=== PATIENT | female | born 1955 | race Caucasian/White ===

== ENCOUNTER → 2017-10-07 | Outpatient (CLI) | payer OTHER ==
[2017-10-07 12:25] LABS: HEMATOCRIT 41.5 % (37-47); HEMOGLOBIN 14.3 g/dL (12.0-16.0); MEAN CELL VOLUME 90.8 fL (80-100); MEAN CORPUSCULAR HEMOGLOBIN 31.3 pg (25-34); MEAN CORPUSCULAR HGB CONC 34.5 g/dl (32-36); MEAN PLATELET VOLUME 10.5 fL (7.4-10.4); PLATELET COUNT 293 K/uL (130-400); RED CELL DISTRIBUTION WIDTH CV 12.9 % (11.5-14.5); RED CELL DISTRIBUTION WIDTH SD 42.7 fL (36.4-46.3)
[2017-10-07 12:30] LABS: ALBUMIN 3.7 gm/dl (3.4-5.0); ALT/SGPT 24 U/L (12-78); BLOOD UREA NITROGEN 15 mg/dl (7-18); CALCIUM 9.3 mg/dl (8.5-10.1); CARBON DIOXIDE 27 mmol/L (21-32); CREATININE 0.55 mg/dl (0.60-1.20); GLUCOSE 96 mg/dl (70-99); SODIUM 138 mmol/L (136-145)
[2017-10-07 12:37] LABS: HEMOGLOBIN A1C 5.4 % (4.5-5.6)
[2017-10-07 12:41] LABS: ALKALINE PHOSPHATASE 66 U/L (45-117); AST/SGOT 11 U/L (15-37); TOTAL PROTEIN 7.6 gm/dl (6.4-8.2)
== END | disposition home or self-care (01) ==
LOC: C.LABPBG 10:56
PROVIDERS: ATTEND Physician Assistant
DX: R53.83 Other fatigue (principal); Z13.21 Encounter for screening for nutritional disorder; Z13.1 Encounter for screening for diabetes mellitus

== ENCOUNTER 2017-10-15 11:50 | Emergency (ER) | payer OTHER ==
[~2017-10-15] VITALS: Ht 152.4 cm; Wt 68.0 kg
[2017-10-15 12:08] VITALS: TEMP 36.9; Ht 152.4 cm; Wt 68.0 kg
--- NOTE | 2017-10-15 12:24 | EMERGENCY ROOM VISIT NOTE ---
History Report prepared by [place]: Chris Awan Under the Supervision of: Dr. Humza Lynn M.D. First contact with patient: 12:12 Chief Complaint: HYPOTENSION Stated Complaint: LOW BP History of Present Illness The patient is a 62 year old female who presents to the Emergency Room with complaints of nausea that began this morning. She has a past medical history of hypotension for the past year and has been following up with her PCP. However, she is not currently on any prescribed medications. When the patient woke up this morning, she took her blood pressure which was 102 systolically. She then began to feel very nauseated with an increased thirst. Over the past year, she has been very conscientious about her blood pressures and the foods she eats. She has been trying to increase her sodium intake and increase her fluid intake. Secondary to this, she has been urinating very frequently. She denies any abnormal leg swelling. She notes that she recently wore a Holter monitor but does not know the results yet. Her only change to her daily supplements was an increase of her Vitamin D. Source of History: patient Onset: this morning Position: other (GI) Symptom Intensity: moderate Quality: other (Nausea) Timing: constant Note: She has had an increased thirst. She denies any leg swelling. Review of Systems See HPI for pertinent positives & negatives. A total of 10 systems reviewed and were otherwise negative. Past Medical & Surgical Medical Problems: (1) Hypotension Family History Patient reports no known family medical history. Social History Smoking Status: Never Smoker Smokeless Tobacco Use: No Drug Use: none Occupation Status: employed Current/Historical Medications No Active Prescriptions or Reported Meds Allergies Coded Allergies: No Known Allergies (Unverified , 10/15/17) Physical Exam Vital Signs Date Time Temp Pulse Resp B/P (MAP) Pulse Ox O2 Delivery O2 Flow Rate FiO2 10/15/17 14:31 79 16 122/79 97 10/15/17 13:35 79 116/80 102 118/86 88 129/85 10/15/17 12:08 36.9 90 16 120/84 99 Room Air Physical Exam GENERAL: Patient is in no acute distress. HEENT: No acute trauma, normocephalic atraumatic, mucous membranes moist, no nasal congestion, no scleral icterus. NECK: No stridor, no adenopathy, no meningismus, trachea is midline. LUNGS: Clear to auscultation bilaterally, no wheeze, no rhonchi, breath sounds equal. HEART: Without murmurs gallops or rubs, regular rate and rhythm. ABDOMEN: Soft, nontender, bowel sounds positive, no hernias, no peritonitis. EXTREMITIES: No cyanosis or edema, full range of motion of all the joints without pain or difficulty, no signs for acute trauma. NEUROLOGIC: Oriented x 3, no acute motor or sensory deficits, no focal weakness. SKIN: No rash, no jaundice, no diaphoresis. Medical Decision & Procedures ER Provider Diagnostic Interpretation: Radiology results as stated below per my review and radiologist interpretation: CHEST ONE VIEW PORTABLE CLINICAL HISTORY: EVALUATE ALTERED MENTAL STATUS/WEAKNESS COMPARISON STUDY: No previous studies for comparison. FINDINGS: An oval-shaped partially calcified focus overlying the right lower chest likely reflects a calcified right breast implant. The lung volumes are normal. There is no pneumothorax or pleural effusion. Pulmonary vascularity is normal. Cardiac size is normal. Mediastinal contours are unremarkable. IMPRESSION: No acute cardiopulmonary findings. Electronically signed by: Kiran Morgan M.D. 10/15/2017 12:56 PM Dictated Date/Time: 10/15/2017 12:55 PM Laboratory Results 10/15/17 12:30 Red Blood Count 4.78, Mean Corpuscular Volume 91.0, Mean Corpuscular Hemoglobin 31.2, Mean Corpuscular Hemoglobin Concent 34.3, Mean Platelet Volume 10.0, Neutrophils (%) (Auto) 72.8, Lymphocytes (%) (Auto) 17.0, Monocytes (%) (Auto) 8.2, Eosinophils (%) (Auto) 1.2, Basophils (%) (Auto) 0.5, Neutrophils # (Auto) 7.75, Lymphocytes # (Auto) 1.81, Monocytes # (Auto) 0.87, Eosinophils # (Auto) 0.13, Basophils # (Auto) 0.05 10/15/17 12:30 Test 10/15/17 12:30 10/15/17 12:35 White Blood Count 10.64 K/uL (4.8-10.8) Red Blood Count 4.78 M/uL (4.2-5.4) Hemoglobin 14.9 g/dL (12.0-16.0) Hematocrit 43.5 % (37-47) Mean Corpuscular Volume 91.0 fL (80-100) Mean Corpuscular Hemoglobin 31.2 pg (25-34) Mean Corpuscular Hemoglobin Concent 34.3 g/dl (32-36) Platelet Count 270 K/uL (130-400) Mean Platelet Volume 10.0 fL (7.4-10.4) Neutrophils (%) (Auto) 72.8 % Lymphocytes (%) (Auto) 17.0 % Monocytes (%) (Auto) 8.2 % Eosinophils (%) (Auto) 1.2 % Basophils (%) (Auto) 0.5 % Neutrophils # (Auto) 7.75 K/uL (1.4-6.5) Lymphocytes # (Auto) 1.81 K/uL (1.2-3.4) Monocytes # (Auto) 0.87 K/uL (0.11-0.59) Eosinophils # (Auto) 0.13 K/uL (0-0.5) Basophils # (Auto) 0.05 K/uL (0-0.2) RDW Standard Deviation 42.3 fL (36.4-46.3) RDW Coefficient of Variation 12.8 % (11.5-14.5) Immature Granulocyte % (Auto) 0.3 % Immature Granulocyte # (Auto) 0.03 K/uL (0.00-0.02) Anion Gap 6.0 mmol/L (3-11) Est Creatinine Clear Calc Drug Dose 78.4 ml/min Estimated GFR () 110.8 Estimated GFR (Non- 95.6 BUN/Creatinine Ratio 20.6 (10-20) Calcium Level 9.7 mg/dl (8.5-10.1) Magnesium Level 2.4 mg/dl (1.8-2.4) Total Bilirubin 0.2 mg/dl (0.2-1) Aspartate Amino Transf (AST/SGOT) 10 U/L (15-37) Alanine Aminotransferase (ALT/SGPT) 24 U/L (12-78) Alkaline Phosphatase 66 U/L (45-117) Troponin I < 0.015 ng/ml (0-0.045) Total Protein 8.1 gm/dl (6.4-8.2) Albumin 4.0 gm/dl (3.4-5.0) Globulin 4.1 gm/dl (2.5-4.0) Albumin/Globulin Ratio 1.0 (0.9-2) Thyroid Stimulating Hormone (TSH) 1.810 uIu/ml (0.300-4.500) Urine Color YELLOW Urine Appearance CLEAR (CLEAR) Urine pH 6.5 (4.5-7.5) Urine Specific [place] 1.011 (1.000-1.030) Urine Protein NEG (NEG) Urine Glucose (UA) NEG (NEG) Urine Ketones NEG (NEG) Urine Occult Blood NEG (NEG) Urine Nitrite NEG (NEG) Urine Bilirubin NEG (NEG) Urine Urobilinogen NEG (NEG) Urine Leukocyte Esterase NEG (NEG) Laboratory results reviewed by me. ECG Indication: nausea Rate (beats per minute): 86 Rhythm: normal sinus Findings: no acute ischemic change, no ectopy Change: ECG interpreted by me ED Course 1212: The patient was evaluated in room C1. A complete history and physical exam was performed. 1300: The patient's orthostatic vital signs were negative. 1355: I spoke with Vanessa Anderson PA-C of family practice at this time. We discussed the patient's case. She recommended following up with cardiology in the near future. 1422: Reevaluated the patient. Discussed results and discharge instructions: She verbalized understanding and agreement. The patient is ready for discharge. Medical Decision Differential diagnosis includes but is not limited to dehydration, electrolyte imbalance, UTI, infection, cardiomegaly, dysrhythmia, and anemia. There is no leukocytosis or concerning anemia. No significant electrolyte abnormality, kidney failure or hepatitis. The patient appears to be in a euthyroid state. Orthostatic vital signs are negative. EKG shows a sinus rhythm, no acute ischemia. Cardiac enzyme testing 1 is not consistent with acute cardiac injury. Urinalysis does not show infection. Chest film does not show pneumonia, pneumothorax or cardiomegaly. The patient presents with concerns for her blood pressure. Her pressure has been somewhat low at times but nothing thought critical. The patient was reassured by her workup. I did contact her family doctor's office. The patient will be seen in the outpatient office for a reexam and possibly further testing if felt indicated. I did suggest the patient try some salt tablets over -the-counter, this may help the blood pressure. I did tell her to stop checking her blood pressure so frequently. Medication Reconcilliation Current Medication List: was personally reviewed by me Blood Pressure Screening Patient's blood pressure: Low blood pressure Consults Time Called: 1350 Consulting Physician: Vanessa Anderson PA-C - [facility] Returned Call: [phone] We discussed the patient's case. She recommended following with cardiology in the near future. Impression Primary Impression: Lightheadedness Scribe Attestation The scribe's documentation has been prepared under my direction and personally reviewed by me in its entirety. I confirm that the note above accurately reflects all work, treatment, procedures, and medical decision making performed by me. Departure Information Dispostion Home / Self-Care Prescriptions No Active Prescriptions or Reported Meds Referrals No Doctor, Assigned (PCP) Susy Anderson PA-C Forms HOME CARE DOCUMENTATION FORM, IMPORTANT VISIT INFORMATION, WORK / SCHOOL INSTRUCTIONS Patient Instructions My [facility] Additional Instructions call and set up appt with mariama smiley today stop checking your blood pressure so often consider salt tablets otc as discussed workup today was all ok
[2017-10-15 12:47] LABS: BASO % 0.5 %; BASO ABS # 0.05 K/uL (0-0.2); EOS % 1.2 %; EOS ABS # 0.13 K/uL (0-0.5); HEMATOCRIT 43.5 % (37-47); HEMOGLOBIN 14.9 g/dL (12.0-16.0); IG# 0.03 K/uL (0.00-0.02); LYMPH ABS # 1.81 K/uL (1.2-3.4); MEAN CORPUSCULAR HEMOGLOBIN 31.2 pg (25-34); MEAN CORPUSCULAR HGB CONC 34.3 g/dl (32-36); MONO % 8.2 %; MONO ABS # 0.87 K/uL (0.11-0.59); NEUT % 72.8 %; NEUT ABS # 7.75 K/uL (1.4-6.5); PLATELET COUNT 270 K/uL (130-400); RED CELL DISTRIBUTION WIDTH CV 12.8 % (11.5-14.5); RED CELL DISTRIBUTION WIDTH SD 42.3 fL (36.4-46.3); WHITE BLOOD COUNT 10.64 K/uL (4.8-10.8)
--- NOTE | 2017-10-15 12:57 | DIAGNOSTIC IMAGING REPORT ---
CHEST ONE VIEW PORTABLE CLINICAL HISTORY: EVALUATE ALTERED MENTAL STATUS/WEAKNESS COMPARISON STUDY: No previous studies for comparison. FINDINGS: An oval-shaped partially calcified focus overlying the right lower chest likely reflects a calcified right breast implant. The lung volumes are normal. There is no pneumothorax or pleural effusion. Pulmonary vascularity is normal. Cardiac size is normal. Mediastinal contours are unremarkable. IMPRESSION: No acute cardiopulmonary findings. Electronically signed by: Kiran Morgan M.D. 10/15/2017 12:56 PM Dictated Date/Time: 10/15/2017 12:55 PM
[2017-10-15 13:04] LABS: ALT/SGPT 24 U/L (12-78); BLOOD UREA NITROGEN 13 mg/dl (7-18); CALCIUM 9.7 mg/dl (8.5-10.1); CARBON DIOXIDE 27 mmol/L (21-32); CREATININE 0.64 mg/dl (0.60-1.20); GLUCOSE 98 mg/dl (70-99); POTASSIUM 4.1 mmol/L (3.5-5.1); SODIUM 136 mmol/L (136-145)
[2017-10-15 13:15] LABS: ALKALINE PHOSPHATASE 66 U/L (45-117); AST/SGOT 10 U/L (15-37); TOTAL PROTEIN 8.1 gm/dl (6.4-8.2)
[2017-10-15 14:31] VITALS: BP 122/79; PULSE 79; O2SAT 97
== END 2017-10-15 14:32 | disposition home or self-care (01) ==
LOC: C.EDB 11:51 → C.EDC 14:32
DX: R42 Dizziness and giddiness (principal); R35.0 Frequency of micturition

== ENCOUNTER → 2017-11-14 | Day surgery (SDC) | payer OTHER ==
[~2017-11-14] VITALS: Ht 165.1 cm; Wt 68.1 kg
[2017-11-14 09:40] VITALS: BP 133/84; PULSE 92; O2SAT 96; Ht 165.1 cm; Wt 68.1 kg
--- NOTE | 2017-11-14 11:43 | [facility] Operative Report ---
Operative Report Date of Service Nov 14, 2017. Operative Report Procedure performed: Tilt-table test Indication: Dizziness Procedure in detail The patient was informed the risks benefits alternatives to the intended procedure. She understood such which proceed. She was placed in a supine position on the tilt table and secured into place. Continuous monitoring was then initiated which included pulse oximetry, telemetry and intermittent blood pressure monitoring. Patient wants subsequent tilted to 70 degrees and monitored for symptoms and hemodynamics. At the conclusion of the test the patient was returned to the supine position. Hemodynamics and symptoms were allowed to return to normal prior to discharge. The patient tolerated procedure well. There no immediate complications. Findings: Initial blood pressure was 133/84 There were no significant changes in blood pressure or pulse with tilt-table testing There were no symptoms reported The blood pressure at discharge was 116/82 with a pulse of 81 Impression: Normal head-up tilt table test without symptoms or hemodynamic derangement I attest to the content of the Intraoperative Record and any orders documented therein. Any exceptions are noted below.
== END | disposition home or self-care (01) ==
LOC: C.CATH 09:07
PROVIDERS: ATTEND Internal Medicine Clinical Cardiac Electrophysiology
DX: R42 Dizziness and giddiness (principal); F17.200 Nicotine dependence, unspecified, uncomplicated; Z82.49 Family history of ischemic heart disease and other diseases of the circulatory system; Z83.3 Family history of diabetes mellitus; Z80.0 Family history of malignant neoplasm of digestive organs; Z80.3 Family history of malignant neoplasm of breast; Z98.51 Tubal ligation status

== ENCOUNTER → 2018-01-28 | Outpatient (CLI) | payer OTHER ==
--- NOTE | 2018-01-29 15:23 | MAMMOGRAPHY REPORT ---
BILATERAL DIGITAL SCREENING MAMMOGRAM WITH CAD: 01/28/2018 CLINICAL HISTORY: Routine screening. Patient has no complaints. TECHNIQUE: Bilateral CC and MLO views of the breasts with and without implant displacement views were obtained. Current study was also evaluated with a Computer Aided Detection (CAD) system. COMPARISON: Prior outside mammograms dated 04/27/2016, 10/27/2015, diagnostic spot compression views fr om 10/27/2015 and breast ultrasounds dated 10/27/2015 and 04/27/2016. BREAST COMPOSITION: The tissue of both breasts is heterogeneously dense, which may obscure small mas ses. FINDINGS: Bilateral subglandular implants are stable comparing to the prior outside mammograms. The left implant is a saline filled implant, and the right appears to be silicone. There are stable howard gn-appearing partially circumscribed and lobulated masses bilaterally. No new suspicious mass, archi tectural distortion or cluster of microcalcifications is seen. IMPRESSION: ACR BI-RADS CATEGORY 1: NEGATIVE There is no mammographic evidence of malignancy. A 1 year screening mammogram is recommended. The pa tient will receive written notification of the results. Approximately 10% of breast cancers are not detected with mammography. A negative mammographic report should not delay biopsy if a clinically suggestive mass is present. Lyudmila Bowers M.D. ay/:01/29/2018 12:41:09 Pacu Rn: Al Holliday M, [facility] letter sent: Normal 1/2 BI-RADS Code: ACR BI-RADS Category 1: Negative
== END | disposition home or self-care (01) ==
LOC: C.MAMM 12:54
PROVIDERS: ATTEND Physician Assistant
DX: Z12.31 Encounter for screening mammogram for malignant neoplasm of breast (principal); Z98.82 Breast implant status

== ENCOUNTER → 2018-02-03 | Outpatient (CLI) | payer OTHER | END | disposition home or self-care (01) | LOC: C.LABPBG 07:26 | PROVIDERS: ATTEND Physician Assistant | DX: E55.9 Vitamin D deficiency, unspecified (principal); Z00.00 Encounter for general adult medical examination without abnormal findings ==

== ENCOUNTER 2018-11-15 21:49 | Inpatient (IN) ==
[2018-11-15] MEDS ORDERED: SODIUM CHLORIDE 0.9% 1000ML 1,000 ML IV SCH (22:15)
[2018-11-15 22:31] LABS: Basophils # (auto) 0.01 K/uL (0-0.2); Basophils % (auto) 0.1 %; Eosinophils # (auto) 0.02 K/uL (0-0.5); Eosinophils % (auto) 0.3 %; Hemoglobin 9.6 g/dL (12.0-16.0); Immature Granulocytes # (auto) 0.01 K/uL (0.00-0.02); Immature Granulocytes % (auto) 0.1 %; Lymphocytes % (auto) 14.5 %; Mean Corpuscular Hgb Conc 34.3 g/dL (32-36); Mean Corpuscular Volume 92.7 fL (80-100); Monocytes # (auto) 0.05 K/uL (0.11-0.59); Monocytes % (auto) 0.7 %; Neutrophils # (auto) 6.38 K/uL (1.4-6.5); Neutrophils % (auto) 84.3 %; Platelet Count 303 K/uL (130-400); RDW Coefficient of Variation 14.9 % (11.5-14.5); RDW Standard Deviation 50.8 fL (36.4-46.3); Red Blood Count 3.02 M/uL (4.2-5.4); White Blood Count 7.57 K/uL (4.8-10.8)
[2018-11-15 22:51] LABS: Appearance Urine Clear (Clear); Bacteria Urine Automated Negative (Negative); Bilirubin Urine Negative (Negative); Blood Urine Negative (Negative); Cast Urine Automated 0 /lpf (0-5); Color Urine Yellow; Epithelial Cell Urine Auto >30 /lpf (0-5); Glucose Urine UA Negative (Negative); Ketones Urine Negative (Negative); Leukocyte Esterase Urine Trace (Negative); Nitrite Urine Negative (Negative); Protein Urine 1+ (Negative); RBC Urine Automated 0-4 /hpf (0-4); Specific Gravity Urine 1.015 (1.000-1.030); Urobilinogen Urine Negative (Negative)
[2018-11-15 22:53] LABS: Alanine Aminotransferase 39 U/L (12-78); Albumin Level 3.2 gm/dl (3.4-5.0); Aspartate Aminotransferase 34 U/L (15-37); Blood Urea Nitrogen 23 mg/dl (7-18); Calcium 6.4 mg/dl (8.5-10.1); Carbon Dioxide 27 mmol/L (21-32); Chloride 95 mmol/L (98-107); Est GFR (African American) 78.9; Glucose 121 mg/dl (70-99); Potassium 3.8 mmol/L (3.5-5.1); Sodium 132 mmol/L (136-145)
[2018-11-15 23:03] LABS: Albumin Globulin Ratio 0.9 (0.9-2); Alkaline Phosphatase 120 U/L (45-117); Bilirubin,Total 0.3 mg/dl (0.2-1); Creatine Kinase 58 U/L (26-192); Globulin 3.6 gm/dl (2.5-4.0); Total Protein 6.8 gm/dl (6.4-8.2); Troponin I < 0.015 ng/ml (0-0.045)
[2018-11-15] MEDS ORDERED: ONDANSETRON INJ 2 MG/ML 2 ML VIAL IV STA (23:23)
[2018-11-15] MEDS ORDERED: METOCLOPRAMIDE HCL INJ 5 MG/ML 2 ML VIAL IV STA (23:25)
--- NOTE | 2018-11-16 00:21 | History & Physical Report ---
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 Presents with nausea, vomiting and weakness. The pt received chemotherapy this week on Sat, Sat, [place] with Etoposide and Cisplatinum. Her symptoms have progressed since completing the chemo. She was at [facility] earlier in the day and was treated with IVF and antiemetics and released. Her symptoms recurred shortly after discharge. She does not have fevers, rigors. diarrhea, SOB or dysuria. 1) Intractable nausea and vomiting - placed on IVF, antiemetics. We will introduce a liquid diet AM as possible. 2) Lung CA - she has requested to see her oncologist so that we ahve placed o consult to address potential side effects of her current regimen. 3) SIADH - Na is at baseline or improved 4) Chronic pain - she is not tolerating PO so we have placed her on IV Narcotics for breakthrough and will continue her TD Fentanyl. 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 Presents with nausea, vomiting and weakness. The pt received chemotherapy this week on Sat, Sat, [place] with Etoposide and Cisplatinum. Her symptoms have progressed since completing the chemo. She was at [facility] earlier in the day and was treated with IVF and antiemetics and released. Her symptoms recurred shortly after discharge. She does not have fevers, rigors. diarrhea, SOB or dysuria. 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 Social: Does not smoke or drink, however, she has a 40+ pack year history Family: CA, CAD Allergies Allergy/AdvReac Type Severity Reaction Status Date / Time epinephrine AdvReac Mild Palpitation Verified 08/11/18 21:35 s Home Medications Home Medications Medication Instructions Recorded Confirmed Type cholecalciferol (vitamin D3) 2,000 unit PO DAILY 07/18/18 11/15/18 History [Vitamin D3] multivitamin 1 tab PO DAILY 07/18/18 11/15/18 History lorazepam [Ativan] 1 mg PO HS PRN 08/11/18 11/15/18 History ondansetron HCl [Zofran] 8 mg PO Q8 PRN 08/11/18 11/15/18 History oxycodone 5 - 10 mg PO Q4 PRN 08/11/18 11/15/18 History prochlorperazine maleate 10 mg PO UD PRN 08/11/18 11/15/18 History [Compazine] loratadine [Allergy Relief 10 mg PO DAILY #30 tab 09/06/18 11/15/18 Rx (loratadine)] tramadol 50 mg PO Q4H PRN #30 tab 09/06/18 11/15/18 Rx fentanyl [Duragesic] 1 patch TOPICAL [id number] 11/15/18 11/15/18 History Past Med/Surg History Medical History Leukocytosis Anemia Elevated LFTs Sacroiliac dysfunction Liver metastases (Acute) Small cell lung carcinoma (Acute) SIADH (syndrome of inappropriate ADH production) (Acute) Weakness (Acute) Lung mass (Acute) Family History Other Diabetes Social History Preferred Language: Citizen Of [place] Beliefs That Will Affect Care: None marital status: / Current Living Situation: Alone Feels Safe at Home: Yes Smoking Status: Former smoker Hx Alcohol Use: No Hx Substance Use: No Review of Systems Gen: Denies fevers, reprts weakness, malaise "feeling shaky" ENT: Denies congestion, throat pain, hearing loss Eyes: Denies acute visual changes CV: Denies CP, palpitations Pulmonary: Denies SOB, cough, wheezing GI: Nausea and vomiting as above. Neuro: Denies acute or unilateral weakness, acute gait impairment, headache or acute visual changes Musculoskeletal: Chronic back pain Endocrine: Denies polydipsia, polyuria Skin: Denies acute rashes or ulcers Physical Exam Vital Signs (Past 24 Hours): Last Vital Signs Temp 37.0 C 11/15/18 21:51 Pulse 105 H 11/15/18 23:36 Resp 18 11/15/18 23:36 BP 123/80 11/15/18 23:36 Pulse Ox 98 11/15/18 23:36 Physical Exam: General: Middle-aged F with a depressed affect, AAO x 3. ENT: No erythema or exudates, no thrush Eyes: HERO, EOMI Head and neck: Normocephalic, atraumatic, No JVD, neck is supple, alopecia noted. Chest/heart: Nontender, S1,2, RRR, no murmurs, no gallops Lungs: CTAB, no wheezing or crackles Abdomen: Nontender, nondistended, BS+ Neuro: AAO x 3, speech is clear, no unilateral weakness or loss of sensation, coordination intact Musculoskeletal: No joint inflammation, muscle tenderness, FROM Skin: No acute rashes or ulcers Extremities: No clubbing, cyanosis, edema
[2018-11-16] MEDS ORDERED: ACETAMINOPHEN 325 MG TAB PO PRN (00:56)
[2018-11-16] MEDS ORDERED: MoRPHine SULFATE 4 MG/ML 1 ML CARP\\VIAL IV PRN (00:56)
[2018-11-16] MEDS ORDERED: OXYCODONE HCL IR 5 MG TAB (IMMEDIATE RELEASE) PO PRN (00:56)
[2018-11-16] MEDS ORDERED: ALUMINUM/MAGNESIUM SUSP 30 ML UDC PO PRN (00:56)
[2018-11-16] MEDS ORDERED: MAGNESIUM HYDROXIDE SUSP 30 ML UDC PO PRN (00:56)
[2018-11-16] MEDS ORDERED: POLYETHYLENE (MIRALAX) 17 GM PACK PO PRN (00:56)
[2018-11-16] MEDS ORDERED: ZOLPIDEM TARTRATE 5 MG TAB PO PRN (00:56)
[2018-11-16] MEDS: D5NSS + 20MEQ KCL 20 MEQ/1,000 ML BAG IV SCH ×2 (01:21→08:58)
[2018-11-16] MEDS: CHECK FENTANYL PATCH PLACEMENT SCH ×3 (01:26→23:14)
--- NOTE | 2018-11-16 06:33 | XRay Report ---
XR abdomen 2V w PA chest HISTORY: 63 years-old Female Pt c/o abd pain acute generalized abdominal pain COMPARISON: CT abdomen pelvis 11/07/2018, chest radiograph 09/03/2018 TECHNIQUE: PA view of the chest with erect and supine views of the abdomen FINDINGS: Cardiomediastinal and hilar silhouettes are within normal limits. No pneumothorax, pleural effusion, focal airspace consolidation or overt pulmonary edema. Capsular calcification about the right breast. 1.3 cm sclerotic lesion of the proximal right humerus is new from 09/03/2018. Please at Ill-defined sclerosis about the pelvis and spine with 1.1 cm sclerotic lesion of the right iliac wing . No evidence of acute pathologic fracture. Bowel gas pattern is nonobstructive. No urolith. No pneum atosis or pneumoperitoneum. IMPRESSION: 1. No acute cardiopulmonary abnormality. 2. Nonobstructive bowel gas pattern. 3. Diffuse sclerotic metastasis redemonstrated. The above report was generated using voice recognition software. It may contain grammatical, syntax o r spelling errors. Electronically signed by: Je Simmons M.D. 11/16/2018 6:32 AM
[2018-11-16] MEDS: HEPARIN SOD 5,000 UNIT/0.5 ML VIAL SQ SCH ×2 (08:58→20:30)
[2018-11-16] MEDS: fentaNYL 25 MCG/HR TDSY TD SCH (09:01)
[2018-11-16 09:36] LABS: Alanine Aminotransferase 36 U/L (12-78); Albumin Level 3.1 gm/dl (3.4-5.0); Aspartate Aminotransferase 33 U/L (15-37); BUN Creatinine Ratio 21.1 (10-20); Blood Urea Nitrogen 16 mg/dl (7-18); Calcium 6.2 mg/dl (8.5-10.1); Carbon Dioxide 30 mmol/L (21-32); Chloride 98 mmol/L (98-107); Est GFR (African American) 99.9; Est GFR (Non-African American) 86.2; Glucose 102 mg/dl (70-99); Potassium 3.7 mmol/L (3.5-5.1); Sodium 132 mmol/L (136-145)
[2018-11-16 09:37] LABS: Albumin Globulin Ratio 0.9 (0.9-2); Alkaline Phosphatase 127 U/L (45-117); Bilirubin,Total 0.3 mg/dl (0.2-1); Globulin 3.5 gm/dl (2.5-4.0); Total Protein 6.6 gm/dl (6.4-8.2)
--- NOTE | 2018-11-16 10:14 | Consultation Report ---
DATE OF CONSULTATION: 11/16/2018 MEDICAL ONCOLOGY CONSULTATION REASON FOR CONSULTATION: The patient admitted for intractable nausea and vomiting and generalized weakness. HISTORY OF PRESENT ILLNESS: Oralia Nuñez is a very pleasant, but unfortunate 63-year-old female patient who presents to [facility]'s Emergency Room for intractable nausea and vomiting, generalized weakness. Oralia is a patient of mine, diagnosed with extensive-stage small cell lung cancer in July of 2018. At that time, she demonstrated hepatic metastatic disease as well as intrathoracic disease. Interestingly, her bone scan was negative despite complaining of skeletal pain on presentation. She was subsequently started on combination cisplatin and etoposide. Specifically on 11/13/2018, she received day 3 of her fifth cycle of treatment. The patient had been seen by JOAQUIN Cohen and reviewed her most recent treatment scans which revealed markedly decreased left hilar neoplasm with decreased size of mediastinal adenopathy. Interestingly, there was interval development of numerous sclerotic metastatic lesions throughout the bony skeleton. There were still innumerable hepatic metastases redemonstrated. Oralia continues to maintain a decent performance status. When I saw her at bedside, she proclaimed to be feeling better, but still has not taken any solid foods. As part of workup, KUB was performed showing no evidence of small-bowel obstruction. From a laboratory standpoint, she is mildly anemic and her sodium is slightly below normal at 132. 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 PAST MEDICAL HISTORY: Again, significant for extensive stage small cell lung cancer, SIADH, chronic anemia. CURRENT MEDICATIONS: Include fentanyl 25 mcg topically q. 72 hours, tramadol 50 mg p.o. q. 4 hours p.r.n., loratadine 10 mg p.o. daily, Compazine 10 mg p.o. q. 6 hours p.r.n., oxycodone 5-10 mg p.o. q. 4 hours p.r.n., Zofran 8 mg p.o. q. 8 hours p.r.n., Ativan 1 mg p.o. at bedtime p.r.n., multivitamin 1 p.o. daily, cholecalciferol 2000 units p.o. daily. ALLERGIES: EPINEPHRINE. SOCIAL HISTORY: [place] She is . She is a nonsmoker and nondrinker. She does have a 33-[id number] history. FAMILY HISTORY: Positive for coronary artery disease and cancer. REVIEW OF SYSTEMS: As per HPI, most notably for asthenia, generalized weakness, poor appetite and intractable nausea and vomiting. No fevers, chills or sweats. SKIN: No rashes or lesions. Severe alopecia is noted. HEENT: Negative for headaches, lightheadedness or dizziness. No acute visual or hearing deficits. No sinus symptoms, sore throat or dysphagia. LYMPH: No history of lymphoproliferative disease. CARDIAC: Negative for coronary artery disease, no angina or palpitations. PULMONARY: Negative for COPD. She is not short of breath, dyspneic or orthopneic. No cough or hemoptysis. GASTROINTESTINAL: Positive for nausea and vomiting. She has no subacute abdominal pain. No diarrhea or constipation, hematochezia or melena stools. GENITOURINARY: No hematuria, dysuria, or urinary incontinence. PSYCHIATRIC: Positive for anxiety. MUSCULOSKELETAL: Positive for diffuse musculoskeletal pain attributable to her disease today. No arthralgias or myalgias. ENDOCRINE: Negative for diabetes or thyroid disease. NEUROLOGIC: Negative for seizure, stroke, or migraine headache. HEMATOLOGIC: Positive for anemia attributable to chemotherapy. PHYSICAL EXAMINATION: GENERAL: Very pleasant 63-year-old female in no acute distress. VITAL SIGNS: Temperature 36.7, pulse 102, respiratory rate 18, blood pressure 121/83. SKIN: Warm, dry, noncyanotic without petechia, rash or ecchymosis. HEENT: Head: Atraumatic, normocephalic. Eyes: PERRLA, EOMI. Sclerae nonicteric. Alopecia is noted. Nares are patent without rhinorrhea or discharge. Throat clear. Tongue midline. No buccal lesions or ulceration. NECK: Supple, trachea midline. No JVD or thyromegaly. LYMPH: No cervical, supraclavicular or axillary palpable nodes. HEART: Regular rate and rhythm. No clicks, rubs, murmurs or gallops. LUNGS: Clear to auscultation bilaterally. ABDOMEN: Soft, nontender, nondistended without palpable hepatosplenomegaly. EXTREMITIES: No calf tenderness or swelling. No clubbing, cyanosis or edema. NEUROLOGICALLY: She is awake, alert and oriented x3. Cranial nerves II-XII are intact. No gross motor or sensory deficits are noted. LABORATORY DATA: Sodium 132, potassium 3.8, chloride 95, carbon dioxide 27, creatinine 0.9, BUN 23, albumin 3.2. WBC is 7570, hemoglobin 9.6, platelet count 303,000. IMPRESSION: 1. Asthenia attributable to chemotherapeutic effect. 2. Anorexia. 3. Extensive small cell lung cancer. 4. Hypoalbuminemia. PLAN: I visited with Oralia at bedside this morning. The patient is well known to [facility], currently under my care for lung cancer. She is in the midst of her fifth out of 6 cycles of cisplatin and etoposide. For the most part, she has done relatively well, had been able to manage her symptomatology in the past. I suspect as with many patients when treatment progresses forward, these adverse effects emerge. She feels much better today. She is not started solid foods, however, and would give her another 24 hours to make sure she is tolerating her diet. I agree with medical management otherwise which is largely supportive. There is no evidence of emerging infection or other issues to prolong her stay. Continue pain management. Encourage p.o. intake moving forward. Oralia is scheduled to return prior to her sixth and final cycle and most likely we will reduce her dose. Mid treatment scans show a mixed picture with most of the visceral disease showing response; however, skeletal disease appears to have emerged despite normal bone scan at diagnosis back in July. We will discuss further with Oralia upon followup. Thank you for your assistance in caring for this very nice lady. Dr. Ohara will take over service tomorrow.
--- NOTE | 2018-11-16 11:40 | Family Medicine Progress Note ---
Date of Service November 16, 2018 Assessment & Plan (1) Intractable nausea and vomitin yo F with history of Small Cell Lung Carcinoma with metastasis to Liver, Bone, chronic LFT elevations, SIADH, anemia. Presents with nausea, vomiting and weakness in the setting of recent chemotherapy. Nausea/Vomiting -- improving - chemo-therapy induced - Abdominal XR negative for obstruction, though findings indicative metastasis - Continue IV fluids, IV Zofran PRN (2) Small cell lung carcinoma: Small Cell Lung cancer with metastasis to Bone, Liver - Pain control - Anti-emetics as above - patient of Dr. Holbrook--consult at request of patient (3) SIADH (syndrome of inappropriate ADH production): Na 132 on arrival--near or better than baseline range s/p 2 L IV fluids with D5with 20mEq K on admission Continue IV fluids at maintenance rate (4) Chronic pain: PRN Morphine, PRN Oxycodone (5) DVT prophylaxis: Heparin (6) Generalized weakness: multifactorial due to malignancy, chemotherapy, dehydration in setting of N/V - IV fluids as above - PT/OT consulted -F/u Heme-Onc report Supervising Physician Co-Signing Physician Notes Patient seen and examined with Dr. Henson. Agree with history, physical exam, assessment and plan of care as outlined. Reviewed H&P. In brief, Ms. Nuñez is a 63 year old female with hx of small cell lung ca with hepatic and bone mets, chronic LFT elevation, SIADH, and anemia who is admitted for intractable nausea and vomiting following chemotherapy earlier this week. She had tried anti-emetics at home, but had persistent vomiting. This morning, she is feeling better. Had not had any vomiting, but feeling generally weak and getting dizzy when she gets up. Was able to tolerate liquids then small bites of solid food without emesis. Able to ambulate to the bathroom independently. VSS. Moist mucus membranes. Abdomen soft, nontender. Labs reviewed. Imaging reviewed. 1. intractable nausea/vomiting--improving. Cont IVFs and PRN anti-emetics. If improving throughout the day, can slow IVF rate and continue to PO challenge. 2. small cell lung cancer. per heme/onc. 3. protein malnutrition. nutrition consult. 4. SIADH secondary to lung ca. Na at or better than baseline. 5. chronic pain. Continue home pain regimen. Dispo: anticipate discharge in the next day or two as she continues to improve clinically. Subjective Patient reports resolution of N/V as of this morning. She is experiencing generalized weakness, occasional lightheadedness. She is tolerating food in small amounts. She denies abdominal pain, change in stools, fevers, chills Constitutional: + weakness; no fever and no chills Respiratory: no cough and no dyspnea Cardiovascular: no chest pain, no dyspnea, no palpitations and no edema Gastrointestinal: + nausea (resolved) and + vomiting (resolved); no change in stools Genitourinary (Female): no dysuria, no urinary frequency and no urinary urgency Physical Exam Vital Signs (Past 24 Hours): Last Vital Signs Temp 36.7 C 11/16/18 07:32 Pulse 102 H 11/16/18 07:32 Resp 18 11/16/18 07:32 BP 121/83 11/16/18 07:32 Pulse Ox 97 11/16/18 07:32 Constitutional: WD/WN, vitals as above no acute distress Eyes: PERRL and EOM intact bilaterally ENMT: external ear and nose normal, oropharynx normal Neck: trachea midline, no thyromegaly Respiratory: normal respiratory effort, lungs clear to auscultation Cardiovascular: RRR, no murmur, no edema Gastrointestinal (Abdomen): normal bowel sounds, soft, nontender, no hepatosplenomegaly Musculoskeletal: no cyanosis or clubbing, extremities motor strength 5/5 Skin: no rashes, warm and dry Neurologic: PERRL, EOMI, accommodation nl, no face palsy, no dysarthria CN's II-XI intact bilaterally (grossly) and awake Psychiatric: A+Ox3, euthymic affect Results & Data Laboratory Results Laboratory Results WBC 7.57 K/uL (4.8-10.8) 11/15/18 22:25 RBC 3.02 M/uL (4.2-5.4) L 11/15/18 22:25 Hgb 9.6 g/dL (12.0-16.0) L 11/15/18 22:25 Hct 28.0 % (37-47) L 11/15/18 22:25 MCV 92.7 fL (80-100) 11/15/18 22:25 MCH 31.8 pg (25-34) 11/15/18 22:25 MCHC 34.3 g/dL (32-36) 11/15/18 22:25 RDW Std Deviation 50.8 fL (36.4-46.3) H 11/15/18 22:25 RDW Coeff of Tesfaye 14.9 % (11.5-14.5) H 11/15/18 22:25 Plt Count 303 K/uL (130-400) 11/15/18 22: MPV 9.0 fL (7.4-10.4) 11/15/18 22:25 Immature Gran % (Auto) 0.1 % 11/15/18 22:25 Neut % (Auto) 84.3 % 11/15/18 22:25 Lymph % (Auto) 14.5 % 11/15/18 22:25 [place] % (Auto) 0.7 % 11/15/18 22: Eos % (Auto) 0.3 % 11/15/18 22: Baso % (Auto) 0.1 % 11/15/18 22: Immature Gran # (Auto) 0.01 K/uL (0.00-0.02) 11/15/18 22:25 Neut # (Auto) 6.38 K/uL (1.4-6.5) 11/15/18 22:25 Lymph # (Auto) 1.10 K/uL (1.2-3.4) L 11/15/18 22:25 [place] # (Auto) 0.05 K/uL (0.11-0.59) L 11/15/18 22:25 Eos # (Auto) 0.02 K/uL (0-0.5) 11/15/18 22:25 Baso # (Auto) 0.01 K/uL (0-0.2) 11/15/18 22:25 Sodium 132 mmol/L (136-145) L 11/16/18 08:49 Potassium 3.7 mmol/L (3.5-5.1) 11/16/18 08:49 Chloride 98 mmol/L (98-107) 11/16/18 08:49 Carbon Dioxide 30 mmol/L (21-32) 11/16/18 08:49 Anion Gap 4.0 (3-11) 11/16/18 08:49 BUN 16 mg/dl (7-18) 11/16/18 08:49 Creatinine 0.74 mg/dl (0.6-1.2) 11/16/18 08:49 Est Cr Clr Drug Dosing Not Reportable 11/16/18 08:49 Est GFR ( Amer) 99.9 11/16/18 08:49 Est GFR (Non-Af Amer) 86.2 11/16/18 08:49 BUN/Creatinine Ratio 21.1 (10-20) H 11/16/18 08:49 Glucose 102 mg/dl (70-99) H 11/16/18 08:49 POC Glucose 133 (70-99) H 11/16/18 07:46 Calcium 6.2 mg/dl (8.5-10.1) L 11/16/18 08:49 Total Bilirubin 0.3 mg/dl (0.2-1) 11/16/18 08:49 AST 33 U/L (15-37) 11/16/18 08:49 ALT 36 U/L (12-78) 11/16/18 08:49 Alkaline Phosphatase 127 U/L (45-117) H 11/16/18 08:49 Total Creatine Kinase 58 U/L (26-192) 11/15/18 22:25 Troponin I < 0.015 ng/ml (0-0.045) 11/15/18 22:25 Total Protein 6.6 gm/dl (6.4-8.2) 11/16/18 08:49 Albumin 3.1 gm/dl (3.4-5.0) L 11/16/18 08:49 Globulin 3.5 gm/dl (2.5-4.0) 11/16/18 08:49 Albumin/Globulin Ratio 0.9 (0.9-2) 11/16/18 08:49 TSH 1.760 uIu/ml (0.300-4.500) 11/15/18 22:25 Urine Color Yellow 11/15/18 22:30 Urine Appearance Clear (Clear) 11/15/18 22:30 Urine pH 7.0 (4.5-7.5) 11/15/18 22:30 Ur Specific [place] 1.015 (1.000-1.030) 11/15/18 22:30 Urine Protein 1+ (Negative) H 11/15/18 22:30 Urine Glucose (UA) Negative (Negative) 11/15/18 22:30 Urine Ketones Negative (Negative) 11/15/18 22:30 Urine Blood Negative (Negative) 11/15/18 22:30 Urine Nitrite Negative (Negative) 11/15/18 22:30 Urine Bilirubin Negative (Negative) 11/15/18 22:30 Urine Urobilinogen Negative (Negative) 11/15/18 22:30 Ur Leukocyte Esterase Trace (Negative) H 11/15/18 22:30 Urine WBC (Auto) 1-5 /hpf (0-5) 11/15/18 22:30 Urine RBC (Auto) 0-4 /hpf (0-4) 11/15/18 22:30 U Hyaline Cast (Auto) 0 /lpf (0-5) 11/15/18 22:30 U Epithel Cells (Auto) >30 /lpf (0-5) H 11/15/18 22:30 Urine Bacteria (Auto) Negative (Negative) 11/15/18 22:30 Medications Administered Fentanyl (Duragesic) 25 mcg TD Q72H [facility] Stop: 11/30/18 07:59 Last Admin: 11/16/18 09:01 Dose: 25 mcg Documented by: [id number] Heparin Sodium (Porcine) (Heparin Sodium (Porcine)) 5,000 units SQ Q12 [facility] Stop: 12/16/18 08:59 Last Admin: 11/16/18 08:58 Dose: 5,000 units Documented by: [id number] Cosigned by: [id number] Miscellaneous (Fentanyl Patch Check Placement) 1 ea N/A QS [facility] Stop: 12/16/18 01:29 Last Admin: 11/16/18 15:56 Dose: 1 ea Documented by: [id number] Admin: 11/16/18 01:26 Dose: 1 ea Documented by: [id number] Miscellaneous (Fentanyl Patch Remove & Waste) 1 ea N/A Q72H [facility] Stop: 12/16/18 07:58 Last Admin: 11/16/18 08:58 Dose: 1 ea Documented by: [id number] Cosigned by: [id number] Ondansetron HCl (Zofran) 4 mg IV Q6H PRN PRN Reason: Nausea Stop: 12/16/18 00:55 Last Admin: 11/16/18 15:54 Dose: 4 mg Documented by: [id number] Discontinued Medications Sodium Chloride (Nss 1000ml) 1,000 mls @ 999 mls/hr IV .Q1H1M [facility] Stop: 11/15/18 23:15 Last Infusion: 11/15/18 23:56 Dose: 0 mls/hr Documented by: [id number] Admin: 11/15/18 22:22 Dose: 999 mls/hr Documented by: [id number] Potassium Chloride/Dextrose/Sod Cl (D5nss + 20meq Kcl) 20 meq in 1,000 mls @ 150 mls/hr IV .Q6H40M [facility] Stop: 11/16/18 14:19 Last Infusion: 11/16/18 17:37 Dose: 0 mls/hr Documented by: [id number] Admin: 11/16/18 08:58 Dose: 150 mls/hr Documented by: [id number] Infusion: 11/16/18 08:02 Dose: 150 mls/hr Documented by: [id number] Admin: 11/16/18 01:21 Dose: 150 mls/hr Documented by: [id number] Metoclopramide HCl (Reglan) 10 mg IV NOW STA Stop: 11/15/18 23:26 Last Admin: 11/15/18 23:58 Dose: 10 mg Documented by: [id number] Ondansetron HCl (Zofran) 4 mg IV NOW STA Stop: 11/15/18 23:24 Last Admin: 11/15/18 23:58 Dose: 4 mg Documented by: [id number]
[2018-11-16] MEDS: ONDANSETRON INJ 2 MG/ML 2 ML VIAL IV PRN ×2 (15:54→22:12)
[2018-11-16] MEDS: NSS + 20MEQ KCL 20 MEQ/1,000 ML BAG IV SCH (18:47)
[2018-11-17] MEDS: NSS + 20MEQ KCL 20 MEQ/1,000 ML BAG IV SCH ×3 (04:40→23:29)
[2018-11-17] MEDS: ONDANSETRON INJ 2 MG/ML 2 ML VIAL IV PRN ×4 (04:54→18:25)
[2018-11-17] MEDS: CHECK FENTANYL PATCH PLACEMENT SCH ×3 (08:42→23:30)
[2018-11-17] MEDS: HEPARIN SOD 5,000 UNIT/0.5 ML VIAL SQ SCH ×2 (08:43→20:47)
[2018-11-17] MEDS ORDERED: ONDANSETRON INJ 2 MG/ML 2 ML VIAL IV ONE (08:55)
[2018-11-17] MEDS: PROCHLORPERAZINE MALEATE 5 MG TAB PO PRN ×2 (15:28→20:54)
--- NOTE | 2018-11-17 15:38 | Family Medicine Progress Note ---
Date of Service November 17, 2018 Assessment & Plan (1) Chemotherapy induced nausea and vomitin-year-old female was admitted on 16 November 2018 for nausea, vomiting, and weakness. Of note, she was diagnosed with metastatic (to liver and bone) small cell lung cancer in July 2018 and is presently on chemotherapy. Chemotherapy-induced nausea and vomiting: Patient is s/p multiple cycles of chemotherapy the past few days. X-ray of chest and abdomen noted no acute cardiopulmonary abnormality or evidence of bowel obstruction (see full report). Afebrile but borderline tachycardic. Oncology consulted, see related note. They generally recommend supportive management and will continue to follow. - On Zofran as needed. Added Compazine as needed. - On maintenance IV fluids. Anemia: Admit hemoglobin 9.6 (comparisons between 10-11). Is presently on chemotherapy. Monitoring. Hypocalcemia: Admit calcium 6.2. On chemotherapy. Monitoring. Protein malnutrition: Albumin of 3.1. Nutrition consult (see full report). Recommended supplementation with boost. Ongoing medical issues: - SIADH: On admit, Na 132. Given 2L IVF. Monitoring. - Chronic pain: On scheduled fentanyl patch. On as needed oxycodone and morphine. - Generalized weakness: Multifactorial due to malignancy and chemotherapy. Code status: Full code. Diet: Regular. DVT prophy: Heparin 5000 units every 12 hours. PT/OT: Ordered. Disbo: Admitted for observation to [facility]. - Given the severity of her disease, we will consult palliative care so they can begin discussions of overall goals of care. (2) Anemia: (3) Hypocalcemia: (4) Protein malnutrition: (5) SIADH (syndrome of inappropriate ADH production): (6) Small cell lung carcinoma: (7) Chronic pain: (8) Weakness: Supervising Physician Co-Signing Physician Notes Patient seen and examined with the resident. Agree with history, physical exam, assessment and plan with the following updates/corrections: 63yo F w/ stage IV small cell lung cancer on chemotherapy who presented with nausea and vomiting. Today she continues to have nausea and trouble eating. No emesis for me. Very dispirited about her prognosis. 1) Small cell lung cancer - Progressing despite treatment. Just had her 5th of 6 treatments. Will likely dose reduce per oncology notes. Palliative care consult for general goals of care and symptom discussion. 2) Anemia - Baseline hgb ~10, currently 9.6. No signs of bleeding. Likely chronic disease and/or bone marrow suppresion from chemo. Monitor. Subjective Found patient resting comfortably earlier this morning. She says she continues to have some nausea with a single episode of emesis earlier today. Overall she does feel hungry. She notes that she "feels guilty" and is quite frustrated over the idea that she wants to eat but that it is difficult for her to do so. She says she continues to pick at her food in hopes of getting in enough calories. She denied any focal pains or other physical concerns. Does say that she has some family in the area and that her cousin may come by later today. Physical Exam Vital Signs (Past 24 Hours): Last Vital Signs Temp 36.8 C 11/17/18 15:29 Pulse 97 H 11/17/18 15:29 Resp 20 11/17/18 15:29 BP 116/79 11/17/18 15:29 Pulse Ox 92 11/17/18 15:29 Physical Exam: General Appearance: Awake, alert & oriented, comfortable in general, NAD. CV: +S1S2 RRR, no murmur. Pulm: Clear to auscultation throughout. Abdomen: +BS, soft, non-tender, non-distended. Extremities: No pedal edema or calf tenderness. Moving all extremities natu rally and easily. Neuro: No gross neuro deficits. Psych: Overall seems to feel down, near tearful at times, and is sad about her current uncontrolled nausea. Results & Data Laboratory Results Laboratory Results WBC 7.57 K/uL (4.8-10.8) 11/15/18 22:25 RBC 3.02 M/uL (4.2-5.4) L 11/15/18 22:25 Hgb 9.6 g/dL (12.0-16.0) L 11/15/18 22:25 Hct 28.0 % (37-47) L 11/15/18 22:25 MCV 92.7 fL (80-100) 11/15/18 22:25 MCH 31.8 pg (25-34) 11/15/18 22:25 MCHC 34.3 g/dL (32-36) 11/15/18 22:25 RDW Std Deviation 50.8 fL (36.4-46.3) H 11/15/18 22:25 RDW Coeff of Tesfaye 14.9 % (11.5-14.5) H 11/15/18 22:25 Plt Count 303 K/uL (130-400) 11/15/18 22:25 MPV 9.0 fL (7.4-10.4) 11/15/18 22:25 Immature Gran % (Auto) 0.1 % 11/15/18 22:25 Neut % (Auto) 84.3 % 11/15/18 22:25 Lymph % (Auto) 14.5 % 11/15/18 22:25 [place] % (Auto) 0.7 % 11/15/18 22:25 Eos % (Auto) 0.3 % 11/15/18 22:25 Baso % (Auto) 0.1 % 11/15/18 22:25 Immature Gran # (Auto) 0.01 K/uL (0.00-0.02) 11/15/18 22: Neut # (Auto) 6.38 K/uL (1.4-6.5) 11/15/18 22:25 Lymph # (Auto) 1.10 K/uL (1.2-3.4) L 11/15/18 22:25 [place] # (Auto) 0.05 K/uL (0.11-0.59) L 11/15/18 22:25 Eos # (Auto) 0.02 K/uL (0-0.5) 11/15/18 22:25 Baso # (Auto) 0.01 K/uL (0-0.2) 11/15/18 22:25 Sodium 132 mmol/L (136-145) L 11/16/18 08:49 Potassium 3.7 mmol/L (3.5-5.1) 11/16/18 08:49 Chloride 98 mmol/L (98-107) 11/16/18 08:49 Carbon Dioxide 30 mmol/L (21-32) 11/16/18 08:49 Anion Gap 4.0 (3-11) 11/16/18 08:49 BUN 16 mg/dl (7-18) 11/16/18 08:49 Creatinine 0.74 mg/dl (0.6-1.2) 11/16/18 08:49 Est Cr Clr Drug Dosing Not Reportable 11/16/18 08:49 Est GFR ( Amer) 99.9 11/16/18 08:49 Est GFR (Non-Af Amer) 86.2 11/16/18 08:49 BUN/Creatinine Ratio 21.1 (10-20) H 11/16/18 08:49 Glucose 102 mg/dl (70-99) H 11/16/18 08:49 POC Glucose 133 (70-99) H 11/16/18 07:46 Calcium 6.2 mg/dl (8.5-10.1) L 11/16/18 08:49 Total Bilirubin 0.3 mg/dl (0.2-1) 11/16/18 08:49 AST 33 U/L (15-37) 11/16/18 08:49 ALT 36 U/L (12-78) 11/16/18 08:49 Alkaline Phosphatase 127 U/L (45-117) H 11/16/18 08:49 Total Creatine Kinase 58 U/L (26-192) 11/15/18 22:25 Troponin I < 0.015 ng/ml (0-0.045) 11/15/18 22:25 Total Protein 6.6 gm/dl (6.4-8.2) 11/16/18 08:49 Albumin 3.1 gm/dl (3.4-5.0) L 11/16/18 08:49 Globulin 3.5 gm/dl (2.5-4.0) 11/16/18 08:49 Albumin/Globulin Ratio 0.9 (0.9-2) 11/16/18 08:49 TSH 1.760 uIu/ml (0.300-4.500) 11/15/18 22:25 Urine Color Yellow 11/15/18 22:30 Urine Appearance Clear (Clear) 11/15/18 22:30 Urine pH 7.0 (4.5-7.5) 11/15/18 22:30 Ur Specific [place] 1.015 (1.000-1.030) 11/15/18 22:30 Urine Protein 1+ (Negative) H 11/15/18 22:30 Urine Glucose (UA) Negative (Negative) 11/15/18 22:30 Urine Ketones Negative (Negative) 11/15/18 22:30 Urine Blood Negative (Negative) 11/15/18 22:30 Urine Nitrite Negative (Negative) 11/15/18 22:30 Urine Bilirubin Negative (Negative) 11/15/18 22:30 Urine Urobilinogen Negative (Negative) 11/15/18 22:30 Ur Leukocyte Esterase Trace (Negative) H 11/15/18 22:30 Urine WBC (Auto) 1-5 /hpf (0-5) 11/15/18 22:30 Urine RBC (Auto) 0-4 /hpf (0-4) 11/15/18 22:30 U Hyaline Cast (Auto) 0 /lpf (0-5) 11/15/18 22:30 U Epithel Cells (Auto) >30 /lpf (0-5) H 11/15/18 22:30 Urine Bacteria (Auto) Negative (Negative) 11/15/18 22:30 Medications Administered Current Inpatient Medications Acetaminophen (Tylenol) 650 mg PO Q4H PRN PRN Reason: pain/fever Stop: 12/16/18 00:55 Al Hydrox/Mg Hydrox/Simethicone (Maalox) 30 ml PO Q6H PRN PRN Reason: Dyspepsia Stop: 12/16/18 00:55 Fentanyl (Duragesic) 25 mcg TD Q72H [facility] Stop: 11/30/18 07:59 Last Admin: 11/16/18 09:01 Dose: 25 mcg Documented by: Heparin Sodium (Porcine) (Heparin Sodium (Porcine)) 5,000 units SQ Q12 [facility] Stop: 12/16/18 08:59 Last Admin: 11/17/18 08:43 Dose: 5,000 units Documented by: Potassium Chloride/Sodium Chloride (Normal Saline W/20 Meq Kcl) 20 meq in 1,000 mls @ 100 mls/hr IV .Q10H [facility] Stop: 12/16/18 18:14 Last Admin: 11/17/18 13:03 Dose: 100 mls/hr Documented by: Magnesium Hydroxide (Milk Of Magnesia) 30 ml PO Q6H PRN PRN Reason: Constipation Stop: 12/16/18 00:55 Miscellaneous (Fentanyl Patch Check Placement) 1 ea N/A QS [facility] Stop: 12/16/18 01:29 Last Admin: 11/17/18 15:29 Dose: 1 ea Documented by: [email or web address] (Fentanyl Patch Remove & Waste) 1 ea N/A Q72H [facility] Stop: 12/16/18 07:58 Last Admin: 11/16/18 08:58 Dose: 1 ea Documented by: Morphine Sulfate (Morphine Sulfate) 4 mg IV Q4H PRN PRN Reason: Pain Stop: 11/30/18 00:55 Ondansetron HCl (Zofran) 4 mg IV Q6H PRN PRN Reason: Nausea Stop: 12/16/18 00:55 Last Admin: 11/17/18 13:03 Dose: 4 mg Documented by: Oxycodone HCl (Roxicodone Immediate Rel) 5 - 10 mg PO Q4 PRN PRN Reason: Pain Stop: 11/30/18 00:55 Polyethylene Glycol (Miralax Powder Packet) 17 gm PO DAILY PRN PRN Reason: Constipation Stop: 12/16/18 00:55 Prochlorperazine (Compazine) 5 mg PO Q4H PRN PRN Reason: Nausea And Vomiting Stop: 12/17/18 13:44 Last Admin: 11/17/18 15:28 Dose: 5 mg Documented by: Zolpidem Tartrate (Ambien) 5 mg PO HS PRN PRN Reason: Sleep Stop: 12/16/18 00:55 Resident Activity Tracking Resident Involvement: Resident Care Provided Care Provided: Adult Hospital Medicine
[2018-11-18] MEDS: PROCHLORPERAZINE MALEATE 5 MG TAB PO PRN ×3 (03:32→15:57)
[2018-11-18 06:07] LABS: Basophils # (auto) 0.06 K/uL (0-0.2); Basophils % (auto) 1.2 %; Eosinophils # (auto) 0.02 K/uL (0-0.5); Eosinophils % (auto) 0.4 %; Hematocrit (blood only) 24.3 % (37-47); Hemoglobin 8.4 g/dL (12.0-16.0); Immature Granulocytes # (auto) 0.06 K/uL (0.00-0.02); Immature Granulocytes % (auto) 1.2 %; Lymphocytes # (auto) 1.29 K/uL (1.2-3.4); Lymphocytes % (auto) 26.7 %; Mean Corpuscular Hgb Conc 34.6 g/dL (32-36); Mean Corpuscular Volume 93.8 fL (80-100); Mean Platelet Volume 9.4 fL (7.4-10.4); Monocytes # (auto) 0.11 K/uL (0.11-0.59); Monocytes % (auto) 2.3 %; Neutrophils % (auto) 68.2 %; Platelet Count 192 K/uL (130-400); RDW Coefficient of Variation 14.5 % (11.5-14.5); RDW Standard Deviation 50.6 fL (36.4-46.3); Red Blood Count 2.59 M/uL (4.2-5.4); White Blood Count 4.84 K/uL (4.8-10.8)
[2018-11-18 06:47] LABS: RBC Morphology Unremarkable
[2018-11-18 06:50] LABS: BUN Creatinine Ratio 22.9 (10-20); Blood Urea Nitrogen 15 mg/dl (7-18); Calcium 7.1 mg/dl (8.5-10.1); Carbon Dioxide 27 mmol/L (21-32); Chloride 101 mmol/L (98-107); Est GFR (African American) 110.1; Glucose 86 mg/dl (70-99); Potassium 4.5 mmol/L (3.5-5.1); Sodium 135 mmol/L (136-145)
[2018-11-18] MEDS: CHECK FENTANYL PATCH PLACEMENT SCH ×3 (07:37→23:21)
[2018-11-18] MEDS: ONDANSETRON INJ 2 MG/ML 2 ML VIAL IV PRN (07:42)
[2018-11-18] MEDS: MAGNESIUM SULFATE / D5W 1 GM/100 ML BAG IV SCH ×3 (08:09→11:57)
[2018-11-18] MEDS: HEPARIN SOD 5,000 UNIT/0.5 ML VIAL SQ SCH ×2 (08:12→21:20)
[2018-11-18] MEDS: NSS + 20MEQ KCL 20 MEQ/1,000 ML BAG IV SCH ×2 (09:52→19:14)
--- NOTE | 2018-11-18 13:58 | Palliative Care Consultation ---
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 Holbrook. She lives alone at home and has been progressively getting weaker and having intractable nausea and vomiting. Three weeks ago she completed her last combination chemotherapy of Cisplatin and Etoposide. Additional PMH is LFT elevation and chronic anemia. Palliative Care was consulted to discuss goals of care and symptom management. -Discussed Palliative Care and how we can be involved with Goals of care, symptom and pain management. -Pain and symptom regimen discussed - please see below. 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 -Patient changed to DNR in the computer. -Patient still interested in pursuing aggressive chemotherapy to complete 6 cycles. Encouraged her to follow up with palliative outpatient. Palliative Performance Scale: 60% (2) Hypomagnesemia: -Managed by Hospitalists -Today, Mg+ 1.0 --> being replaced IV with 2 G (3) Intractable nausea and vomiting: -Pt currently receiving Zofran 4mg IV Q6 PRN and Compazine 5mg IV Q8 PRN -Pt has receiving 3 doses of Zofran over past 24 hours and 2 doses of Compazine over past 24 hours -Pt home regimen is Zofran 4mg po Q8 and Compazine 5mg po Q6 which she says works well. -I would suggest scheduling her Zofran as it appears it was hard to get her symptoms under control this morning. -Suggesting Zofran 4mg po Q8 and Compazine 5mg po Q6. Will discuss with Hospitalist. -Per discussion with Palliative MD, consider Haldol low dose should patient not respond to scheduled Zofran. (4) Chronic pain: Malignancy pain Patient currently uses Fentanyl 25 mcg TD Q72 Patient also has Morphine 4mg IV Q4 PRN and Oxy IR 5-10 mg po Q4 PRN. She has not used any dosing for breakthrough over past 24 hours Discussion with patient, indicates that pain is well controlled (5) Small cell lung carcinoma: -Patient managed by Dr. Holbrook -currently on dosing schedule 5/6 of Cisplatin/Etoposide -Last dose was 3 weeks ago -No Neutropenia noted Supervising Physician Co-Signing Physician Notes Chart reviewed, patient seen and examined-no friends or family at bedside. Patient slowly improving-states at home she does well if she alternates her scheduled Zofran was scheduled Compazine-she reports she does not get drowsy at all with the Compazine. PE: Appears comfortable, no acute distress HEENT: EOMI, normal hearing Respirations: Unlabored CV: Regular rate Abdomen: Soft, positive bowel sounds Neuro: Alert and oriented x4 Agree with above note, assessment and plan as per JOAQUIN Quintanilla -agree with scheduling both the Compazine and Zofran as this has been beneficial for the patient in the past-if nausea is controlled patient will be able to tolerate p.o. and be able to to be discharged home. Patient's goal is to complete her last cycle of chemo with further plans per oncology Will continue to follow and assist with care as needed History of Present Illness Reason for Consultation: goals of care Requesting Physician: Dr. 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 Holbrook. She lives alone at home and has been progressively getting weaker and having intractable nausea and vomiting. Three weeks ago she completed her last combination chemotherapy of Cisplatin and Etoposide. Additional PMH is LFT elevation and chronic anemia. Palliative Care was consulted to discuss goals of care and symptom management. Please see assessment and plan for further details. Thank you kindly for consulting the Palliative Care Team. We will follow through her hospitalization as needed. Allergies Allergy/AdvReac Type Severity Reaction Status Date / Time aspartame AdvReac Intermediate Headache Verified 11/16/18 15:20 epinephrine AdvReac Mild Palpitation Verified 08/11/18 21:35 s Home Medications Home Medications Medication Instructions Recorded Confirmed Type cholecalciferol (vitamin D3) 2,000 unit PO DAILY 07/18/18 11/15/18 History [Vitamin D3] multivitamin 1 tab PO DAILY 07/18/18 11/15/18 History lorazepam [Ativan] 1 mg PO HS PRN 08/11/18 11/15/18 History ondansetron HCl [Zofran] 8 mg PO Q8 PRN 08/11/18 11/15/18 History oxycodone 5 - 10 mg PO Q4 PRN 08/11/18 11/15/18 History prochlorperazine maleate 10 mg PO UD PRN 08/11/18 11/15/18 History [Compazine] loratadine [Allergy Relief 10 mg PO DAILY #30 tab 09/06/18 11/15/18 Rx (loratadine)] tramadol 50 mg PO Q4H PRN #30 tab 09/06/18 11/15/18 Rx fentanyl [Duragesic] 1 patch TOPICAL [id number] 11/15/18 11/15/18 History Patient History Medical History Leukocytosis Anemia Elevated LFTs Sacroiliac dysfunction Liver metastases (Acute) Small cell lung carcinoma (Acute) SIADH (syndrome of inappropriate ADH production) (Acute) Weakness (Acute) Lung mass (Acute) Family History Other Diabetes Social History Communication Ability: Effective Beliefs That Will Affect Care: None marital status: / Current Living Situation: Alone Feels Safe at Home: Yes Safety Concerns: Feels Safe At This Time Smoking Status: Former smoker Hx Alcohol Use: No Hx Substance Use: No Review of Systems General: Patient denies overall pain. See A/P for details HEENT: Pt denies SILVA, dizziness, (+) nausea, but no vomiting. No visual changes CV: Pt denies CP, palpitations, edema Resp: Pt denies SOB, breathing changes GI: Pt states appetite has improved. Pt denies bloating, distension, bowel changes : Pt denies urinary changes Skin: Pt denies skin changes Psych: Pt denies depressive symptoms, feels overall 'charged' and optomistic but realistic Physical Exam Vital Signs (Past 24 Hours): Last Vital Signs Temp 36.8 C 11/18/18 11:19 Pulse 101 H 11/18/18 11:19 Resp 20 11/18/18 11:19 BP 111/74 11/18/18 11:19 Pulse Ox 96 11/18/18 11:19 Constitutional: well developed, well nourished and + ill appearing Eyes: PERRL, conjunctivae normal, anicteric sclerae ENMT: external ear and nose normal, oropharynx normal Neck: trachea midline, no thyromegaly Respiratory: normal respiratory effort, lungs clear to auscultation Cardiovascular: Rate/Rhythm: regular rate and regular rhythm Heart Sounds: normal S1 and normal S2 Gastrointestinal (Abdomen): normal bowel sounds, soft, nontender, no hepatosplenomegaly Skin: + crusts (on head), + dry skin, + hair thinning and + patchy alopecia Psychiatric: Eye Contact: good eye contact Affect: + flat affect Insight: good insight Judgement: good judgement Time Spent Midlevel Total time spent 70 minutes with > 50% of that time spent reviewing the chart, assessing the patient, discussing GOALS OF CARE with the patient at the bedside.
--- NOTE | 2018-11-18 14:09 | Family Medicine Progress Note ---
Date of Service November 18, 2018 Assessment & Plan (1) Chemotherapy induced nausea and vomitin-year-old female was admitted on 16 November 2018 for nausea, vomiting, and weakness. Of note, she was diagnosed with metastatic (to liver and bone) small cell lung cancer in July 2018 and is presently on chemotherapy. Chemotherapy-induced nausea and vomiting: Patient is s/p multiple cycles of chemotherapy the past few days prior to admit. X-ray of chest and abdomen noted no acute cardiopulmonary abnormality or evidence of bowel obstruction (see full report). Afebrile and still borderline tachycardic. Oncology consulted, see related note. They generally recommend supportive management and will continue to follow. On as needed Zofran and Compazine. On maintenance IV fluids. Anemia: Admit hemoglobin 9.6 (comparisons between 10-11), down to 8.4. Is presently on chemotherapy. Monitoring. Hypocalcemia: Admit calcium 6.2, improved to 7.1. On chemotherapy. Monitoring. Hypomagnesemia: Mg as low as 1.0. Replaced, will recheck. Protein malnutrition: Hypoalbuminemia. Nutrition consult (see full report). Recommended supplementation with boost. Ongoing medical issues: - SIADH: On admit, Na 132. Given 2L IVF, improved. Monitoring. - Chronic pain: On scheduled fentanyl patch as well as oxycodone and morphine (both prn). - Generalized weakness: Multifactorial due to malignancy and chemotherapy. Code status: Full code. Diet: Regular. DVT prophy: Heparin 5000 units every 12 hours. PT/OT: Ordered. PT cleared patient. Disbo: Changed to full admit on medsurg. - Given the severity of her disease, consulted palliative care so they can begin discussions of overall goals of care. (2) Anemia: (3) Hypocalcemia: (4) Protein malnutrition: (5) SIADH (syndrome of inappropriate ADH production): (6) Small cell lung carcinoma: (7) Chronic pain: (8) Weakness: (9) Hypomagnesemia: Supervising Physician Co-Signing Physician Notes Patient seen and examined with the resident. Agree with history, physical exam, assessment and plan with the following updates/corrections: 63yo F w/ stage IV small cell lung cancer on chemotherapy who presented with nausea and vomiting. Today, she continues to have nausea and trouble eating. No emesis. Feels these symptoms might be somewhat better after starting the compazine yesterday. The smell of food is causes some nausea. 1) Small cell lung cancer - Progressing despite treatment. Just had her 5th of 6 treatments. Will likely reduce next dose per oncology notes. Palliative care consult for general goals of care and symptom discussion. 2) Anemia - Baseline hgb ~10, currently 8.4. Gradually trending down. No signs of bleeding. Likely chronic disease and/or bone marrow suppresion from chemo. Monitor. Subjective Found patient resting comfortably earlier this morning. She says that she had a special order sandwich made which she was able to keep down around dinnertime. She notes a more severe episode of nausea this morning which she attributes to missing a as needed dose of her Zofran. She remains frustrated that she is hungry but still has difficulty keeping down enough food. Otherwise she notes no particular acute concerns. Physical Exam Vital Signs (Past 24 Hours): Last Vital Signs Temp 36.8 C 11/18/18 11:19 Pulse 101 H 11/18/18 11:19 Resp 20 11/18/18 11:19 BP 111/74 11/18/18 11:19 Pulse Ox 96 11/18/18 11:19 Physical Exam: General Appearance: Awake, alert & oriented, comfortable in general, NAD. CV: +S1S2 RRR, no murmur. Pulm: Clear to auscultation throughout. Abdomen: +BS, soft, non-tender, non-distended. Extremities: No pedal edema or calf tenderness. Moving all extremities naturally and easily. Neuro: No gross neuro deficits. Psych: Seems to have a bit more of an upbeat mood but is still frustrated about her nausea. Results & Data Laboratory Results Laboratory Results WBC 4.84 K/uL (4.8-10.8) 11/18/18 05:32 RBC 2.59 M/uL (4.2-5.4) L 11/18/18 05:32 Hgb 8.4 g/dL (12.0-16.0) L 11/18/18 05:32 Hct 24.3 % (37-47) L 11/18/18 05:32 MCV 93.8 fL (80-100) 11/18/18 05:32 MCH 32.4 pg (25-34) 11/18/18 05:32 MCHC 34.6 g/dL (32-36) 11/18/18 05:32 RDW Std Deviation 50.6 fL (36.4-46.3) H 11/18/18 05:32 RDW Coeff of [place] 14.5 % (11.5-14.5) 11/18/18 05:32 Plt Count 192 K/uL (130-400) 11/18/18 05:32 MPV 9.4 fL (7.4-10.4) 11/18/18 05:32 Immature Gran % (Auto) 1.2 % 11/18/18 05:32 Neut % (Auto) 68.2 % 11/18/18 05:32 Lymph % (Auto) 26.7 % 11/18/18 05:32 [place] % (Auto) 2.3 % 11/18/18 05:32 Eos % (Auto) 0.4 % 11/18/18 05:32 Baso % (Auto) 1.2 % 11/18/18 05:32 Immature Gran # (Auto) 0.06 K/uL (0.00-0.02) H 11/18/18 05:32 Neut # (Auto) 3.30 K/uL (1.4-6.5) 11/18/18 05:32 Lymph # (Auto) 1.29 K/uL (1.2-3.4) 11/18/18 05:32 Mora # (Auto) 0.11 K/uL (0.11-0.59) 11/18/18 05:32 Eos # (Auto) 0.02 K/uL (0-0.5) 11/18/18 05:32 Baso # (Auto) 0.06 K/uL (0-0.2) 11/18/18 05:32 RBC Morphology Unremarkable 11/18/18 05:32 Sodium 135 mmol/L (136-145) L 11/18/18 05:32 Potassium 4.5 mmol/L (3.5-5.1) D 11/18/18 05:32 Chloride 101 mmol/L (98-107) 11/18/18 05:32 Carbon Dioxide 27 mmol/L (21-32) 11/18/18 05:32 Anion Gap 8.0 (3-11) 11/18/18 05:32 BUN 15 mg/dl (7-18) 11/18/18 05:32 Creatinine 0.64 mg/dl (0.6-1.2) 11/18/18 05:32 Est Cr Clr Drug Dosing Not Reportable 11/18/18 05:32 Est GFR ( Amer) 110.1 11/18/18 05:32 Est GFR (Non-Af Amer) 95.0 11/18/18 05:32 BUN/Creatinine Ratio 22.9 (10-20) H 11/18/18 05:32 Glucose 86 mg/dl (70-99) 11/18/18 05:32 POC Glucose 133 (70-99) H 11/16/18 07:46 Calcium 7.1 mg/dl (8.5-10.1) L 11/18/18 05:32 Magnesium 1.0 mg/dl (1.8-2.4) L 11/18/18 05:32 Total Bilirubin 0.3 mg/dl (0.2-1) 11/16/18 08:49 AST 33 U/L (15-37) 11/16/18 08:49 ALT 36 U/L (12-78) 11/16/18 08:49 Alkaline Phosphatase 127 U/L (45-117) H 11/16/18 08:49 Total Creatine Kinase 58 U/L (26-192) 11/15/18 22:25 Troponin I < 0.015 ng/ml (0-0.045) 11/15/18 22:25 Total Protein 6.6 gm/dl (6.4-8.2) 11/16/18 08:49 Albumin 3.1 gm/dl (3.4-5.0) L 11/16/18 08:49 Globulin 3.5 gm/dl (2.5-4.0) 11/16/18 08:49 Albumin/Globulin Ratio 0.9 (0.9-2) 11/16/18 08:49 TSH 1.760 uIu/ml (0.300-4.500) 11/15/18 22:25 Urine Color Yellow 11/15/18 22:30 Urine Appearance Clear (Clear) 11/15/18 22:30 Urine pH 7.0 (4.5-7.5) 11/15/18 22:30 Ur Specific [place] 1.015 (1.000-1.030) 11/15/18 22:30 Urine Protein 1+ (Negative) H 11/15/18 22:30 Urine Glucose (UA) Negative (Negative) 11/15/18 22:30 Urine Ketones Negative (Negative) 11/15/18 22:30 Urine Blood Negative (Negative) 11/15/18 22:30 Urine Nitrite Negative (Negative) 11/15/18 22:30 Urine Bilirubin Negative (Negative) 11/15/18 22:30 Urine Urobilinogen Negative (Negative) 11/15/18 22:30 Ur Leukocyte Esterase Trace (Negative) H 11/15/18 22:30 Urine WBC (Auto) 1-5 /hpf (0-5) 11/15/18 22:30 Urine RBC (Auto) 0-4 /hpf (0-4) 11/15/18 22:30 U Hyaline Cast (Auto) 0 /lpf (0-5) 11/15/18 22:30 U Epithel Cells (Auto) >30 /lpf (0-5) H 11/15/18 22:30 Urine Bacteria (Auto) Negative (Negative) 11/15/18 22:30 Medications Administered Current Inpatient Medications Acetaminophen (Tylenol) 650 mg PO Q4H PRN PRN Reason: pain/fever Stop: 12/16/18 00:55 Al Hydrox/Mg Hydrox/Simethicone (Maalox) 30 ml PO Q6H PRN PRN Reason: Dyspepsia Stop: 12/16/18 00:55 Fentanyl (Duragesic) 25 mcg TD Q72H FATOUM[place] Stop: 11/30/18 07:59 Last Admin: 11/16/18 09:01 Dose: 25 mcg Documented by: Heparin Sodium (Porcine) (Heparin Sodium (Porcine)) 5,000 units SQ Q12 FATOUMATA Stop: 12/16/18 08:59 Last Admin: 11/18/18 08:12 Dose: 5,000 units Documented by: Potassium Chloride/Sodium Chloride (Normal Saline W/20 Meq Kcl) 20 meq in 1,000 mls @ 100 mls/hr IV .Q10H FATOUMATA Stop: 12/16/18 18:14 Last Admin: 11/18/18 09:52 Dose: 100 mls/hr Documented by: Magnesium Hydroxide (Milk Of Magnesia) 30 ml PO Q6H PRN PRN Reason: Constipation Stop: 12/16/18 00:55 Miscellaneous (Fentanyl Patch Check Placement) 1 ea N/A QS FATOUM[place] Stop: 12/16/18 01:29 Last Admin: 11/18/18 07:37 Dose: 1 ea Documented by: Miscellaneous (Fentanyl Patch Remove & Waste) 1 ea N/A Q72H [place]OUM[place] Stop: 12/16/18 07:58 Last Admin: 11/16/18 08:58 Dose: 1 ea Documented by: Morphine Sulfate (Morphine Sulfate) 4 mg IV Q4H PRN PRN Reason: Pain Stop: 11/30/18 00:55 Ondansetron HCl (Zofran) 4 mg IV Q6H PRN PRN Reason: Nausea Stop: 12/16/18 00:55 Last Admin: 11/18/18 07:42 Dose: 4 mg Documented by: Oxycodone HCl (Roxicodone Immediate Rel) 5 - 10 mg PO Q4 PRN PRN Reason: Pain Stop: 11/30/18 00:55 Polyethylene Glycol (Miralax Powder Packet) 17 gm PO DAILY PRN PRN Reason: Constipation Stop: 12/16/18 00:55 Prochlorperazine (Compazine) 5 mg PO Q4H PRN PRN Reason: Nausea And Vomiting Stop: 12/17/18 13:44 Last Admin: 11/18/18 11:57 Dose: 5 mg Documented by: Zolpidem Tartrate (Ambien) 5 mg PO HS PRN PRN Reason: Sleep Stop: 12/16/18 00:55 Resident Activity Tracking Resident Involvement: Resident Care Provided Care Provided: Adult Hospital Medicine
--- NOTE | 2018-11-18 18:27 | Discharge Summary ---
Date of Service November 20, 2018 Admission HPI Per Admitting Provider 63 y/o F Hx small cell lung cancer - liver and bone mets, chronic LFT elevations, SIADH, anemia. Presents with nausea, vomiting and weakness. The pt received chemotherapy this week on Sat, Sat, Sat with Etoposide and Cisplatinum. Her symptoms have progressed since completing the chemo. She was at [facility] earlier in the day and was treated with IVF and antiemetics and released. Her symptoms recurred shortly after discharge. She does not have fevers, rigors. diarrhea, SOB or dysuria. 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 ENT: No erythema or exudates, no thrush Eyes: HERO, EOMI Head and neck: Normocephalic, atraumatic, No JVD, neck is supple, alopecia noted. Chest/heart: Nontender, S1,2, RRR, no murmurs, no gallops Lungs: CTAB, no wheezing or crackles Abdomen: Nontender, nondistended, BS+ Neuro: AAO x 3, speech is clear, no unilateral weakness or loss of sensation, coordination intact Musculoskeletal: No joint inflammation, muscle tenderness, FROM Skin: No acute rashes or ulcers Extremities: No clubbing, cyanosis, edema Principal Diagnosis Chemotherapy-induced nausea and vomiting Discharge Exam General Appearance: Awake, alert & oriented, comfortable in general, NAD. CV: +S1S2 RRR, no murmur. Pulm: Clear to auscultation throughout. Abdomen: +BS, soft, non-tender, non-distended. Extremities: No pedal edema or calf tenderness. Moving all extremities naturally and easily. Neuro: No gross neuro deficits. Discharge Data Allergies Allergy/AdvReac Type Severity Reaction Status Date / Time aspartame AdvReac Intermediate Headache Verified 11/16/18 15:20 epinephrine AdvReac Mild Palpitation Verified 08/11/18 21:35 s Consultations Oncology consultation plan on 17 November 2018 PLAN: I visited with Oralia at bedside this morning. The patient is well known to [facility], currently under my care for lung cancer. She is in the midst of her fifth out of 6 cycles of cisplatin and etoposide. For the most part, she has done relatively well, had been able to manage her symptomatology in the past. I suspect as with many patients when treatment progresses forward, these adverse effects emerge. She feels much better today. She is not started solid foods, however, and would give her another 24 hours to make sure she is tolerating her diet. I agree with medical management otherwise which is largely supportive. There is no evidence of emerging infection or other issues to prolong her stay. Continue pain management. Encourage p.o. intake moving forward. Oralia is scheduled to return prior to her sixth and final cycle and most likely we will reduce her dose. Mid treatment scans show a mixed picture with most of the visceral disease showing response; however, skeletal disease appears to have emerged despite normal bone scan at diagnosis back in July. We will discuss further with Oralia upon followup. Palliative care consultation plan on 18 November 2018 -Discussed Palliative Care and how we can be involved with Goals of care, symptom and pain management. -Pain and symptom regimen discussed - please see below. -Patient and I discussed code status and her wishes for blower mechanic heroic intervention -Patient indicated that if her heart would stop and breathing would cease, she would not want resuscitated. -Patient changed to DNR in the computer. -Patient still interested in pursuing aggressive chemotherapy to complete 6 cycles. Encouraged her to follow up with palliative outpatient. Palliative Performance Scale: 60% Procedures Performed X-ray abdomen 2 view with PA chest on 15 November 2018 IMPRESSION: 1. No acute cardiopulmonary abnormality. 2. Nonobstructive bowel gas pattern. 3. Diffuse sclerotic metastasis redemonstrated. Hospital Course (1) Chemotherapy induced nausea and vomitin-year-old female was admitted on 16 November 2018 for nausea, vomiting, and weakness. Of note, she was diagnosed with metastatic (to liver and bone) small cell lung cancer in July 2018 and is presently on chemotherapy. Chemotherapy-induced nausea and vomiting: Patient is s/p multiple cycles of chemotherapy prior to admit. X-ray of chest and abdomen noted no acute cardiopulmonary abnormality or evidence of bowel obstruction (see full report). Afebrile and still borderline tachycardic. Oncology consulted, see related note. They generally recommend supportive management and will continue to follow. On as needed Zofran and Compazine (same as her home regimen). Patients appetite and N/V improved during her hospital stay, enough so that she was comfortable going home. Anemia: Admit hemoglobin 9.6 (comparisons between 10-11), down then stabilized around 8.5. Is presently on chemotherapy. Recommended close follow-up for this. Hypocalcemia: Admit calcium 6.2. Replaced and improved. Hypomagnesemia: Mg as low as 1.0. Replaced and improved. Protein malnutrition: Hypoalbuminemia. Nutrition consult (see full report). Recommended supplementation with boost, Ensure, and/or [place] Instant Breakfast supplementation throughout the day. Ongoing medical issues: - SIADH: On admit, Na 132. Given 2L IVF, improved. - Chronic pain: On scheduled fentanyl patch as well as oxycodone and morphine (both prn). - Generalized weakness: Multifactorial due to malignancy and chemotherapy. Disposition: Patient was seen by the palliative care team as an inpatient. After discussions with them, the patient wishes to be DO NOT RESUSCITATE do going forwards in the event of a re-hospitalization. She agrees to work with them as an outpatient as needed. (2) Anemia: (3) Hypocalcemia: (4) Protein malnutrition: (5) SIADH (syndrome of inappropriate ADH production): (6) Small cell lung carcinoma: (7) Chronic pain: (8) Weakness: (9) Hypomagnesemia: Total Time Total Time Spent Total Time Spent (In Minutes): > 30 min Discharge Plan Discharge Items Patient Disposition: Home - Self-Care Reason For Visit: INTRACTABLE NAUSEA AND VOMITING Discharge Diagnosis: Chemotherapy-induced nausea vomiting Discharge Goals: Decrease discomfort, Improve function and Increase independence Activity: Per 'Additional Instructions' section Non-emergency contact: Oncologist Call non-emergency contact if: you have any medication questions Follow-up/Referrals: Latha Warren DO [Primary Care Provider] - 11/24/18 9:40 am (Please, follow up with Dr. Warren on SaturdayNovember 24 at 9:40 am. *If you need to change this appointment, call her office at [phone].) Sameer Holbrook DO [Physician] - (Please, follow up with Dr. Holbrook at [facility]. *The nurse will call you with appointment details. If you have any questions, call the office at [phone].) Diet: Regular Addtl Provider Instructions: You were admitted to the hospital on November 16, 2018 for severe nausea, vomiting, as well as weakness. While in the hospital we evaluated the following issues: Chemotherapy-induced nausea and vomiting: We consulted your oncologist regarding your ongoing nausea and vomiting. He recommended supportive care and to continue to use anti-emetic (anti-vomiting) medication such as Zofran and Compazine. We also provided you some IV fluids to keep you well-hydrated. - It continues to be important that you stay well-hydrated. Even if you are not hungry, it is very important that you try to drink some sort of sugar- containing drink such as watered-down juice or Pedialyte. Weakness: This is likely the result of both your body fighting the cancer as well as the chemotherapy. You are doing an excellent job of trying to take in as many nutritious calories as you can. Usually the best sources of nutrition in these cases are from drinks such as Ensure, boost, and/or [place] Instant Breakfast. Please try to consume at least three of these drinks per day along with normal meals if possible. Anemia (low blood counts): On the routine check of your lab work while in the hospital, some of your blood counts (hemoglobin) were a bit low. They were not in dangerous levels, however it is important that you follow-up with your oncologist for close monitoring of this. Please continue to follow-up with your oncologist for ongoing cancer care per your treatment plan with them. Please return to the nearest emergency department if you once again develop any severe nausea, vomiting, new ongoing diarrhea, any pain associated with these things, or with any other emergent concerns. Prescriptions: Continued multivitamin Tablet 1 tab PO DAILY RF: 0 cholecalciferol (vitamin D3) [Vitamin D3] 2,000 unit Tablet 2,000 unit PO DAILY RF: 0 ondansetron HCl [Zofran] 8 mg tablet 8 mg PO Q8 PRN (Reason: Nausea) RF: 0 prochlorperazine maleate [Compazine] 10 mg tablet 10 mg PO UD PRN (Reason: Nausea) RF: 0 lorazepam [Ativan] 1 mg tablet 1 mg PO HS PRN (Reason: anxiety/sleep) RF: 0 oxycodone 10 mg tablet 5 - 10 mg PO Q4 PRN (Reason: Pain) RF: 0 loratadine [Allergy Relief (loratadine)] 10 mg Tablet 10 mg PO DAILY Qty: 30 RF: 0 tramadol 50 mg Tablet 50 mg PO Q4H PRN (Reason: pain) Qty: 30 RF: 0 fentanyl [Duragesic] 25 mcg/hr patch 72 hour 1 patch topical [id number] RF: 0 Stand-Alone Forms: [facility] Discharge Orders: Discharge Order (Routine); Ordered 11/20/18 Ordered By: Je El Admission Data Admit Date/Time: 11/18/18 11:09 Attending Provider: Rasta Wood Admit Provider: Ambrocio Michael Primary Care Provider: Latha Warren Other Providers: Ambrocio Michael ; Sameer Holbrook V ; Sharonda Peñaloza Service: Oncology Other Interventions: Discharge Summary Assessment (RN) Last Done: 11/20/18 12:32 Supervising Physician Co-Signing Physician Notes Patient seen and examined with the resident. Agree with history, physical exam, assessment and plan with the following updates/corrections: 63yo F w/ stage IV small cell lung cancer on chemotherapy who presented with nausea and vomiting. Today, she improved nausea. No emesis. Ready to go home. 1) Small cell lung cancer - Progressing despite treatment. Just had her 5th of 6 treatments. Will likely reduce next dose per oncology notes. Palliative care consulted and recs appreciated. On discharge, she was tolerating orals well. 2) Anemia - Baseline hgb ~10, currently 8.5. Rebounding slightly. No signs of bleeding. Likely bone marrow suppresion from chemo. Will follow up with outpatient oncology. Resident Activity Tracking Resident Involvement: Resident Care Provided Care Provided: Adult Hospital Medicine
[2018-11-18] MEDS: ONDANSETRON INJ 2 MG/ML 2 ML VIAL IV SCH (21:23)
--- NOTE | 2018-11-19 00:06 | Emergency Department Note ---
Entered by Mikaela Gold acting as a scribe for Valentin Chinchilla MD History of Present Illness General Chief complaint: Weakness Stated complaint: WEAK, FAINT, CAN'T EAT- CHEMO 3 DAYS AGO Time Seen by Provider: 11/15/18 21:58 Source: patient Mode of arrival: ambulatory History of Present Illness Provider complaint: Weakness Onset (ago): day(s) 2 Location: head, abdomen, upper extremity and lower extremity Severity: moderate Pain Consistency: + constant Maximum Pain Intensity: 5 Exacerbated By: + medication Associated symptoms: + denies other symptoms and + loss of appetite Patient is a 63 year old cancer patient presenting to the ED with weakness beginning x2 days ago. Patient states she received chemotherapy for lung cancer every Saturday, Saturday and since July 2018. She notes that since receiving the last chemo treatment x2 days ago, she has had loss of appetite and general weakness. Patient notes she feels hungry, but has not been able to drink or eat. She notes she feels like she is going to have LOC. She notes that she was at [facility] since onset began, and was given fluids which did not improve sx. Patient expresses that she does not feel safe at home by herself with the weakness. She denies any nausea, vomiting, diarrhea, abd pain, or any other complaints or concerns at this time. Home Medications Home Medications Medication Instructions Recorded Confirmed Type cholecalciferol (vitamin D3) 2,000 unit PO DAILY 07/18/18 11/15/18 History [Vitamin D3] multivitamin 1 tab PO DAILY 07/18/18 11/15/18 History lorazepam [Ativan] 1 mg PO HS PRN 08/11/18 11/15/18 History ondansetron HCl [Zofran] 8 mg PO Q8 PRN 08/11/18 11/15/18 History oxycodone 5 - 10 mg PO Q4 PRN 08/11/18 11/15/18 History prochlorperazine maleate 10 mg PO UD PRN 08/11/18 11/15/18 History [Compazine] loratadine [Allergy Relief 10 mg PO DAILY #30 tab 09/06/18 11/15/18 Rx (loratadine)] tramadol 50 mg PO Q4H PRN #30 tab 09/06/18 11/15/18 Rx fentanyl [Duragesic] 1 patch TOPICAL [id number] 11/15/18 11/15/18 History Allergies Allergy/AdvReac Type Severity Reaction Status Date / Time aspartame AdvReac Intermediate Headache Verified 11/16/18 15:20 epinephrine AdvReac Mild Palpitation Verified 08/11/18 21:35 s Past Med/Surg History Medical History Leukocytosis Anemia Elevated LFTs Sacroiliac dysfunction Liver metastases (Acute) Small cell lung carcinoma (Acute) SIADH (syndrome of inappropriate ADH production) (Acute) Weakness (Acute) Lung mass (Acute) Family History Other Diabetes Social History Communication Ability: Effective Beliefs That Will Affect Care: None marital status: / Current Living Situation: Alone Feels Safe at Home: Yes Safety Concerns: Feels Safe At This Time Smoking Status: Former smoker Hx Alcohol Use: No Hx Substance Use: No Review of Systems See HPI for pertinent positives & negatives. and A total of 10 systems reviewed and were otherwise negative Physical Exam Vital Signs Vital Signs - 24 hr 11/18/18 03:19 11/18/18 07:16 11/18/18 11:19 Temperature 37.0 C 36.7 C 36.8 C Temperature Source Oral Oral Oral Pulse Rate [Left Finger] 107 H 102 H 101 H Respiratory Rate 16 20 20 Respiratory Effort / Characteristics Respiratory Depth Respiratory Pattern Blood Pressure [Right Arm] 111/75 139/89 111/74 Blood Pressure Mean [Right Arm] 87 105 86 Blood Pressure Position [Right Arm] Lying Lying Lying Pulse Oximetry 97 96 96 Oxygen Delivery Method Room Air Room Air Room Air 11/18/18 15:26 11/18/18 19:28 11/18/18 22:53 Temperature 37.0 C 37.0 C 37.0 C Temperature Source Oral Oral Oral Pulse Rate [Left Finger] 98 H 100 H 109 H Respiratory Rate 18 18 18 Respiratory Effort / Characteristics Non-Labored Respiratory Depth Normal Respiratory Pattern Regular Blood Pressure [Right Arm] 114/79 113/76 107/72 Blood Pressure Mean [Right Arm] 90 88 83 Blood Pressure Position [Right Arm] Lying Lying Lying Pulse Oximetry 96 97 97 Oxygen Delivery Method Room Air Room Air Room Air 11/18/18 23:23 Temperature Temperature Source Pulse Rate [Left Finger] Respiratory Rate Respiratory Effort / Characteristics Respiratory Depth Respiratory Pattern Blood Pressure [Right Arm] Blood Pressure Mean [Right Arm] Blood Pressure Position [Right Arm] Pulse Oximetry Oxygen Delivery Method Room Air GENERAL: Patient is Cachetic in appearance. HEAD: Normocephalic atraumatic EYES: Ocular movements intact pupils equal and react to light OROPHARYNX mucous membranes are moist no exudates present no erythema or edema present NECK: Supple no nuchal rigidity CHEST: Good equal expansion LUNGS: Clear and equal to auscultation CARDIAC: Normal S1 and S2 ABDOMEN: Soft nontender no guarding BACK: No CVA tenderness EXTREMITIES: No pain upon palpation normal muscle strength in all groups no clubbing cyanosis or edema NEURO: Patient is following commands is answering questions appropriately. Alert and oriented x3 Cranial Nerves 2-12 grossly intact Course 2204: Past medical records reviewed. The patient was evaluated in room C04, and a complete history and physical examination were performed. 2314: Updated patient on results. Plan discussed with Dr. Michael. 2349: Discussed case with Dr. Michael, who will evaluate patient. Administered Medications Fentanyl (Duragesic) 25 mcg TD Q72H [facility] Stop: 11/30/18 07:59 Last Admin: 11/16/18 09:01 Dose: 25 mcg Documented by: [id number] Heparin Sodium (Porcine) (Heparin Sodium (Porcine)) 5,000 units SQ Q12 [facility] Stop: 12/16/18 08:59 Last Admin: 11/18/18 21:20 Dose: 5,000 units Documented by: [id number] Cosigned by: [id number] Admin: 11/18/18 08:12 Dose: 5,000 units Documented by: [id number] Cosigned by: [id number] Admin: 11/17/18 20:47 Dose: 5,000 units Documented by: [id number] Cosigned by: [id number] Admin: 11/17/18 08:43 Dose: 5,000 units Documented by: [id number] Cosigned by: [id number] Admin: 11/16/18 20:30 Dose: 5,000 units Documented by: [id number] Cosigned by: [id number] Admin: 11/16/18 08:58 Dose: 5,000 units Documented by: [id number] Cosigned by: [id number] Potassium Chloride/Sodium Chloride (Normal Saline W/20 Meq Kcl) 20 meq in 1,000 mls @ 100 mls/hr IV .Q10H [facility] Stop: 12/16/18 18:14 Last Admin: 11/18/18 19:14 Dose: 100 mls/hr Documented by: [id number] Infusion: 11/18/18 19:14 Dose: 100 mls/hr Documented by: [id number] Admin: 11/18/18 09:52 Dose: 100 mls/hr Documented by: [id number] Infusion: 11/18/18 09:40 Dose: 0 mls/hr Documented by: [id number] Admin: 11/17/18 23:29 Dose: 100 mls/hr Documented by: [id number] Infusion: 11/17/18 23:03 Dose: 100 mls/hr Documented by: [id number] Admin: 11/17/18 13:03 Dose: 100 mls/hr Documented by: [id number] Infusion: 11/17/18 13:03 Dose: 100 mls/hr Documented by: [id number] Admin: 11/17/18 04:40 Dose: 100 mls/hr Documented by: [id number] Infusion: 11/17/18 04:40 Dose: 100 mls/hr Documented by: [id number] Admin: 11/16/18 18:47 Dose: 100 mls/hr Documented by: [id number] Miscellaneous (Fentanyl Patch Check Placement) 1 ea N/A QS [facility] Stop: 12/16/18 01:29 Last Admin: 11/18/18 23:21 Dose: 1 ea Documented by: [id number] Admin: 11/18/18 15:53 Dose: 1 ea Documented by: [id number] Admin: 11/18/18 07:37 Dose: 1 ea Documented by: [id number] Admin: 11/17/18 23:30 Dose: 1 ea Documented by: [id number] Admin: 11/17/18 15:29 Dose: 1 ea Documented by: [id number] Admin: 11/17/18 08:42 Dose: 1 ea Documented by: [id number] Admin: 11/16/18 23:14 Dose: 1 ea Documented by: [id number] Admin: 11/16/18 15:56 Dose: 1 ea Documented by: [id number] Admin: 11/16/18 01:26 Dose: 1 ea Documented by: [id number] Miscellaneous (Fentanyl Patch Remove & Waste) 1 ea N/A Q72H [facility] Stop: 12/16/18 07:58 Last Admin: 11/16/18 08:58 Dose: 1 ea Documented by: [id number] Cosigned by: [id number] Ondansetron HCl (Zofran) 4 mg IV Q8H [facility] Stop: 12/18/18 21:59 Last Admin: 11/18/18 21:23 Dose: 4 mg Documented by: [id number] Prochlorperazine (Compazine) 5 mg PO Q6H PRN PRN Reason: Nausea And Vomiting Stop: 12/17/18 13:30 Last Admin: 11/18/18 15:57 Dose: 5 mg Documented by: [id number] Discontinued Medications Sodium Chloride (Nss 1000ml) 1,000 mls @ 999 mls/hr IV .Q1H1M [facility] Stop: 11/15/18 23:15 Last Infusion: 11/15/18 23:56 Dose: 0 mls/hr Documented by: [id number] Admin: 11/15/18 22:22 Dose: 999 mls/hr Documented by: [id number] Potassium Chloride/Dextrose/Sod Cl (D5nss + 20meq Kcl) 20 meq in 1,000 mls @ 150 mls/hr IV .Q6H40M [facility] Stop: 11/16/18 14:19 Last Infusion: 11/16/18 17:37 Dose: 0 mls/hr Documented by: [id number] Admin: 11/16/18 08:58 Dose: 150 mls/hr Documented by: [id number] Infusion: 11/16/18 08:02 Dose: 150 mls/hr Documented by: [id number] Admin: 11/16/18 01:21 Dose: 150 mls/hr Documented by: [id number] Magnesium Sulfate/Dextrose (Magnesium Sulfate / D5w) 1 gm in 100 mls @ 100 ml s/hr IV Q1H [facility] Stop: 11/18/18 10:29 Last Infusion: 11/18/18 13:00 Dose: 0 mls/hr Documented by: [id number] Admin: 11/18/18 11:57 Dose: 100 mls/hr Documented by: [id number] Infusion: 11/18/18 11:00 Dose: 0 mls/hr Documented by: [id number] Admin: 11/18/18 09:52 Dose: 100 mls/hr Documented by: [id number] Infusion: 11/18/18 09:10 Dose: 0 mls/hr Documented by: [id number] Admin: 11/18/18 08:09 Dose: 100 mls/hr Documented by: [id number] Metoclopramide HCl (Reglan) 10 mg IV NOW STA Stop: 11/15/18 23:26 Last Admin: 11/15/18 23:58 Dose: 10 mg Documented by: [id number] Ondansetron HCl (Zofran) 4 mg IV NOW STA Stop: 11/15/18 23:24 Last Admin: 11/15/18 23:58 Dose: 4 mg Documented by: [id number] Ondansetron HCl (Zofran) 4 mg IV Q6H PRN PRN Reason: Nausea Stop: 12/16/18 00:55 Last Admin: 11/18/18 07:42 Dose: 4 mg Documented by: [id number] Admin: 11/17/18 18:25 Dose: 4 mg Documented by: [id number] Admin: 11/17/18 13:03 Dose: 4 mg Documented by: [id number] Admin: 11/17/18 08:40 Dose: 4 mg Documented by: [id number] Admin: 11/17/18 04:54 Dose: 4 mg Documented by: [id number] Admin: 11/16/18 22:12 Dose: 4 mg Documented by: [id number] Admin: 11/16/18 15:54 Dose: 4 mg Documented by: [id number] Ondansetron HCl (Zofran) 4 mg IV ONCE ONE Stop: 11/17/18 08:56 Last Admin: 11/17/18 08:59 Dose: Not Given Documented by: [id number] Prochlorperazine (Compazine) 5 mg PO Q4H PRN PRN Reason: Nausea And Vomiting Stop: 12/17/18 13:44 Last Admin: 11/18/18 11:57 Dose: 5 mg Documented by: [id number] Admin: 11/18/18 03:32 Dose: 5 mg Documented by: [id number] Admin: 11/17/18 20:54 Dose: 5 mg Documented by: [id number] Admin: 11/17/18 15:28 Dose: 5 mg Documented by: [id number] Medical Decision Making Differential Diagnosis Differential diagnosis: Etiologies such as metabolic, infection, hypo/hyperglycemia, electrolyte abnormalities, cardiac sources, intracerebral event, toxicologic, neurologic, as well as others were entertained. Medical Records Attestation: I reviewed the patient's medical records. Home Medications Current Medication List: was personally reviewed by me Laboratory Data Attestation: I reviewed the patient's lab results. Result diagrams: 11/18/18 05:32 11/18/18 05:32 Lab Results 11/15/18 11/15/18 11/15/18 Range/Units 22:25 22:25 22:30 WBC 7.57 (4.8-10.8) K/uL RBC 3.02 L (4.2-5.4) M/uL Hgb 9.6 L (12.0-16.0) g/dL Hct 28.0 L (37-47) % MCV 92.7 (80-100) fL MCH 31.8 (25-34) pg MCHC 34.3 (32-36) g/dL RDW Std Deviation 50.8 H (36.4-46.3) fL RDW Coeff of Tesfaye 14.9 H (11.5-14.5) % Plt Count 303 (130-400) K/uL MPV 9.0 (7.4-10.4) fL Immature Gran % (Auto) 0.1 % Neut % (Auto) 84.3 % Lymph % (Auto) 14.5 % [place] % (Auto) 0.7 % Eos % (Auto) 0.3 % Baso % (Auto) 0.1 % Immature Gran # (Auto) 0.01 (0.00-0.02) K/uL Neut # (Auto) 6.38 (1.4-6.5) K/uL Lymph # (Auto) 1.10 L (1.2-3.4) K/uL [place] # (Auto) 0.05 L (0.11-0.59) K/uL Eos # (Auto) 0.02 (0-0.5) K/uL Baso # (Auto) 0.01 (0-0.2) K/uL RBC Morphology Sodium 132 L (136-145) mmol/L Potassium 3.8 (3.5-5.1) mmol/L Chloride 95 L (98-107) mmol/L Carbon Dioxide 27 (21-32) mmol/L Anion Gap 9.0 (3-11) BUN 23 H (7-18) mg/dl Creatinine 0.90 (0.6-1.2) mg/dl Est Cr Clr Drug Dosing Not Reportable Est GFR ( Amer) 78.9 Est GFR (Non-Af Amer) 68.0 BUN/Creatinine Ratio 26.0 H (10-20) Glucose 121 H (70-99) mg/dl POC Glucose (70-99) Calcium 6.4 L (8.5-10.1) mg/dl Magnesium (1.8-2.4) mg/dl Total Bilirubin 0.3 (0.2-1) mg/dl AST 34 (15-37) U/L ALT 39 (12-78) U/L Alkaline Phosphatase 120 H (45-117) U/L Total Creatine Kinase 58 (26-192) U/L Troponin I < 0.015 (0-0.045) ng/ml Total Protein 6.8 (6.4-8.2) gm/dl Albumin 3.2 L (3.4-5.0) gm/dl Globulin 3.6 (2.5-4.0) gm/dl Albumin/Globulin Ratio 0.9 (0.9-2) TSH 1.760 (0.300-4.500) uIu/ml Urine Color Yellow Urine Appearance Clear (Clear) Urine pH 7.0 (4.5-7.5) Ur Specific [place] 1.015 (1.000-1.030) Urine Protein 1+ H (Negative) Urine Glucose (UA) Negative (Negative) Urine Ketones Negative (Negative) Urine Blood Negative (Negative) Urine Nitrite Negative (Negative) Urine Bilirubin Negative (Negative) Urine Urobilinogen Negative (Negative) Ur Leukocyte Esterase Trace H (Negative) Urine WBC (Auto) 1-5 (0-5) /hpf Urine RBC (Auto) 0-4 (0-4) /hpf U Hyaline Cast (Auto) 0 (0-5) /lpf U Epithel Cells (Auto) >30 H (0-5) /lpf Urine Bacteria (Auto) Negative (Negative) 11/16/18 11/16/18 11/18/18 Range/Units 07:46 08:49 05:32 WBC 4.84 (4.8-10.8) K/uL RBC 2.59 L (4.2-5.4) M/uL Hgb 8.4 L (12.0-16.0) g/dL Hct 24.3 L (37-47) % MCV 93.8 (80-100) fL MCH 32.4 (25-34) pg MCHC 34.6 (32-36) g/dL RDW Std Deviation 50.6 H (36.4-46.3) fL RDW Coeff of Tesfaye 14.5 (11.5-14.5) % Plt Count 192 (130-400) K/uL MPV 9.4 (7.4-10.4) fL Immature Gran % (Auto) 1.2 % Neut % (Auto) 68.2 % Lymph % (Auto) 26.7 % Lassen % (Auto) 2.3 % Eos % (Auto) 0.4 % Baso % (Auto) 1.2 % Immature Gran # (Auto) 0.06 H (0.00-0.02) K/uL Neut # (Auto) 3.30 (1.4-6.5) K/uL Lymph # (Auto) 1.29 (1.2-3.4) K/uL [place] # (Auto) 0.11 (0.11-0.59) K/uL Eos # (Auto) 0.02 (0-0.5) K/uL Baso # (Auto) 0.06 (0-0.2) K/uL RBC Morphology Unremarkable Sodium 132 L (136-145) mmol/L Potassium 3.7 (3.5-5.1) mmol/L Chloride 98 (98-107) mmol/L Carbon Dioxide 30 (21-32) mmol/L Anion Gap 4.0 (3-11) BUN 16 (7-18) mg/dl Creatinine 0.74 (0.6-1.2) mg/dl Est Cr Clr Drug Dosing Not Reportable Est GFR ( Amer) 99.9 Est GFR (Non-Af Amer) 86.2 BUN/Creatinine Ratio 21.1 H (10-20) Glucose 102 H (70-99) mg/dl POC Glucose 133 H (70-99) Calcium 6.2 L (8.5-10.1) mg/dl Magnesium (1.8-2.4) mg/dl Total Bilirubin 0.3 (0.2-1) mg/dl AST 33 (15-37) U/L ALT 36 (12-78) U/L Alkaline Phosphatase 127 H (45-117) U/L Total Creatine Kinase (26-192) U/L Troponin I (0-0.045) ng/ml Total Protein 6.6 (6.4-8.2) gm/dl Albumin 3.1 L (3.4-5.0) gm/dl Globulin 3.5 (2.5-4.0) gm/dl Albumin/Globulin Ratio 0.9 (0.9-2) TSH (0.300-4.500) uIu/ml Urine Color Urine Appearance (Clear) Urine pH (4.5-7.5) Ur Specific [place] (1.000-1.030) Urine Protein (Negative) Urine Glucose (UA) (Negative) Urine Ketones (Negative) Urine Blood (Negative) Urine Nitrite (Negative) Urine Bilirubin (Negative) Urine Urobilinogen (Negative) Ur Leukocyte Esterase (Negative) Urine WBC (Auto) (0-5) /hpf Urine RBC (Auto) (0-4) /hpf U Hyaline Cast (Auto) (0-5) /lpf U Epithel Cells (Auto) (0-5) /lpf Urine Bacteria (Auto) (Negative) 11/18/18 Range/Units 05:32 WBC (4.8-10.8) K/uL RBC (4.2-5.4) M/uL Hgb (12.0-16.0) g/dL Hct (37-47) % MCV (80-100) fL MCH (25-34) pg MCHC (32-36) g/dL RDW Std Deviation (36.4-46.3) fL RDW Coeff of Tesfaye (11.5-14.5) % Plt Count (130-400) K/uL MPV (7.4-10.4) fL Immature Gran % (Auto) % Neut % (Auto) % Lymph % (Auto) % Lassen % (Auto) % Eos % (Auto) % Baso % (Auto) % Immature Gran # (Auto) (0.00-0.02) K/uL Neut # (Auto) (1.4-6.5) K/uL Lymph # (Auto) (1.2-3.4) K/uL [place] # (Auto) (0.11-0.59) K/uL Eos # (Auto) (0-0.5) K/uL Baso # (Auto) (0-0.2) K/uL RBC Morphology Sodium 135 L (136-145) mmol/L Potassium 4.5 D (3.5-5.1) mmol/L Chloride 101 (98-107) mmol/L Carbon Dioxide 27 (21-32) mmol/L Anion Gap 8.0 (3-11) BUN 15 (7-18) mg/dl Creatinine 0.64 (0.6-1.2) mg/dl Est Cr Clr Drug Dosing Not Reportable Est GFR ( Amer) 110.1 Est GFR (Non-Af Amer) 95.0 BUN/Creatinine Ratio 22.9 H (10-20) Glucose 86 (70-99) mg/dl POC Glucose (70-99) Calcium 7.1 L (8.5-10.1) mg/dl Magnesium 1.0 L (1.8-2.4) mg/dl Total Bilirubin (0.2-1) mg/dl AST (15-37) U/L ALT (12-78) U/L Alkaline Phosphatase (45-117) U/L Total Creatine Kinase (26-192) U/L Troponin I (0-0.045) ng/ml Total Protein (6.4-8.2) gm/dl Albumin (3.4-5.0) gm/dl Globulin (2.5-4.0) gm/dl Albumin/Globulin Ratio (0.9-2) TSH (0.300-4.500) uIu/ml Urine Color Urine Appearance (Clear) Urine pH (4.5-7.5) Ur Specific [place] (1.000-1.030) Urine Protein (Negative) Urine Glucose (UA) (Negative) Urine Ketones (Negative) Urine Blood (Negative) Urine Nitrite (Negative) Urine Bilirubin (Negative) Urine Urobilinogen (Negative) Ur Leukocyte Esterase (Negative) Urine WBC (Auto) (0-5) /hpf Urine RBC (Auto) (0-4) /hpf U Hyaline Cast (Auto) (0-5) /lpf U Epithel Cells (Auto) (0-5) /lpf Urine Bacteria (Auto) (Negative) Imaging Data Attestation: I personally reviewed and interpreted this imaging study as follows: My Impression: 1 view of chest was interpreted by me: appears to be multiple nodule in right lung. No evidence of congestion, pneumothorax, or pneumonia. 3 view of ABD was interpreted by me: no evidence fracture or dislocation ECG Data Attestation: I personally reviewed and interpreted this ECG as follows: Indication: weakness Rate (beats per minute): 101 Rhythm: sinus tachycardia Findings: no ST depression and no ST elevation Blood Pressure Blood Pressure Findings: Normal blood pressure MDM Narrative This is a 63-year-old female who presents emergency department complaining of chemotherapy-induced nausea and vomiting. The patient reports being discharged from [facility] today however is still complaining of severe nausea. IV was established here in the emergency department she was given Zofran as well as Reglan. The patient's hemoglobin is 8.5. I did discuss the case with the hospitalist service who agreed to admit the patient. Patient was in agreement with the treatment plan. Impression & Plan Anemia, Chemotherapy induced nausea and vomiting Discharge Plan Visit Data *Final* Discharge Date/Time: 11/16/18 00:46 Chief Complaint: Weakness Stated Complaint: WEAK, FAINT, CAN'T EAT- CHEMO 3 DAYS AGO ED Provider: Valentin Chinchilla Discharge Problem: Anemia, Chemotherapy induced nausea and vomiting Patient Disposition: Admitted As Inpatient Discharge Instructions Interventions: ED Discharge Assessment Last Done: 11/16/18 00:46 The scribe's documentation has been prepared under my direction and personally reviewed by me in its entirety. I confirm that the note above accurately reflects all work, treatment, procedures, and medical decision making performed by me.
[2018-11-19] MEDS: NSS + 20MEQ KCL 20 MEQ/1,000 ML BAG IV SCH (05:35)
[2018-11-19] MEDS: ONDANSETRON INJ 2 MG/ML 2 ML VIAL IV SCH ×3 (05:35→20:53)
[2018-11-19 06:48] LABS: Basophils # (auto) 0.04 K/uL (0-0.2); Basophils % (auto) 0.9 %; Eosinophils # (auto) 0.01 K/uL (0-0.5); Eosinophils % (auto) 0.2 %; Hemoglobin 8.1 g/dL (12.0-16.0); Immature Granulocytes # (auto) 0.03 K/uL (0.00-0.02); Immature Granulocytes % (auto) 0.7 %; Lymphocytes # (auto) 1.23 K/uL (1.2-3.4); Lymphocytes % (auto) 28.6 %; Mean Corpuscular Hgb Conc 33.8 g/dL (32-36); Mean Corpuscular Volume 93.8 fL (80-100); Mean Platelet Volume 9.7 fL (7.4-10.4); Monocytes # (auto) 0.11 K/uL (0.11-0.59); Monocytes % (auto) 2.6 %; Neutrophils # (auto) 2.88 K/uL (1.4-6.5); Platelet Count 165 K/uL (130-400); RDW Coefficient of Variation 14.7 % (11.5-14.5); RDW Standard Deviation 50.4 fL (36.4-46.3); Red Blood Count 2.56 M/uL (4.2-5.4)
[2018-11-19 07:22] LABS: BUN Creatinine Ratio 25.8 (10-20); Blood Urea Nitrogen 17 mg/dl (7-18); Calcium 6.7 mg/dl (8.5-10.1); Carbon Dioxide 24 mmol/L (21-32); Chloride 102 mmol/L (98-107); Est GFR (African American) 107.9; Est GFR (Non-African American) 93.1; Glucose 95 mg/dl (70-99); Magnesium 1.2 mg/dl (1.8-2.4); Potassium 4.6 mmol/L (3.5-5.1); Sodium 133 mmol/L (136-145)
[2018-11-19 08:24] LABS: RBC Morphology Unremarkable
[2018-11-19] MEDS: HEPARIN SOD 5,000 UNIT/0.5 ML VIAL SQ SCH ×2 (08:38→20:53)
[2018-11-19] MEDS: fentaNYL 25 MCG/HR TDSY TD SCH (08:40)
[2018-11-19] MEDS: CHECK FENTANYL PATCH PLACEMENT SCH ×3 (08:42→23:33)
[2018-11-19] MEDS ORDERED: CALCIUM GLUCONATE 10% 1,000 MG in SODIUM CHLORIDE 0.9% 50 ML IV ONE (09:15)
[2018-11-19] MEDS: MAGNESIUM SULFATE / D5W 1 GM/100 ML BAG IV SCH ×3 (09:25→11:42)
--- NOTE | 2018-11-19 13:17 | Family Medicine Progress Note ---
Date of Service November 19, 2018 Assessment & Plan (1) Chemotherapy induced nausea and vomitin-year-old female was admitted on 16 November 2018 for nausea, vomiting, and weakness. Of note, she was diagnosed with metastatic (to liver and bone) small cell lung cancer in July 2018 and is presently on chemotherapy. Chemotherapy-induced nausea and vomiting: Patient is s/p multiple cycles of chemotherapy prior to admit. X-ray of chest and abdomen noted no acute cardiopulmonary abnormality or evidence of bowel obstruction (see full report). Afebrile and still borderline tachycardic. Oncology consulted, see related note. They generally recommend supportive management and will continue to follow. On as needed Zofran and Compazine. Patients appetite and N/V are improving a bit. - Stopped maintenance IVF to see if she will drink enough to self-hydrate prior to d/c home. Anemia: Admit hemoglobin 9.6 (comparisons between 10-11), down to 8.1. Is presently on chemotherapy. Monitoring. Hypocalcemia: Admit calcium 6.2. Replacing, monitoring. Hypomagnesemia: Mg as low as 1.0. Ongoing replacement and monitoring. Protein malnutrition: Hypoalbuminemia. Nutrition consult (see full report). Recommended supplementation with boost. Ongoing medical issues: - SIADH: On admit, Na 132. Given 2L IVF, improved. Monitoring. - Chronic pain: On scheduled fentanyl patch as well as oxycodone and morphine (both prn). - Generalized weakness: Multifactorial due to malignancy and chemotherapy. Code status: DO NOT RESUSCITATE (changed per palliative care discussions). Diet: Regular. DVT prophy: Heparin 5000 units every 12 hours. PT/OT: Ordered. PT cleared patient. Disbo: Admitted to [facility]. See related palliative care notes with plans for outpatient care. (2) Anemia: (3) Hypocalcemia: (4) Protein malnutrition: (5) SIADH (syndrome of inappropriate ADH production): (6) Small cell lung carcinoma: (7) Chronic pain: (8) Weakness: (9) Hypomagnesemia: Supervising Physician Co-Signing Physician Notes Patient seen and examined with the resident. Agree with history, physical exam, assessment and plan with the following updates/corrections: 63yo F w/ stage IV small cell lung cancer on chemotherapy who presented with nausea and vomiting. Today, she improved nausea. No emesis. 1) Small cell lung cancer - Progressing despite treatment. Just had her 5th of 6 treatments. Will likely reduce next dose per oncology notes. Palliative care consulted and recs appreciated. 2) Anemia - Baseline hgb ~10, currently 8.1. Gradually trending down. No signs of bleeding. Likely chronic disease and/or bone marrow suppresion from chemo. Monitor. Will consider transfusion if <8 tomorrow. Subjective Found patient resting comfortably earlier this morning. She says that her p.o. intake does continue to improve but is not quite ideal yet. She says she has not had any loose stools for over 24 hours now. She denies any pain or other a cute concerns. When asked if she felt like she was ready to go home, she stated she was not quite sure the nausea was fully controlled. Physical Exam Vital Signs (Past 24 Hours): Last Vital Signs Temp 37.0 C 11/19/18 07:24 Pulse 99 H 11/19/18 07:24 Resp 14 11/19/18 07:24 BP 106/73 11/19/18 07:24 Pulse Ox 98 11/19/18 07:24 Physical Exam: General Appearance: Awake, alert & oriented, comfortable in general, NAD. CV: +S1S2 RRR, no murmur. Pulm: Clear to auscultation throughout. Abdomen: +BS, soft, non-tender, non-distended. Extremities: No pedal edema or calf tenderness. Moving all extremities naturally and easily. Neuro: No gross neuro deficits. Psych: A bit more energy and improved mood compared to past two days, but ongoing frustration. Results & Data Laboratory Results Laboratory Results WBC 4.30 K/uL (4.8-10.8) L 11/19/18 06:21 RBC 2.56 M/uL (4.2-5.4) L 11/19/18 06:21 Hgb 8.1 g/dL (12.0-16.0) L 11/19/18 06:21 Hct 24.0 % (37-47) L 11/19/18 06:21 MCV 93.8 fL (80-100) 11/19/18 06:21 MCH 31.6 pg (25-34) 11/19/18 06:21 MCHC 33.8 g/dL (32-36) 11/19/18 06:21 RDW Std Deviation 50.4 fL (36.4-46.3) H 11/19/18 06:21 RDW Coeff of [place] 14.7 % (11.5-14.5) H 11/19/18 06:21 Plt Count 165 K/uL (130-400) 11/19/18 06:21 MPV 9.7 fL (7.4-10.4) 11/19/18 06:21 Immature Gran % (Auto) 0.7 % 11/19/18 06:21 Neut % (Auto) 67.0 % 11/19/18 06:21 Lymph % (Auto) 28.6 % 11/19/18 06:21 [place] % (Auto) 2.6 % 11/19/18 06:21 Eos % (Auto) 0.2 % 11/19/18 06:21 Baso % (Auto) 0.9 % 11/19/18 06:21 Immature Gran # (Auto) 0.03 K/uL (0.00-0.02) H 11/19/18 06:21 Neut # (Auto) 2.88 K/uL (1.4-6.5) 11/19/18 06:21 Lymph # (Auto) 1.23 K/uL (1.2-3.4) 11/19/18 06:21 [place] # (Auto) 0.11 K/uL (0.11-0.59) 11/19/18 06:21 Eos # (Auto) 0.01 K/uL (0-0.5) 11/19/18 06:21 Baso # (Auto) 0.04 K/uL (0-0.2) 11/19/18 06:21 RBC Morphology Unremarkable 11/19/18 06:21 Sodium 133 mmol/L (136-145) L 11/19/18 06:21 Potassium 4.6 mmol/L (3.5-5.1) 11/19/18 06:21 Chloride 102 mmol/L (98-107) 11/19/18 06:21 Carbon Dioxide 24 mmol/L (21-32) 11/19/18 06:21 Anion Gap 7.0 (3-11) 11/19/18 06:21 BUN 17 mg/dl (7-18) 11/19/18 06:21 Creatinine 0.68 mg/dl (0.6-1.2) 11/19/18 06:21 Est Cr Clr Drug Dosing Not Reportable 11/19/18 06:21 Est GFR ( Amer) 107.9 11/19/18 06:21 Est GFR (Non-Af Amer) 93.1 11/19/18 06:21 BUN/Creatinine Ratio 25.8 (10-20) H 11/19/18 06:21 Glucose 95 mg/dl (70-99) 11/19/18 06:21 POC Glucose 133 (70-99) H 11/16/18 07:46 Calcium 6.7 mg/dl (8.5-10.1) L 11/19/18 06:21 Magnesium 1.2 mg/dl (1.8-2.4) L 11/19/18 06:21 Total Bilirubin 0.3 mg/dl (0.2-1) 11/16/18 08:49 AST 33 U/L (15-37) 11/16/18 08:49 ALT 36 U/L (12-78) 11/16/18 08:49 Alkaline Phosphatase 127 U/L (45-117) H 11/16/18 08:49 Total Creatine Kinase 58 U/L (26-192) 11/15/18 22:25 Troponin I < 0.015 ng/ml (0-0.045) 11/15/18 22:25 Total Protein 6.6 gm/dl (6.4-8.2) 11/16/18 08:49 Albumin 3.1 gm/dl (3.4-5.0) L 11/16/18 08:49 Globulin 3.5 gm/dl (2.5-4.0) 11/16/18 08:49 Albumin/Globulin Ratio 0.9 (0.9-2) 11/16/18 08:49 TSH 1.760 uIu/ml (0.300-4.500) 11/15/18 22:25 Urine Color Yellow 11/15/18 22:30 Urine Appearance Clear (Clear) 11/15/18 22:30 Urine pH 7.0 (4.5-7.5) 11/15/18 22:30 Ur Specific [place] 1.015 (1.000-1.030) 11/15/18 22:30 Urine Protein 1+ (Negative) H 11/15/18 22:30 Urine Glucose (UA) Negative (Negative) 11/15/18 22:30 Urine Ketones Negative (Negative) 11/15/18 22:30 Urine Blood Negative (Negative) 11/15/18 22:30 Urine Nitrite Negative (Negative) 11/15/18 22:30 Urine Bilirubin Negative (Negative) 11/15/18 22:30 Urine Urobilinogen Negative (Negative) 11/15/18 22:30 Ur Leukocyte Esterase Trace (Negative) H 11/15/18 22:30 Urine WBC (Auto) 1-5 /hpf (0-5) 11/15/18 22:30 Urine RBC (Auto) 0-4 /hpf (0-4) 11/15/18 22:30 U Hyaline Cast (Auto) 0 /lpf (0-5) 11/15/18 22:30 U Epithel Cells (Auto) >30 /lpf (0-5) H 11/15/18 22:30 Urine Bacteria (Auto) Negative (Negative) 11/15/18 22:30 Medications Administered Current Inpatient Medications Acetaminophen (Tylenol) 650 mg PO Q4H PRN PRN Reason: pain/fever Stop: 12/16/18 00:55 Al Hydrox/Mg Hydrox/Simethicone (Maalox) 30 ml PO Q6H PRN PRN Reason: Dyspepsia Stop: 12/16/18 00:55 Fentanyl (Duragesic) 25 mcg TD Q72H [facility] Stop: 11/30/18 07:59 Last Admin: 11/19/18 08:40 Dose: 25 mcg Documented by: Heparin Sodium (Porcine) (Heparin Sodium (Porcine)) 5,000 units SQ Q12 [facility] Stop: 12/16/18 08:59 Last Admin: 11/19/18 08:38 Dose: 5,000 units Documented by: Potassium Chloride/Sodium Chloride (Normal Saline W/20 Meq Kcl) 20 meq in 1,000 mls @ 100 mls/hr IV .Q10H [facility] Stop: 12/16/18 18:14 Last Admin: 11/19/18 05:35 Dose: 100 mls/hr Documented by: Magnesium Hydroxide (Milk Of Magnesia) 30 ml PO Q6H PRN PRN Reason: Constipation Stop: 12/16/18 00:55 Miscellaneous (Fentanyl Patch Check Placement) 1 ea N/A QS [facility] Stop: 12/16/18 01:29 Last Admin: 11/19/18 08:42 Dose: 1 ea Documented by: Miscellaneous (Fentanyl Patch Remove & Waste) 1 ea N/A Q72H [facility] Stop: 12/16/18 07:58 Last Admin: 11/19/18 08:42 Dose: 1 ea Documented by: Morphine Sulfate (Morphine Sulfate) 4 mg IV Q4H PRN PRN Reason: Pain Stop: 11/30/18 00:55 Ondansetron HCl (Zofran) 4 mg IV Q8H [facility] Stop: 12/18/18 21:59 Last Admin: 11/19/18 05:35 Dose: 4 mg Documented by: Oxycodone HCl (Roxicodone Immediate Rel) 5 - 10 mg PO Q4 PRN PRN Reason: Pain Stop: 11/30/18 00:55 Polyethylene Glycol (Miralax Powder Packet) 17 gm PO DAILY PRN PRN Reason: Constipation Stop: 12/16/18 00:55 Prochlorperazine (Compazine) 5 mg PO Q6H PRN PRN Reason: Nausea And Vomiting Stop: 12/17/18 13:30 Last Admin: 11/18/18 15:57 Dose: 5 mg Documented by: Zolpidem Tartrate (Ambien) 5 mg PO HS PRN PRN Reason: Sleep Stop: 12/16/18 00:55 Resident Activity Tracking Resident Involvement: Resident Care Provided Care Provided: Adult Hospital Medicine (1) Anemia Anemia type: unspecified type Qualified Code(s): D64.9 - Anemia, unspecified
[2018-11-19 15:35] LABS: BUN Creatinine Ratio 22.9 (10-20); Blood Urea Nitrogen 17 mg/dl (7-18); Carbon Dioxide 28 mmol/L (21-32); Chloride 99 mmol/L (98-107); Est GFR (African American) 96.8; Est GFR (Non-African American) 83.5; Glucose 105 mg/dl (70-99); Magnesium 2.2 mg/dl (1.8-2.4); Potassium 4.2 mmol/L (3.5-5.1); Sodium 134 mmol/L (136-145)
[2018-11-20] MEDS: ONDANSETRON INJ 2 MG/ML 2 ML VIAL IV SCH (05:58)
[2018-11-20 07:33] LABS: Basophils # (auto) 0.08 K/uL (0-0.2); Basophils % (auto) 2.4 %; Eosinophils # (auto) 0.01 K/uL (0-0.5); Eosinophils % (auto) 0.3 %; Hematocrit (blood only) 25.6 % (37-47); Hemoglobin 8.5 g/dL (12.0-16.0); Immature Granulocytes # (auto) 0.01 K/uL (0.00-0.02); Immature Granulocytes % (auto) 0.3 %; Lymphocytes # (auto) 0.96 K/uL (1.2-3.4); Lymphocytes % (auto) 28.9 %; Mean Corpuscular Hgb Conc 33.2 g/dL (32-36); Mean Corpuscular Volume 94.5 fL (80-100); Mean Platelet Volume 9.6 fL (7.4-10.4); Monocytes # (auto) 0.35 K/uL (0.11-0.59); Monocytes % (auto) 10.5 %; Neutrophils # (auto) 1.91 K/uL (1.4-6.5); Neutrophils % (auto) 57.6 %; Platelet Count 155 K/uL (130-400); RDW Coefficient of Variation 14.6 % (11.5-14.5); RDW Standard Deviation 50.3 fL (36.4-46.3); Red Blood Count 2.71 M/uL (4.2-5.4); White Blood Count 3.32 K/uL (4.8-10.8)
[2018-11-20] MEDS: CHECK FENTANYL PATCH PLACEMENT SCH (08:00)
[2018-11-20] MEDS: HEPARIN SOD 5,000 UNIT/0.5 ML VIAL SQ SCH (08:00)
[2018-11-20 08:04] LABS: RBC Morphology Unremarkable
[2018-11-20 08:16] LABS: BUN Creatinine Ratio 26.8 (10-20); Blood Urea Nitrogen 20 mg/dl (7-18); Calcium 7.7 mg/dl (8.5-10.1); Carbon Dioxide 27 mmol/L (21-32); Chloride 100 mmol/L (98-107); Est GFR (African American) 98.3; Est GFR (Non-African American) 84.8; Glucose 86 mg/dl (70-99); Magnesium 1.6 mg/dl (1.8-2.4); Potassium 4.9 mmol/L (3.5-5.1); Sodium 133 mmol/L (136-145)
[2018-11-20] MEDS ORDERED: MAGNESIUM SULFATE / D5W 1 GM/100 ML BAG IV ONE (08:45)
[2018-11-20] MEDS ORDERED: CALCIUM GLUCONATE 10% 1,000 MG in SODIUM CHLORIDE 0.9% 50 ML IV ONE (08:45)
[2018-11-20] MEDS: PROCHLORPERAZINE MALEATE 5 MG TAB PO PRN (14:09)
== END 2018-11-20 15:05 | disposition home or self-care (01) | DRG 812 ==
LOC: 4E 21:49 → ED 21:49 → SUATTDRO 11-16 00:17 → 4E 11-16 00:46

== ENCOUNTER 2019-01-28 13:40 | Inpatient (IN) ==
[2019-01-28] MEDS ORDERED: MoRPHine SULFATE 4 MG/ML 1 ML CARP\\VIAL IV PRN ×2 (15:30→23:56)
[2019-01-28] MEDS ORDERED: ONDANSETRON INJ 2 MG/ML 2 ML VIAL IV PRN (15:30)
[2019-01-28] MEDS ORDERED: SODIUM CHLORIDE 0.9% 1000ML 1,000 ML IV ONE ×2 (15:30→19:44)
[2019-01-28 15:54] LABS: Appearance Urine Clear (Clear); Bilirubin Urine Negative (Negative); Color Urine Yellow; Glucose Urine UA Negative (Negative); Ketones Urine Negative (Negative); Leukocyte Esterase Urine Negative (Negative); Nitrite Urine Negative (Negative); Protein Urine Negative (Negative); Specific Gravity Urine 1.018 (1.000-1.030); Urobilinogen Urine Negative (Negative)
[2019-01-28 16:55] LABS: Basophils # (auto) 0.03 K/uL (0-0.2); Basophils % (auto) 0.3 %; Eosinophils # (auto) 0.32 K/uL (0-0.5); Eosinophils % (auto) 3.4 %; Hemoglobin 9.1 g/dL (12.0-16.0); Immature Granulocytes # (auto) 0.07 K/uL (0.00-0.02); Immature Granulocytes % (auto) 0.7 %; Lymphocytes # (auto) 0.41 K/uL (1.2-3.4); Lymphocytes % (auto) 4.4 %; Mean Corpuscular Hgb Conc 33.7 g/dL (32-36); Mean Corpuscular Volume 94.7 fL (80-100); Mean Platelet Volume 9.3 fL (7.4-10.4); Monocytes % (auto) 11.7 %; Neutrophils # (auto) 7.48 K/uL (1.4-6.5); Neutrophils % (auto) 79.5 %; Platelet Count 158 K/uL (130-400); RDW Coefficient of Variation 15.8 % (11.5-14.5); RDW Standard Deviation 55.4 fL (36.4-46.3); Red Blood Count 2.85 M/uL (4.2-5.4); White Blood Count 9.41 K/uL (4.8-10.8)
[2019-01-28 17:12] LABS: BUN Creatinine Ratio 32.2 (10-20); Calcium 8.1 mg/dl (8.5-10.1); Est GFR (African American) 112.4; Potassium 4.4 mmol/L (3.5-5.1)
[2019-01-28 17:15] LABS: Albumin Globulin Ratio 0.9 (0.9-2); Bilirubin,Total 0.4 mg/dl (0.2-1); Globulin 3.4 gm/dl (2.5-4.0); Total Protein 6.4 gm/dl (6.4-8.2)
[2019-01-28] MEDS ORDERED: IOVERSOL 100ml IV PRN (17:52)
--- NOTE | 2019-01-28 18:01 | CT Scan Report ---
CT abd pelvis IV con only CLINICAL HISTORY: Hepatocellular carcinoma. Right-sided abdominal and back pain. COMPARISON STUDY: 01/08/2019 TECHNIQUE: The patient was scanned in a dynamic helical fashion during intravenous administration of 94 cc Optiray 320. A dose lowering technique was utilized adhering to the principles of ALARA. CT DOSE: 346.29 mGy.cm FINDINGS: Lower chest: There is a small pericardial effusion. There are bilateral breast implants. The right im plant is densely calcified. Liver: There are innumerable space-occupying hepatic masses, consistent with extensive metastatic dis ease. The liver is mildly enlarged measuring 22 cm. Gallbladder: Contracted. Tiny gallstone. Spleen: Normal in size and attenuation. Pancreas: Unremarkable. Adrenal glands: Unremarkable. Kidneys: Is a 14 mm right renal cyst. No solid renal masses are visualized. There is no hydronephrosi s. Bowel: There are no transition zones indicate bowel obstruction. There is no acute diverticulitis. Th ere are no findings to indicate acute appendicitis. Peritoneum: There is no intraperitoneal free air or abdominal ascites. There is a fat-containing umbi lical hernia. Vasculature: The abdominal aorta is normal in course and caliber. Adenopathy: None. Pelvic viscera: The bladder, and pelvic viscera are unremarkable. Skeletal structures: There are widespread osteoblastic skeletal metastasis. IMPRESSION: 1. Extensive hepatic metastatic disease similar to the prior study. Mild hepatomegaly 2. Cholelithiasis. Contracted gallbladder 3. Widespread osteoblastic skeletal metastasis 4. No evidence of bowel obstruction. No evidence of free air Electronically signed by: Benji Hubbard M.D. 01/28/2019 5:59 PM
[2019-01-28] MEDS ORDERED: ONDANSETRON INJ 2 MG/ML 2 ML VIAL IV STA (18:11)
[2019-01-28] MEDS ORDERED: METOCLOPRAMIDE HCL INJ 5 MG/ML 2 ML VIAL IV STA (18:32)
[2019-01-28] MEDS ORDERED: KETOROLAC 30 MG/ML VIAL IV STA (18:32)
[2019-01-28] MEDS ORDERED: OXYCODONE HCL IR 5 MG TAB (IMMEDIATE RELEASE) PO STA (20:23)
--- NOTE | 2019-01-28 21:42 | Emergency Department Note ---
Entered by Soren Frias acting as a scribe for Andre Cummins MD History of Present Illness General Chief complaint: Pain (Generalized) Stated complaint: PAIN ALL OVER,BACK AND STOMACH PAIN Time Seen by Provider: 01/28/19 15:11 Source: patient History of Present Illness Onset (ago): month(s) 1 Location: back Pain Consistency: + other (worsening) Maximum Pain Intensity: 4 Relieved By: + none Associated symptoms: + denies other symptoms (vaginal pain), + nausea/vomiting (positive intermittent nausea, negative vomiting) and + other (right-sided abdominal pain); no chest pain and no fever/chills The patient is a 63 white F w/ PMHx of hypomagnesemia, hypocalcemia, and liver cancer who presents to the ED w/ CC of worsening back pain beginning 1 month ago. She notes that she also has some mild right-sided abdominal pain. She states that her current symptoms started after she was diagnosed with liver cancer. She notes that her oncologist is Dr. Holbrook. She denies having a port or PICC line in place. She states that she has been on chemotherapy and radiation every week for the last month. She notes that she has been on fentanyl and oxycodone for pain management. She states that she is currently experiencing intermittent nausea. She adds that she took Zofran prior to leaving for the ED. She denies currently experiencing a fever, chills, chest pain, and vaginal pain. She also denies a history of kidney stones. Home Medications Home Medications Medication Instructions Recorded Confirmed Type cholecalciferol (vitamin D3) 2,000 unit PO QAM 07/18/18 01/28/19 History [Vitamin D3] multivitamin 1 tab PO QAM 07/18/18 01/28/19 History lorazepam [Ativan] 1 mg PO PM PRN 08/11/18 01/28/19 History ondansetron HCl [Zofran] 8 mg PO Q8 PRN 08/11/18 01/28/19 History oxycodone 5 - 10 mg PO Q4 PRN 08/11/18 01/28/19 History prochlorperazine maleate 10 mg PO UD PRN 08/11/18 01/28/19 History [Compazine] tramadol 50 mg PO Q4H PRN #30 tab 09/06/18 01/28/19 Rx fentanyl [Duragesic] 1 patch TOPICAL [id number] 11/15/18 01/28/19 History loratadine [Allergy Relief 10 mg PO QAM 01/28/19 01/28/19 History (loratadine)] Allergies Allergy/AdvReac Type Severity Reaction Status Date / Time aspartame AdvReac Intermediate Headache Verified 01/28/19 15:21 epinephrine AdvReac Mild Palpitation Verified 01/28/19 15:21 s Past Med/Surg History Social History Preferred Language: Kosovan Communication Ability: Effective Beliefs That Will Affect Care: None marital status: / Current Living Situation: Alone Feels Safe at Home: Yes Smoking Status: Former smoker Cigarettes Per Day: 20 Hx Alcohol Use: No Hx Substance Use: No Review of Systems See HPI for pertinent positives & negatives. and A total of 10 systems reviewed and were otherwise negative Physical Exam Vital Signs Vital Signs - 24 hr 01/28/19 13:43 01/28/19 15:43 01/28/19 16:19 Temperature 36.4 C L Temperature Source Oral Sepsis Recent Fever Within 48 Hours No Sepsis New/Unexplained Change in Mental Status No Sepsis Action Taken by Nursing No Action Required Pulse Rate 109 H Pulse Rate [Finger] 107 H Respiratory Rate 20 18 Respiratory Effort / Characteristics Non-Labored Spontaneous Respiratory Depth Normal Normal Respiratory Pattern Regular Blood Pressure 134/84 Blood Pressure [Right Arm] 151/98 H Blood Pressure Mean 100 Blood Pressure Mean [Right Arm] 115 Blood Pressure Position [Right Arm] Sitting Pulse Oximetry 100 97 97 Oxygen Delivery Method Room Air Room Air Room Air 01/28/19 16:33 01/28/19 18:26 01/28/19 20:31 Temperature Temperature Source Sepsis Recent Fever Within 48 Hours Sepsis New/Unexplained Change in Mental Status Sepsis Action Taken by Nursing Pulse Rate Pulse Rate [Finger] 98 H 111 H 86 Respiratory Rate 20 18 18 Respiratory Effort / Characteristics Non-Labored Spontaneous Respiratory Depth Normal Respiratory Pattern Regular Blood Pressure Blood Pressure [Right Arm] 116/81 156/98 H 159/109 H Blood Pressure Mean Blood Pressure Mean [Right Arm] 92 117 125 Blood Pressure Position [Right Arm] Sitting Pulse Oximetry 95 99 98 Oxygen Delivery Method Room Air GENERAL: Mild uncomfortable in appearance, nontoxic. EYE EXAM: Normal conjunctiva. PERRL, no anisocoria and EOM's grossly intact w/o pain. OROPHARYNX: Moist mucus membranes. Grossly normal dentition. NECK: Supple, no nuchal rigidity, no adenopathy, non-tender. no signs of meningismus. LUNGS: Clear to auscultation. Normal chest wall mechanics. HEART: NSR, no MRG. ABDOMEN: Abdomen soft, right-sided abdominal pain, not peritonitic, normo- active bowel sounds, no masses, no rebound or guarding. BACK: No CVA TTP. SKIN: No rashes and no bruising. UPPER EXTREMITIES: Upper extremities are grossly normal. LOWER EXTREMITIES: No pitting edema. No calf pain. No saddle anesthesia, 5/5 extremity strength bilaterally. NEURO EXAM: A&O x3, cranial nerves II-XII grossly intact, normal speech, moves all 4 extremities on command w/o issue. Course 1518: The patient was evaluated in room A3. A complete history and physical exam was performed. 1714: I re-checked the patient and updated her on her test results. 1728: I re-checked the patient. The patient thought she had poison alexis in her left groin, but there is no rash. 183: I re-checked the patient. She states that she is still having pain but does not want to take any pain medications. 183: I reviewed the patient's case with Dr. Ohara, [facility]. He states that if Dr. Holbrook sent the patient to the ED, the the patient needs to be admitted. 1958: I reviewed the patient's case with Dr. Chad Burden, [facility] Hos pipe. He will evaluate the patient for further management. Consultations Consultation #1: I reviewed the patient's case with Dr. Ohara, [facility]. He states that if Dr. Holbrook sent the patient to the ED, the the patient needs to be admitted. Time: 18:39 Consultation #2: I reviewed the patient's case with Dr. Chad Burden, [facility] Hospitalist. He will evaluate the patient for further management. Time: 19:59 Administered Medications Ioversol (Optiray 320 100ml) 94 ml IV ONCE PRN PRN Reason: Interaction Checking Stop: 02/01/19 17:51 Last Admin: 01/28/19 17:52 Dose: 94 ml Documented by: [id number] Ondansetron HCl (Zofran) 4 mg IV Q1H PRN PRN Reason: Nausea Stop: 02/27/19 15:29 Last Admin: 01/28/19 16:30 Dose: 4 mg Documented by: [id number] Discontinued Medications Sodium Chloride (Nss 1000ml) 1,000 mls @ 999 mls/hr IV .Q1H1M ONE Stop: 01/28/19 16:30 Last Infusion: 01/28/19 18:03 Dose: 0 mls/hr Documented by: [id number] Admin: 01/28/19 16:30 Dose: 999 mls/hr Documented by: [id number] Sodium Chloride (Nss 1000ml) 1,000 mls @ 999 mls/hr IV .Q1H1M ONE Stop: 01/28/19 20:44 Last Admin: 01/28/19 20:02 Dose: 999 mls/hr Documented by: [id number] Ketorolac Tromethamine (Toradol) 30 mg IV NOW STA Stop: 01/28/19 18:33 Last Admin: 01/28/19 18:55 Dose: 30 mg Documented by: [id number] Metoclopramide HCl (Reglan) 10 mg IV NOW STA Stop: 01/28/19 18:33 Last Admin: 01/28/19 18:53 Dose: 10 mg Documented by: [id number] Ondansetron HCl (Zofran) 4 mg IV NOW STA Stop: 01/28/19 18:12 Last Admin: 01/28/19 18:25 Dose: 4 mg Documented by: [id number] Oxycodone HCl (Roxicodone Immediate Rel) 15 mg PO NOW STA Stop: 01/28/19 20:24 Last Admin: 01/28/19 20:31 Dose: 15 mg Documented by: [id number] Medical Decision Making Medical Records Attestation: I reviewed the patient's medical records. Home Medications Current Medication List: was personally reviewed by me Laboratory Data Attestation: I reviewed the patient's lab results. Result diagrams: 01/28/19 16:35 01/28/19 16:35 Lab Results 01/28/19 01/28/19 01/28/19 Range/Units 15:35 16:35 16:35 WBC 9.41 (4.8-10.8) K/uL RBC 2.85 L (4.2-5.4) M/uL Hgb 9.1 L (12.0-16.0) g/dL Hct 27.0 L (37-47) % MCV 94.7 (80-100) fL MCH 31.9 (25-34) pg MCHC 33.7 (32-36) g/dL RDW Std Deviation 55.4 H (36.4-46.3) fL RDW Coeff of Tesfaye 15.8 H (11.5-14.5) % Plt Count 158 (130-400) K/uL MPV 9.3 (7.4-10.4) fL Immature Gran % (Auto) 0.7 % Neut % (Auto) 79.5 % Lymph % (Auto) 4.4 % Power % (Auto) 11.7 % Eos % (Auto) 3.4 % Baso % (Auto) 0.3 % Immature Gran # (Auto) 0.07 H (0.00-0.02) K/uL Neut # (Auto) 7.48 H (1.4-6.5) K/uL Lymph # (Auto) 0.41 L (1.2-3.4) K/uL Power # (Auto) 1.10 H (0.11-0.59) K/uL Eos # (Auto) 0.32 (0-0.5) K/uL Baso # (Auto) 0.03 (0-0.2) K/uL Sodium 137 (136-145) mmol/L Potassium 4.4 (3.5-5.1) mmol/L Chloride 106 (98-107) mmol/L Carbon Dioxide 26 (21-32) mmol/L Anion Gap 6.0 (3-11) BUN 19 H (7-18) mg/dl Creatinine 0.60 (0.6-1.2) mg/dl Est Cr Clr Drug Dosing 82.0 ml/min Est GFR ( Amer) 112.4 Est GFR (Non-Af Amer) 97.0 BUN/Creatinine Ratio 32.2 H (10-20) Glucose 120 H (70-99) mg/dl Calcium 8.1 L (8.5-10.1) mg/dl Total Bilirubin 0.4 (0.2-1) mg/dl AST 44 H (15-37) U/L ALT 58 (12-78) U/L Alkaline Phosphatase 228 H (45-117) U/L Total Protein 6.4 (6.4-8.2) gm/dl Albumin 3.0 L (3.4-5.0) gm/dl Globulin 3.4 (2.5-4.0) gm/dl Albumin/Globulin Ratio 0.9 (0.9-2) Lipase 158 (73-393) U/L Urine Color Yellow Urine Appearance Clear (Clear) Urine pH 6.0 (4.5-7.5) Ur Specific [place] 1.018 (1.000-1.030) Urine Protein Negative (Negative) Urine Glucose (UA) Negative (Negative) Urine Ketones Negative (Negative) Urine Blood Negative (Negative) Urine Nitrite Negative (Negative) Urine Bilirubin Negative (Negative) Urine Urobilinogen Negative (Negative) Ur Leukocyte Esterase Negative (Negative) Imaging Data Radiologist's Impression: Radiology results as stated below per my review and the radiologist's interpretation: CT abd pelvis IV con only CLINICAL HISTORY: Hepatocellular carcinoma. Right-sided abdominal and back pain. COMPARISON STUDY: 01/08/2019 TECHNIQUE: The patient was scanned in a dynamic helical fashion during intravenous administration of 94 cc Optiray 320. A dose lowering technique was utilized adhering to the principles of ALARA. CT DOSE: 346.29 mGy.cm FINDINGS: Lower chest: There is a small pericardial effusion. There are bilateral breast implants. The right implant is densely calcified. Liver: There are innumerable space-occupying hepatic masses, consistent with extensive metastatic disease. The liver is mildly enlarged measuring 22 cm. Gallbladder: Contracted. Tiny gallstone. Spleen: Normal in size and attenuation. Pancreas: Unremarkable. Adrenal glands: Unremarkable. Kidneys: Is a 14 mm right renal cyst. No solid renal masses are visualized. There is no hydronephrosis. Bowel: There are no transition zones indicate bowel obstruction. There is no acute diverticulitis. There are no findings to indicate acute appendicitis. Peritoneum: There is no intraperitoneal free air or abdominal ascites. There is a fat-containing umbilical hernia. Vasculature: The abdominal aorta is normal in course and caliber. Adenopathy: None. Pelvic viscera: The bladder, and pelvic viscera are unremarkable. Skeletal structures: There are widespread osteoblastic skeletal metastasis. IMPRESSION: 1. Extensive hepatic metastatic disease similar to the prior study. Mild hepatomegaly 2. Cholelithiasis. Contracted gallbladder 3. Widespread osteoblastic skeletal metastasis 4. No evidence of bowel obstruction. No evidence of free air Electronically signed by: Benji Hubbard M.D. 01/28/2019 5:59 PM ECG Data Attestation: I personally reviewed and interpreted this ECG as follows: Indication: abdominal pain Rate (beats per minute): 99 Rhythm: normal sinus Findings: + other (normal intervals, right axis deviation); no acute ischemic change Blood Pressure Blood Pressure Findings: Elevated blood pressure Blood Pressure Disposition: further management by hospitalist DEDRICK Cullen The patient is a 63 white F w/ PMHx of hypomagnesemia, hypocalcemia, and liver cancer who presents to the ED w/ CC of worsening back pain beginning 1 month ago. Differential diagnosis includes: appendicitis, diverticulitis, PUD, biliary pathology, UTI, pancreatitis, obstruction, mesenteric ischemia, aortic patho logy, infections, inflammatory bowel disease, renal colic, as well as others were entertained. Patient was seen and evaluated the bedside. Patient does have a known history of liver CA does see Dr. Wheeler. Patient states that she was told to come in for pain management as well as possibility of restarting new chemotherapy. Patient does have some right-sided abdominal pain and back pain. Patient denies any saddle anesthesia bowel or bladder incontinence or lower extremity weakness. This is consistent with the patient's physical exam. I do not believe she requires an MRI of the L-spine. The patient did have blood work completed which shows chronic but stable anemia. Platelet count is normal. The patient has fairly normal kidney function. The patient was given IV fluids. The patient does have trace of low calcium. Patient does have elevated AST and alk phosphatase which is likely chronic. Urinalysis negative for infection. Patient CT the abdomen pelvis that showed liver CA with metastases from her bony metastases. No obvious fractures noted. Patient still having persistent discomfort and pain. Given the patient's associated pain worsening bony metastases and request from her primary oncologist to be admitted I did speak the on-call medicine service agreed to further evaluate treat the patient. Patient was admitted to the medicine service. Impression & Plan Cancer related pain, Bony metastasis, H/O liver cancer Discharge Plan Visit Data Chief Complaint: Pain (Generalized) Stated Complaint: PAIN ALL OVER,BACK AND STOMACH PAIN ED Provider: Andre Cummins Discharge Problem: Cancer related pain, Bony metastasis, H/O liver cancer Patient Disposition: Admitted As Inpatient Forms Stand Alone Forms: My [facility] Prescriptions Prescriptions: No Action multivitamin Tablet 1 tab PO QAM RF: 0 cholecalciferol (vitamin D3) [Vitamin D3] 2,000 unit Tablet 2,000 unit PO QAM RF: 0 ondansetron HCl [Zofran] 8 mg tablet 8 mg PO Q8 PRN (Reason: Nausea) RF: 0 prochlorperazine maleate [Compazine] 10 mg tablet 10 mg PO UD PRN (Reason: Nausea) RF: 0 lorazepam [Ativan] 1 mg tablet 1 mg PO PM PRN (Reason: anxiety/sleep) RF: 0 oxycodone 10 mg tablet 5 - 10 mg PO Q4 PRN (Reason: Pain) RF: 0 tramadol 50 mg Tablet 50 mg PO Q4H PRN (Reason: pain) Qty: 30 RF: 0 fentanyl [Duragesic] 25 mcg/hr patch 72 hour 1 patch topical [id number] RF: 0 loratadine [Allergy Relief (loratadine)] 10 mg tablet 10 mg PO QAM RF: 0 Referrals Referrals: Latha Warren DO [Primary Care Provider] - The scribe's documentation has been prepared under my direction and personally reviewed by me in its entirety. I confirm that the note above accurately refle cts all work, treatment, procedures, and medical decision making performed by me.
--- NOTE | 2019-01-28 22:29 | History & Physical Report ---
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 CT scan does show persistent hepatic metastases. CT also does show new bony metastases. Tramadol 50 mg p.o. every 4 hours as needed mild pain. Oxycodone 20 mg p.o. every 4 hours as needed moderate pain.. Verified on PDMP. Morphine sulfate 4 mg IV every 3 hours as needed for severe pain. Consult her oncologist Dr. Holbrook. Present on Admission?: Yes (2) Bony metastasis: As above. Present on Admission?: Yes (3) Small cell lung carcinoma: As above. Present on Admission?: Yes (4) Liver metastases: See above Present on Admission?: Yes (5) Anxiety disorder: Continue lorazepam 1 mg p.o. every evening as needed. Present on Admission?: Yes History of Present Illness Chief Complaint: Patient presents to the emergency department after calling her outpatient oncologist office with worsening generalized abdominal pain and back pain over the past 2 weeks. 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 She had completed her first course of chemotherapy, and is in consideration for her next options as far as chemo treatment. Her pain has worsened gradually over the past 2 weeks, to the point that her medications are no longer controlling her pain, and she was referred to the emergency department for further assessment. Allergies Allergy/AdvReac Type Severity Reaction Status Date / Time aspartame AdvReac Intermediate Headache Verified 01/28/19 15:21 epinephrine AdvReac Mild Palpitation Verified 01/28/19 15:21 s Home Medications Home Medications Medication Instructions Recorded Confirmed Type cholecalciferol (vitamin D3) 2,000 unit PO QAM 07/18/18 01/28/19 History [Vitamin D3] multivitamin 1 tab PO QAM 07/18/18 01/28/19 History lorazepam [Ativan] 1 mg PO PM PRN 08/11/18 01/28/19 History ondansetron HCl [Zofran] 8 mg PO Q8 PRN 08/11/18 01/28/19 History oxycodone 5 - 10 mg PO Q4 PRN 08/11/18 01/28/19 History prochlorperazine maleate 10 mg PO UD PRN 08/11/18 01/28/19 History [Compazine] tramadol 50 mg PO Q4H PRN #30 tab 09/06/18 01/28/19 Rx fentanyl [Duragesic] 1 patch TOPICAL [id number] 11/15/18 01/28/19 History loratadine [Allergy Relief 10 mg PO QAM 01/28/19 01/28/19 History (loratadine)] Past Med/Surg History Social History Preferred Language: Uzbek Communication Ability: Effective Beliefs That Will Affect Care: None marital status: / Current Living Situation: Alone Feels Safe at Home: Yes Smoking Status: Former smoker Cigarettes Per Day: 20 Hx Alcohol Use: No Hx Substance Use: No Review of Systems Review of Systems: The patient denies chest pain, palpitations, shortness of breath, dyspnea on exertion, cough, lower extremity swelling, sore throat, fevers, chills, sweats, weight change, fatigue, nausea, vomiting, diarrhea , constipation, blood in urine or stool, dysuria, urinary frequency or urgency, lightheadedness, dizziness, headache, memory loss, loss of consciousness, rash, abnormal bruising or bleeding, imbalance, focal or generalized weakness, neck pain, or night sweats. The review of systems is otherwise negative other than for that already noted above, and at least 10 systems have been reviewed. Physical Exam Physical Exam: The patient is awake, alert and oriented 3, sitting upright in bed, rubbing the right side of her abdomen, and otherwise in no acute distress Neck--supple. No JVD. No bruits. Thyroid normal, trachea midline, no adenopathy. Heart--normal S1 and S2. No murmurs, rubs or gallops. Lungs--clear bilaterally, no respiratory distress, no accessory muscle use. Abdomen--normal bowel sounds and soft. Tender right upper quadrant. Hepatomegaly. Extremities--no cyanosis or clubbing. No edema. There are good distal pulses b/l. Dermatologic--normal skin turgor, normal color, no abnormal lymph nodes, no rash. Neurologic--cranial nerves II through XII grossly intact. Rheumatologic--normal range of motion. Psychiatric--normal affect. Results & Data Vital Signs (Past 12 Hours) Vital Signs Temp Pulse Pulse Resp BP BP Pulse Ox 01/28/19 22:21 67 18 147/76 H 98 01/28/19 20:31 86 18 159/109 H 98 01/28/19 18:26 111 H 18 156/98 H 99 01/28/19 16:33 98 H 20 116/81 95 01/28/19 16:19 97 01/28/19 15:43 107 H 18 151/98 H 97 01/28/19 13:43 97.5 F L 109 H 20 134/84 100 Laboratory Results Laboratory Results WBC 9.41 K/uL (4.8-10.8) 01/28/19 16:35 RBC 2.85 M/uL (4.2-5.4) L 01/28/19 16:35 Hgb 9.1 g/dL (12.0-16.0) L 01/28/19 16:35 Hct 27.0 % (37-47) L 01/28/19 16:35 MCV 94.7 fL (80-100) 01/28/19 16:35 MCH 31.9 pg (25-34) 01/28/19 16:35 MCHC 33.7 g/dL (32-36) 01/28/19 16:35 RDW Std Deviation 55.4 fL (36.4-46.3) H 01/28/19 16:35 RDW Coeff of [place]faye 15.8 % (11.5-14.5) H 01/28/19 16:35 Plt Count 158 K/uL (130-400) 01/28/19 16:35 MPV 9.3 fL (7.4-10.4) 01/28/19 16:35 Immature Gran % (Auto) 0.7 % 01/28/19 16:35 Neut % (Auto) 79.5 % 01/28/19 16:35 Lymph % (Auto) 4.4 % 01/28/19 16:35 Clark % (Auto) 11.7 % 01/28/19 16:35 Eos % (Auto) 3.4 % 01/28/19 16:35 Baso % (Auto) 0.3 % 01/28/19 16:35 Immature Gran # (Auto) 0.07 K/uL (0.00-0.02) H 01/28/19 16:35 Neut # (Auto) 7.48 K/uL (1.4-6.5) H 01/28/19 16:35 Lymph # (Auto) 0.41 K/uL (1.2-3.4) L 01/28/19 16:35 Clark # (Auto) 1.10 K/uL (0.11-0.59) H 01/28/19 16:35 Eos # (Auto) 0.32 K/uL (0-0.5) 01/28/19 16:35 Baso # (Auto) 0.03 K/uL (0-0.2) 01/28/19 16:35 Sodium 137 mmol/L (136-145) 01/28/19 16:35 Potassium 4.4 mmol/L (3.5-5.1) 01/28/19 16:35 Chloride 106 mmol/L (98-107) 01/28/19 16:35 Carbon Dioxide 26 mmol/L (21-32) 01/28/19 16:35 6.0 (3-11) 01/28/19 16:35 BUN 19 mg/dl (7-18) H 01/28/19 16:35 0.60 mg/dl (0.6-1.2) 01/28/19 16:35 Est Cr Clr Drug Dosing 82.0 ml/min 01/28/19 16:35 Est GFR ( Amer) 112.4 01/28/19 16:35 Est GFR (Non-Af Amer) 97.0 01/28/19 16:35 32.2 (10-20) H 01/28/19 16:35 Glucose 120 mg/dl (70-99) H 01/28/19 16:35 Calcium 8.1 mg/dl (8.5-10.1) L 01/28/19 16:35 0.4 mg/dl (0.2-1) 01/28/19 16:35 AST 44 U/L (15-37) H 01/28/19 16:35 ALT 58 U/L (12-78) 01/28/19 16:35 228 U/L (45-117) H 01/28/19 16:35 6.4 gm/dl (6.4-8.2) 01/28/19 16:35 3.0 gm/dl (3.4-5.0) L 01/28/19 16:35 3.4 gm/dl (2.5-4.0) 01/28/19 16:35 0.9 (0.9-2) 01/28/19 16:35 158 U/L (73-393) 01/28/19 16:35 Yellow 01/28/19 15:35 Clear (Clear) 01/28/19 15:35 6.0 (4.5-7.5) 01/28/19 15:35 Ur Specific [place] 1.018 (1.000-1.030) 01/28/19 15:35 Negative (Negative) 01/28/19 15:35 Negative (Negative) 01/28/19 15:35 Negative (Negative) 01/28/19 15:35 Negative (Negative) 01/28/19 15:35 Negative (Negative) 01/28/19 15:35 Negative (Negative) 01/28/19 15:35 Negative (Negative) 01/28/19 15:35 Ur Leukocyte Esterase Negative (Negative) 01/28/19 15:35 Diagnostic Findings [place], [place] [phone] CT Scan Report Patient: RAMSES ANDREA AAdmit Date: 01/28/19 MR#: [id number]: [address] Acct ID:[id number]: [address] Date: [address] [place] [address] Zip: [place] [address] Age: 63Location: Sex: F Room/Bed: Att Phy: Diagnosis: PAIN ALL OVER,BACK AND STOMACH PAIN Katrina Phy: Latha Warren, DOService Date: 01/28/19 Fam Phy: Interpreting Phy: Benji Hubbard MD Admit Phy: Ordering Phy: Andre Cummins M.D. cc: ~ CT abd pelvis IV con only CLINICAL HISTORY: Hepatocellular carcinoma. Right-sided abdominal and back pain. COMPARISON STUDY: 01/08/2019 TECHNIQUE: The patient was scanned in a dynamic helical fashion during intravenous administration of 94 cc Optiray 320. A dose lowering technique was utilized adhering to the principles of ALARA. CT DOSE: 346.29 mGy.cm FINDINGS: Lower chest: There is a small pericardial effusion. There are bilateral breast implants. The right implant is densely calcified. Liver: There are innumerable space-occupying hepatic masses, consistent with extensive metastatic disease. The liver is mildly enlarged measuring 22 cm. Gallbladder: Contracted. Tiny gallstone. Spleen: Normal in size and attenuation. Pancreas: Unremarkable. Adrenal glands: Unremarkable. Kidneys: Is a 14 mm right renal cyst. No solid renal masses are visualized. There is no hydronephrosis. Bowel: There are no transition zones indicate bowel obstruction. There is no acute diverticulitis. There are no findings to indicate acute appendicitis. Peritoneum: There is no intraperitoneal free air or abdominal ascites. There is a fat-containing umbilical hernia. Vasculature: The abdominal aorta is normal in course and caliber. Adenopathy: None. Pelvic viscera: The bladder, and pelvic viscera are unremarkable. Skeletal structures: There are widespread osteoblastic skeletal metastasis. IMPRESSION: 1. Extensive hepatic metastatic disease similar to the prior study. Mild hepatomegaly 2. Cholelithiasis. Contracted gallbladder 3. Widespread osteoblastic skeletal metastasis 4. No evidence of bowel obstruction. No evidence of free air Electronically signed by: Benji Hubbard M.D. 01/28/2019 5:59 PM Dictated: 01/28/19 1755 Transcribed: 01/28/19 1755 Code Status & VTE Plan Code Status Full code VTE Prophylaxis Plan VTE Prophylaxis will be ordered: Yes
[2019-01-28] MEDS ORDERED: POLYETHYLENE (MIRALAX) 17 GM PACK PO PRN (23:56)
[2019-01-28] MEDS ORDERED: ONDANSETRON 8 MG TABLET PO PRN (23:56)
[2019-01-29] MEDS: OXYCODONE HCL IR 5 MG TAB (IMMEDIATE RELEASE) PO PRN ×5 (00:12→17:46)
[2019-01-29] MEDS: ONDANSETRON HCL 8 MG in DEXTROSE 5% 50 ML IV PRN ×3 (00:38→18:05)
[2019-01-29] MEDS: fentaNYL 25 MCG/HR TDSY TD SCH (01:05)
[2019-01-29] MEDS: TRAMADOL HCL 50 MG TABLET PO PRN ×3 (01:08→19:57)
[2019-01-29] MEDS: LORazepam 1 MG TAB PO PRN ×2 (02:24→23:29)
[2019-01-29] MEDS: ACETAMINOPHEN 325 MG TAB PO PRN (02:24)
[2019-01-29] MEDS: PROCHLORPERAZINE MALEATE 10 MG TAB PO PRN ×2 (06:04→20:55)
[2019-01-29 07:23] LABS: INR 1.1 (0.9-1.1); Prothrombin Time 11.5 Seconds (9.0-12.0)
[2019-01-29] MEDS: ALUMINUM/MAGNESIUM SUSP 30 ML UDC PO PRN (08:17)
[2019-01-29] MEDS: ENOXAPARIN INJ 40 MG/0.4 ML SYR SQ SCH (08:20)
[2019-01-29] MEDS: MAGNESIUM HYDROXIDE SUSP 30 ML UDC PO PRN (08:20)
[2019-01-29] MEDS: LORATADINE 10 MG TAB PO SCH (08:20)
[2019-01-29] MEDS: CHOLECALCIFEROL 1,000 UNITS TAB PO SCH (08:21)
[2019-01-29] MEDS: MULTIVITAMIN TAB PO SCH (08:21)
[2019-01-29] MEDS: CHECK FENTANYL PATCH PLACEMENT SCH ×3 (08:21→23:30)
[2019-01-29] MEDS ORDERED: dexAMETHasone 4 MG in SYRINGE 0 ML IV STA (11:34)
--- NOTE | 2019-01-29 14:15 | Radiation OncologyConsultation ---
Date of Consultation January 29, 2019 Assessment & Plan (1) Small cell lung carcinoma: Assessment: Ms. Nuñez is a 63-year-old female with extensive stage small cell lung carcinoma with widespread metastatic disease to bone and liver. The patient is followed by Dr. Holbrook from medical oncology who has stopped all systemic therapy at this point. Dr. Holborok did discuss potentially considering Opdivo however the patient has not started treatment yet. The patient recently underwent a short course of hypofractionated palliative radiation therapy to her lumbar spine, sacrum and pelvis which completed in January 2019. The patient did have a modest improvement in her pain symptoms however she more recently had a significant flare in her bone pain and has been admitted to the hospital for pain control. We have been asked to evaluate the patient for radiation therapy consideration. Treatment Options: 1. Best supportive care including pain management. Potential consideration of immunotherapy in the outpatient setting with medical oncology. 2. Retreatment with external beam radiation therapy to the same region previously treated. Also consideration for palliative radiation therapy to the liver. 3. Hospice/comfort care with best supportive care. Recommendation: I explained to the patient and recommended that she first consider proper pain management prior to considering any further radiation therapy. I have recommended that palliative care consultation be completed during this inpatient admission and for the patient to have proper review of her pain management. I would only recommend palliative radiation therapy to the lumbar spine, sacrum and pelvis if the patient cannot tolerate pain medication well or if pain medication is not sufficient to control her pain symptoms; I did explain to her that retreating the exact same area will increase the risk of all side effects including damage to nerves and potential bowel damage. The patient inquired about palliative radiation therapy to the liver. Again, I have advised against upfront consideration of palliative radiation therapy for the liver given the fact that the patient is not at a proper evaluation for her pain medication regiment and this could be completed with the help of palliative care. If the patient has no adequate response to pain medication or cannot tolerate pain medication, palliative radiation therapy to the liver could be considered however this option is a last resort when no other options are available. Plan: 1. No plan for radiation therapy. Please call us if other treatment options are not successful and patient needs to be reconsidered for radiation therapy. 2. Palliative care consultation. 3. Medical oncology consultation could be considered however that may also be accomplished in the outpatient setting. 4. Continue all other medical management as per primary medical team. Present on Admission?: Yes History of Present Illness Attending Physician: Josemanuel Delgado DO History of Present Illness 07/21/2018. Liver biopsy, ultrasound-guided aspiration. Metastatic small cell carcinoma. 07/2018 to 12/2018. 6 cycles of combination cisplatin and etoposide chemotherapy underneath the supervision of Dr. Sameer Holbrook. 01/05/2019. CT of chest. IMPRESSION: 1. Stable appearance of the left infrahilar central mass at the site of the known malignancy. Previously noted conglomerate lymphadenopathy in the prevascular and subcarinal regions remain stable though there is development of a pathologically enlarged right tracheal lymph node, which is new from prior. This is highly suspicious for new metastatic lymphadenopathy. 2. Slight interval increase in size of several index hepatic lesions in the setting of diffuse hepatic metastases. This is also concerning for progression of disease. 3. Redemonstration of diffuse osseous metastases. 4. Background emphysema. 5. New trace pericardial effusion, nonspecific and possibly treatment related. 01/05/2019. CT of abdomen/pelvis. FINDINGS: The lung bases are clear. No pneumoperitoneum. No pneumatosis. Innumerable osteoblastic metastatic lesions are again noted. Old, healed pathologic fracture within the right L2 transverse process, unchanged. Bilateral breast augmentation. Trace pericardial effusion. Innumerable hepatic metastatic lesions do not appear to be significantly changed. Stable right renal cyst. No hydronephrosis. The pancreas, adrenal glands, and spleen are unremarkable. There is a punctate stone within the gallbladder. Moderate well-formed stool seen throughout the colon. Normal bladder, uterus, and bilateral adnexa. No bowel wall thickening or obstruction. IMPRESSION: No significant change in the extensive hepatic and osteoblastic metastatic disease. 01/08/2019. Medical oncology follow-up with Dr. Sameer Holbrook. Dr. Holbrook has advised against further chemotherapy. He has recommended consideration for potentially using Opdivo. Dr. Holbrook has recommended urgent consultation for palliative radiation therapy. 01/12/2019 to 01/20/2019. Palliative external beam radiation therapy to the lumbar spine, sacrum and pelvis. 5 x 400 cGy, 2000 cGy total dose. 01/28/2019. CT of abdomen/pelvis. IMPRESSION: 1. Extensive hepatic metastatic disease similar to the prior study. Mild hepatomegaly 2. Cholelithiasis. Contracted gallbladder. 3. Widespread osteoblastic skeletal metastasis. 4. No evidence of bowel obstruction. No evidence of free air. 01/28/2019. Patient admitted to hospital for pain control due to metastatic cancer. Currently, the patient is in significant discomfort. She complains of pain in her low back as well as her right upper abdomen. Her pain is significant and it limits her activities a living. Allergies Allergy/AdvReac Type Severity Reaction Status Date / Time aspartame AdvReac Intermediate Headache Verified 01/28/19 15:21 epinephrine AdvReac Mild Palpitation Verified 01/28/19 15:21 s Home Medications Home Medications Medication Instructions Recorded Confirmed Type cholecalciferol (vitamin D3) 2,000 unit PO QAM 07/18/18 01/28/19 History [Vitamin D3] multivitamin 1 tab PO QAM 07/18/18 01/28/19 History lorazepam [Ativan] 1 mg PO PM PRN 08/11/18 01/28/19 History ondansetron HCl [Zofran] 8 mg PO Q8 PRN 08/11/18 01/28/19 History oxycodone 5 - 10 mg PO Q4 PRN 08/11/18 01/28/19 History prochlorperazine maleate 10 mg PO UD PRN 08/11/18 01/28/19 History [Compazine] tramadol 50 mg PO Q4H PRN #30 tab 09/06/18 01/28/19 Rx fentanyl [Duragesic] 1 patch TOPICAL [id number] 11/15/18 01/28/19 History loratadine [Allergy Relief 10 mg PO QAM 01/28/19 01/28/19 History (loratadine)] Patient History Social History Preferred Language: Mongolian Communication Ability: Effective Nut Grader Required: No Beliefs That Will Affect Care: None marital status: / Current Living Situation: Alone Other Information That Helps Us Care for You: No Feels Safe at Home: Yes Safety Concerns: Feels Safe At This Time Smoking Status: Former smoker Cigarettes Per Day: 20 Hx Alcohol Use: No Hx Substance Use: No Review of Systems Review of Systems: All systems reviewed & are unremarkable except as noted in HPI & below Physical Exam Constitutional: average body habitus and + in distress Eyes: PERRL, conjunctivae normal, anicteric sclerae Respiratory: normal respiratory effort, lungs clear to auscultation Cardiovascular: RRR, no murmur, no edema Skin: no rashes, warm and dry Psychiatric: A+Ox3, euthymic affect Results Additional Studies 01/28/19 15:30 ECG [address] abd pelvis IV con only Stat
--- NOTE | 2019-01-29 15:11 | Hospitalist Progress Note ---
Date of Service January 29, 2019 Assessment & Plan (1) Cancer related pain: The patient presents to the emergency department with worsening pain associated with her 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 CT scan does show persistent hepatic metastases. CT also does show new bony metastases. d/w Dr. Chávez, there have been compliance issues as outpatient was prescribed Methadone, would take some days, other days would not Fentanyl patch was tried, she would sometimes leave the old patch on and place a new once causing unintentional overdose, lethargy will try Oxycontin at 10mg this eveing, use Oxy IR PRN Morphine sulfate 4 mg IV every 3 hours as needed for severe pain. Decadron added to try to limit inflammation and swelling of mets, perhaps improve pain control Radiation oncology consulted, she saw them in the recent past, had 5 treatments, helped slightly (2) Bony metastasis: As above. CT on admission shows that mets have increased in number, diffuse (3) Small cell lung carcinoma: completed 6 months of chemo per patient, Dr. Holbrook has mentioned trying some immune therapy as next step she had some palliative radiation to lower back for bone mets (4) Liver metastases: See above (5) Anxiety disorder: Continue lorazepam 1 mg p.o. every evening as needed. Subjective discussed with oncology, Dr. Ohara and Dr. Holbrook will try some Decadron, ask palliative to see about Methadone, consult radiation oncology patient still with pain, minimal relief over night no dyspnea, no chest pain appetite is poor, vomited this morning reviewed labs and imaging from admission updated patient's friend at the bedside discussed with Dr. Chávez, will try Oxycontin 10mg at bedtime Review of Systems Review of Systems: All systems reviewed & are unremarkable except as noted in HPI & below Respiratory: no cough and no dyspnea Cardiovascular: no chest pain Gastrointestinal: + abdominal pain (RUQ with liver mets), + nausea and + vom iting; no constipation and no diarrhea/loose stools Musculoskeletal: + back pain (low, due to mets) and + joint pain Physical Exam Constitutional: WD/WN, vitals as above + ill appearing; no acute distress Eyes: PERRL, conjunctivae normal, anicteric sclerae ENMT: external ear and nose normal, oropharynx normal Neck: trachea midline, no thyromegaly Respiratory: normal respiratory effort, lungs clear to auscultation Cardiovascular: RRR, no murmur, no edema Gastrointestinal (Abdomen): normal bowel sounds, soft, nontender, no hepatosplenomegaly Musculoskeletal: no cyanosis or clubbing, extremities motor strength 5/5 Skin: no rashes, warm and dry Neurologic: patellar DTR's 2+ bilat, sensation intact and PERRL, EOMI, accommodation nl, no face palsy, no dysarthria Psychiatric: Orientation: alert and oriented x 3 Affect: + depressed affect Mood: + depressed mood Lymphatic: no cervical or axillary lymphadenopathy Results & Data Vital Signs (Past 12 Hours) Vital Signs Temp Pulse Resp BP Pulse Ox 01/29/19 14:21 36.7 C 98 H 16 136/91 96 01/29/19 11:53 36.8 C 91 H 20 117/79 96 01/29/19 04:03 36.5 C 97 H 20 143/86 H 97 Laboratory Results Laboratory Results - last 24 hr 01/28/19 01/28/19 01/28/19 15:35 16:35 16:35 WBC 9.41 RBC 2.85 L Hgb 9.1 L Hct 27.0 L MCV 94.7 MCH 31.9 MCHC 33.7 RDW Std Deviation 55.4 H RDW Coeff of Tesfaye 15.8 H Plt Count 158 MPV 9.3 Immature Gran % (Auto) 0.7 Neut % (Auto) 79.5 Lymph % (Auto) 4.4 [place] % (Auto) 11.7 Eos % (Auto) 3.4 Baso % (Auto) 0.3 Immature Gran # (Auto) 0.07 H Neut # (Auto) 7.48 H Lymph # (Auto) 0.41 L [place] # (Auto) 1.10 H Eos # (Auto) 0.32 Baso # (Auto) 0.03 PT INR Sodium 137 Potassium 4.4 Chloride 106 Carbon Dioxide 26 Anion Gap 6.0 BUN 19 H Creatinine 0.60 Est Cr Clr Drug Dosing 82.0 Est GFR ( Amer) 112.4 Est GFR (Non-Af Amer) 97.0 BUN/Creatinine Ratio 32.2 H Glucose 120 H Calcium 8.1 L Total Bilirubin 0.4 AST 44 H ALT 58 Alkaline Phosphatase 228 H Total Protein 6.4 Albumin 3.0 L Globulin 3.4 Albumin/Globulin Ratio 0.9 Lipase 158 Urine Color Yellow Urine Appearance Clear Urine pH 6.0 Ur Specific [place] 1.018 Urine Protein Negative Urine Glucose (UA) Negative Urine Ketones Negative Urine Blood Negative Urine Nitrite Negative Urine Bilirubin Negative Urine Urobilinogen Negative Ur Leukocyte Esterase Negative 01/29/19 06:44 WBC RBC Hgb Hct MCV MCH MCHC RDW Std Deviation RDW Coeff of Tesfaye Plt Count MPV Immature Gran % (Auto) Neut % (Auto) Lymph % (Auto) [place] % (Auto) Eos % (Auto) Baso % (Auto) Immature Gran # (Auto) Neut # (Auto) Lymph # (Auto) [place] # (Auto) Eos # (Auto) Baso # (Auto) PT 11.5 INR 1.1 Sodium Potassium Chloride Carbon Dioxide Anion Gap BUN Creatinine Est Cr Clr Drug Dosing Est GFR ( Amer) Est GFR (Non-Af Amer) BUN/Creatinine Ratio Glucose Calcium Total Bilirubin AST ALT Alkaline Phosphatase Total Protein Albumin Globulin Albumin/Globulin Ratio Lipase Urine Color Urine Appearance Urine pH Ur Specific [place] Urine Protein Urine Glucose (UA) Urine Ketones Urine Blood Urine Nitrite Urine Bilirubin Urine Urobilinogen Ur Leukocyte Esterase Medications Administered Current Inpatient Medications Acetaminophen (Tylenol) 650 mg PO Q4H PRN PRN Reason: pain/fever Stop: 02/27/19 23:55 Last Admin: 01/29/19 02:24 Dose: 650 mg Documented by: Al Hydrox/Mg Hydrox/Simethicone (Maalox) 30 ml PO Q6H PRN PRN Reason: Dyspepsia Stop: 02/27/19 23:55 Last Admin: 01/29/19 08:17 Dose: 30 ml Documented by: Enoxaparin Sodium (Lovenox) 40 mg SQ Q24H [facility] Stop: 02/28/19 08:59 Last Admin: 01/29/19 08:20 Dose: Not Given Documented by: Fentanyl (Duragesic) 25 mcg TD Q3D [facility] Stop: 02/12/19 00:59 Last Admin: 01/29/19 01:05 Dose: 25 mcg Documented by: Ondansetron HCl 8 mg/ Dextrose 54 mls @ 200 mls/hr IV Q8H PRN PRN Reason: Nausea And Vomiting Stop: 02/28/19 00:17 Last Infusion: 01/29/19 10:54 Dose: Infused Documented by: Dexamethasone Sodium Phosphate (4 mg/ Syringe) 1 mls @ 1 mls/min IV Q8 [facility] Stop: 02/28/19 13:59 Ioversol (Optiray 320 100ml) 94 ml IV ONCE PRN PRN Reason: Interaction Checking Stop: 02/01/19 17:51 Last Admin: 01/28/19 17:52 Dose: 94 ml Documented by: Loratadine (Claritin) 10 mg PO QAM [facility] Stop: 02/28/19 08:59 Last Admin: 01/29/19 08:20 Dose: Not Given Documented by: Lorazepam (Ativan) 1 mg PO PM PRN PRN Reason: anxiety/sleep Stop: 02/27/19 23:55 Last Admin: 01/29/19 02:24 Dose: 1 mg Documented by: Magnesium Hydroxide (Milk Of Magnesia) 30 ml PO Q6H PRN PRN Reason: Constipation Stop: 02/27/19 23:55 Last Admin: 01/29/19 08:20 Dose: 30 ml Documented by: Miscellaneous (Fentanyl Patch Check Placement) 1 ea N/A QS [facility] Stop: 02/28/19 07:59 Last Admin: 01/29/19 08:21 Dose: 1 ea Documented by: Miscellaneous (Fentanyl Patch Remove & Waste) 1 ea N/A Q3D [facility] Stop: 03/03/19 00:48 Morphine Sulfate (Morphine Sulfate) 4 mg IV Q2H PRN PRN Reason: Severe Pain Stop: 02/11/19 23:55 Multivitamins (Multivitamin Tab) 1 tab PO [facility] Stop: 02/28/19 08:59 Last Admin: 01/29/19 08:21 Dose: Not Given Documented by: Oxycodone HCl (Roxicodone Immediate Rel) 10 mg PO Q4 PRN PRN Reason: Moderate Pain Stop: 02/11/19 23:55 Last Admin: 01/29/19 14:20 Dose: 10 mg Documented by: Polyethylene Glycol (Miralax Powder Packet) 17 gm PO DAILY PRN PRN Reason: Constipation Stop: 02/27/19 23:55 Prochlorperazine (Compazine) 10 mg PO Q6H PRN PRN Reason: Nausea Stop: 02/27/19 23:55 Last Admin: 01/29/19 06:04 Dose: 10 mg Documented by: Tramadol HCl (Ultram) 50 mg PO Q4H PRN PRN Reason: Pain Stop: 02/27/19 23:55 Last Admin: 01/29/19 10:52 Dose: 50 mg Documented by: Vitamin D (Vitamin D3) 2,000 units PO QAM [facility] Stop: 02/28/19 08:59 Last Admin: 01/29/19 08:21 Dose: Not Given Documented by:
--- NOTE | 2019-01-29 16:28 | Palliative Care Consultation ---
Date of Consultation January 29, 2019 Assessment & Plan (1) Palliative care encounter: Patient seen and examined in her room-patient's brother and [id number] at bedside-patient gave permission to speak with them present. Patient is a 63-year-old female diagnosed in July 2018 with small cell lung cancer with metastatic disease to the liver and bone. Patient was last seen by our service in the beginning of November of this year when she was admitted for intractable nausea and vomiting. Patient has received XRT for bone mets in the past with good response. Patient was having increasing back pain-had increased her oxycodone to 20 mg every 4 hours as per oncology, she is also on a 25 mcg fentanyl patch. Patient has had a bad reaction in the past to morphine as well as Dilaudid. Patient since admission has been continued on her 25 mcg patch, she has required 4 doses of oxycodone at 10 mg in the past 16 hours as well as tramadol 50 mg x 2. Patient reports there have been times at home when she has put on a new fentanyl patch and forgotten to remove her old-this has resulted in patient feeling poorly-she describes it as feeling "hung over". Patient very reluctant to increase her fentanyl patch or to try some long-acting oxycodone. Did get patient to agree to try one single dose of OxyContin at 10 mg tonight at 10 PM-the goal is to control her pain throughout the night so she can get a decent nights sleep. Patient very reluctant and resistant to any changes in her medications-she is hoping she can have some more radiation therapy as this has helped greatly in the past. Patient is x2, lives alone, has a daughter for which she is estranged from. Patient has a history of jheffgz-51-prhz-year history-quit in September 2018. -Metastatic small cell lung cancer-patient completed chemo-had disease progression, no further chemo planned at this time -Cancer related pain-due to bone mets-has had good response to XRT in the past. Currently on fentanyl 25 mcg and as needed oxycodone at 20 mg-patient very reluctant and resistant to any changes in her regime. Patient did agree to a one-time trial of OxyContin this evening-as an attempt to control her pain better overnight. -Abdominal pain-due to liver mets-continue pain regime as outlined above -Will continue to follow and assist with pain management as patient allows. (2) Cancer related pain: (3) Bony metastasis: (4) Metastatic primary lung cancer: (5) Liver metastases: History of Present Illness Reason for Consultation: Assist with pain management-cancer related pain Requesting Physician: Dr. Josemanuel Delgado Attending Physician: Josemanuel Delgado, DO History of Present Illness Patient seen and examined in her room-patient's brother and [id number] at bedside-patient gave permission to speak with them present. Patient is a 63-year-old female diagnosed in July 2018 with small cell lung cancer with metastatic disease to the liver and bone. Patient was last seen by our service in the beginning of November of this year when she was admitted for intractable nausea and vomiting. Patient has received XRT for bone mets in the past with good response. Patient was having increasing back pain-had increased her oxycodone to 20 mg every 4 hours as per oncology, she is also on a 25 mcg fentanyl patch. Patient has had a bad reaction in the past to morphine as well as Dilaudid. Patient since admission has been continued on her 25 mcg patch, she has required 4 doses of oxycodone at 10 mg in the past 16 hours as well as tramadol 50 mg x 2. Patient reports there have been times at home when she has put on a new fentanyl patch and forgotten to remove her old-this has resulted in patient feeling poorly-she describes it as feeling "hung over". Patient very reluctant to increase her fentanyl patch or to try some long-acting oxycodone. Did get patient to agree to try one single dose of OxyContin at 10 mg tonight at 10 PM-the goal is to control her pain throughout the night so she can get a decent nights sleep. Patient very reluctant and resistant to any changes in her medications-she is hoping she can have some more radiation therapy as this has helped greatly in the past. Patient is x2, lives alone, has a daughter for which she is estranged from. Patient has a history of erzutkg-84-mfwz-year history-quit in September 2018. Allergies Allergy/AdvReac Type Severity Reaction Status Date / Time aspartame AdvReac Intermediate Headache Verified 01/28/19 15:21 epinephrine AdvReac Mild Palpitation Verified 01/28/19 15:21 s Home Medications Home Medications Medication Instructions Recorded Confirmed Type cholecalciferol (vitamin D3) 2,000 unit PO QAM 07/18/18 01/28/19 History [Vitamin D3] multivitamin 1 tab PO QAM 07/18/18 01/28/19 History lorazepam [Ativan] 1 mg PO PM PRN 08/11/18 01/28/19 History ondansetron HCl [Zofran] 8 mg PO Q8 PRN 08/11/18 01/28/19 History oxycodone 5 - 10 mg PO Q4 PRN 08/11/18 01/28/19 History prochlorperazine maleate 10 mg PO UD PRN 08/11/18 01/28/19 History [Compazine] tramadol 50 mg PO Q4H PRN #30 tab 09/06/18 01/28/19 Rx fentanyl [Duragesic] 1 patch TOPICAL [id number] 11/15/18 01/28/19 History loratadine [Allergy Relief 10 mg PO QAM 01/28/19 01/28/19 History (loratadine)] Patient History Medical History 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 Mother , age 87 of heart issues No problems noted. Brother No problems noted. Son , car accidnet No problems noted. Daughter No problems noted. Other Diabetes Social History Preferred Language: Samoan Communication Ability: Effective Medical Referral Coordinator Required: No Beliefs That Will Affect Care: None marital status: / Current Living Situation: Alone Other Information That Helps Us Care for You: No Feels Safe at Home: Yes Safety Concerns: Feels Safe At This Time Smoking Status: Former smoker Cigarettes Per Day: 20 Hx Alcohol Use: No Hx Substance Use: No Results & Data Vital Signs (Past 12 Hours) Vital Signs Temp Pulse Resp BP Pulse Ox 01/29/19 14:21 98.1 F 98 H 16 136/91 96 01/29/19 11:53 98.2 F 91 H 20 117/79 96 Time Spent Attending Total time spent 70 minutes with greater than 50% of the time spent at bedside discussing pain management options and addressing patient concerns regarding change in any medications.
--- NOTE | 2019-01-29 17:07 | Oncology Consultation ---
Date of Consultation January 29, 2019 Assessment & Plan (1) Small cell lung carcinoma: Ms. Nuñez's disease did not respond at all to chemotherapy. Indeed, she progressed with widespread bony metastases. This is a devastating outcome with a very grim prognosis. Such disease is usually resistant to further chemotherapy. One possible option would be immunotherapy, either single-agent or combination. These therapies are better tolerated than chemo but responses are seen in, at best, around a third of patients. Hospice would also be a very reasonable consideration in her situation, though I am not sure she is totally ready for that step. She can discuss further treatment with Dr. Holbrook in the office, unless some health issue during this stay presses the issue. Present on Admission?: Yes (2) Chronic pain: Her pain is intractable and debilitating. Some of her issues are related to compliance, but she also complains of some sedation with her current narcotics. She felt a bit better with the palliative RT, but not significantly so. We should consult Dr. Peñaloza and palliative care. Given her sedation issues, she might benefit from methadone. Otherwise, at least for now, I would schedule her breakthrough oxycodone and keep up with the Fentanyl patches. Present on Admission?: Yes History of Present Illness Reason for Consultation: Metastatic small cell lung cancer Intractable pain Attending Physician: Josemanuel Delgado, DO History of Present Illness Ms. Nuñez is a 63 year old woman with relatively little past medical history. She came to attention last fall with generalized weakness, fatigue and gait and balance. She was hospitalized in early June with similar symptoms and some respiratory complaints. CT scan of the chest abdomen pelvis revealed a large left hilar mass with innumerable hepatic metastatic deposits. She was also noted to have hyponatremia consistent with SIADH. Liver biopsy 07/21/2018 revealed metastatic small cell carcinoma. She was treated with 6 cycles of Cisplatin and Etoposide from late July, through mid November,. Unfortunately, since that time she has developed widespread bony metastatic disease. The rest of her disease is essentially unchanged, consistent with a lack of response to treatment. She has developed very severe low back pain and was treated last week and the week before with palliative RT. It helped somewhat but her pain has consistently worsened. She spoke with Dr. Holbrook yesterday, who directed her to the ER for management of intractable pain. She had a difficult day yesterday due to missing several doses of narcotics. She has been sedated by the Fentanyl and oxycodone and wants to consider possible alternatives. Allergies Allergy/AdvReac Type Severity Reaction Status Date / Time aspartame AdvReac Intermediate Headache Verified 01/28/19 15:21 epinephrine AdvReac Mild Palpitation Verified 01/28/19 15:21 s Home Medications Home Medications Medication Instructions Recorded Confirmed Type cholecalciferol (vitamin D3) 2,000 unit PO QAM 07/18/18 01/28/19 History [Vitamin D3] multivitamin 1 tab PO QAM 07/18/18 01/28/19 History lorazepam [Ativan] 1 mg PO PM PRN 08/11/18 01/28/19 History ondansetron HCl [Zofran] 8 mg PO Q8 PRN 08/11/18 01/28/19 History oxycodone 5 - 10 mg PO Q4 PRN 08/11/18 01/28/19 History prochlorperazine maleate 10 mg PO UD PRN 08/11/18 01/28/19 History [Compazine] tramadol 50 mg PO Q4H PRN #30 tab 09/06/18 01/28/19 Rx fentanyl [Duragesic] 1 patch TOPICAL [id number] 11/15/18 01/28/19 History loratadine [Allergy Relief 10 mg PO QAM 01/28/19 01/28/19 History (loratadine)] Patient History Medical History 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 Mother , age 87 of heart issues No problems noted. Brother No problems noted. Son , car accidnet No problems noted. Daughter No problems noted. Other Diabetes Social History Preferred Language: Luxembourgish Communication Ability: Effective Fish Packer Required: No Beliefs That Will Affect Care: None marital status: / Current Living Situation: Alone Other Information That Helps Us Care for You: No Feels Safe at Home: Yes Safety Concerns: Feels Safe At This Time Smoking Status: Former smoker Cigarettes Per Day: 20 Hx Alcohol Use: No Hx Substance Use: No Review of Systems Constitutional: + fatigue and + weakness; no fever Eyes: no worsening vision Respiratory: no cough and no dyspnea Cardiovascular: no chest pain, no palpitations and no edema Gastrointestinal: + abdominal pain (RUQ); no vomiting and no diarrhea/loose stools Musculoskeletal: as per Subjective / HPI Integumentary: no rash and no new lesions Neurologic: + generalized weakness; no localized weakness and no headache(s) Physical Exam Constitutional: + ill appearing (chronically) and + frail appearing; no acute distress Eyes: + anicteric sclerae and EOM intact bilaterally ENMT: external ear and nose normal, oropharynx normal Respiratory: normal respiratory effort, lungs clear to auscultation Cardiovascular: RRR, no murmur, no edema Gastrointestinal (Abdomen): Inspection/Auscultation: abdomen not distended Percussion/Palpation: + abdomen tender (in the RUQ over her liver), abdomen soft and + hepatomegaly Psychiatric: A+Ox3, euthymic affect Lymphatic: no cervical or axillary lymphadenopathy Results & Data Vital Signs (Past 12 Hours) Vital Signs Temp Pulse Resp BP Pulse Ox 01/29/19 14:21 36.7 C 98 H 16 136/91 96 01/29/19 11:53 36.8 C 91 H 20 117/79 96 Laboratory Results Laboratory Results - last 24 hr 01/28/19 01/29/19 16:35 06:44 PT 11.5 INR 1.1 Total Bilirubin 0.4 Alkaline Phosphatase 228 H Total Protein 6.4 Globulin 3.4 Albumin/Globulin Ratio 0.[address] A/P, 01/28/19: IMPRESSION: 1. Extensive hepatic metastatic disease similar to the prior study. Mild hepatomegaly 2. Cholelithiasis. Contracted gallbladder 3. Widespread osteoblastic skeletal metastasis 4. No evidence of bowel obstruction. No evidence of free air
[2019-01-29] MEDS: DEXAMETHASONE SOD PHOSPHATE 4 MG in SYRINGE 0 ML IV SCH (19:54)
[2019-01-29] MEDS: DOCUSATE SODIUM/SENNA 50/8.6MG TAB PO SCH (20:01)
[2019-01-29] MEDS ORDERED: OXYCODONE HCL 10 MG TABCR (OXYCONTIN) PO SCH (22:00)
[2019-01-29] MEDS: PROMETHAZINE HCL 12.5 MG in SODIUM CHLORIDE 0.9% 50 ML IV PRN (22:07)
[2019-01-30] MEDS: OXYCODONE HCL IR 5 MG TAB (IMMEDIATE RELEASE) PO PRN ×5 (01:34→17:50)
[2019-01-30] MEDS: DEXAMETHASONE SOD PHOSPHATE 4 MG in SYRINGE 0 ML IV SCH ×4 (06:08→21:32)
[2019-01-30] MEDS: MULTIVITAMIN TAB PO SCH (07:51)
[2019-01-30] MEDS: LORATADINE 10 MG TAB PO SCH (07:51)
[2019-01-30] MEDS: DOCUSATE SODIUM/SENNA 50/8.6MG TAB PO SCH ×2 (07:52→21:32)
[2019-01-30] MEDS: CHOLECALCIFEROL 1,000 UNITS TAB PO SCH (07:52)
[2019-01-30] MEDS: CHECK FENTANYL PATCH PLACEMENT SCH ×2 (08:00→16:06)
[2019-01-30] MEDS: ENOXAPARIN INJ 40 MG/0.4 ML SYR SQ SCH (08:00)
[2019-01-30] MEDS: ONDANSETRON HCL 8 MG in DEXTROSE 5% 50 ML IV PRN (11:07)
--- NOTE | 2019-01-30 11:35 | Palliative Care Progress Note ---
Date of Service January 30, 2019 Assessment & Plan (1) Palliative care encounter: Patient is a 63-year-old female diagnosed in July 2018 with small cell lung cancer with metastatic disease to the liver and bone. Patient was last seen by our service in the beginning of November of this year when she was admitted for intractable nausea and vomiting. Patient has received XRT for bone mets in the past with good response. Patient was having increasing back pain-had increased her oxycodone to 20 mg every 4 hours as per oncology, she is also on a 25 mcg fentanyl patch. Patient has had a bad reaction in the past to morphine as well as Dilaudid. Patient since admission has been continued on her 25 mcg patch, she has required 4 doses of oxycodone at 10 mg in the past 16 hours as well as tramadol 50 mg x 2. Patient reports there have been times at home when she has put on a new fentanyl patch and forgotten to remove her old-this has resulted in patient feeling poorly-she describes it as feeling "hung over". -Patient was ordered a one time dose of Oxycontin 10 mg last night which she was receptive to. -The patient states that she does not want to become "addicted to the pain medication". I reassured her that we know she is in pain and want to help her be comfortable. -She was receptive to the following medication changes which I ordered: Oxycontin 10 mg PO BID, OXY IR 10mg po Q3H PRN. She has only used 2 doses of the IR over the last 24 hours. -The patient c/o racing thoughts at bedtime. She does have a PRN Ativan order, which I think she could benefit from a scheduled PM dose of Ativan which I ordered. Ativan 1 mg PO QPM -Patient currently on Fentanyl patch 25 mcg TD Q3D which she refuses to allow an increase for long-acting pantoja control. -Patient stated that she would be willing to talk about "other things" related to her goals once her pain is under control. -Abdominal pain-due to liver mets-continue pain regime as outlined above -Will continue to follow and assist with pain management as patient allows. (2) Cancer related pain: (3) Bony metastasis: (4) Metastatic primary lung cancer: (5) H/O liver cancer: Subjective -Patient was standing in her room when I entered, stating that she is uncomfortable. -Her pain today is primarily in her lower back and right abdomen. She describes both as throbbing and aching continuously. Walking does either alleviate or distract her pain, she is not quite sure. -Patient was given a one time dose of Oxycontin 10 mg po last evening and she said that it did help some, but expressed that she had a hard time falling/staying asleep last night. -Please see A/P for further details. Review of Systems Constitutional: no fever, no chills and no malaise Eyes: no diplopia and no eye pain Ear, Nose, Mouth, Throat: as per Subjective / HPI Respiratory: no cough Cardiovascular: no chest pain with activity, no dyspnea at rest and no lightheadedness Gastrointestinal: + constipation Musculoskeletal: as per Subjective / HPI Integumentary: as per Subjective / HPI Neurologic: as per Subjective / HPI Psychiatric: + hopelessness Physical Exam Constitutional: well developed and + ill appearing Eyes: PERRL, conjunctivae normal, anicteric sclerae ENMT: external ear and nose normal, oropharynx normal Neck: trachea midline, no thyromegaly Respiratory: normal respiratory effort Auscultation: + diminished lung sounds Cardiovascular: Rate/Rhythm: regular rate and regular rhythm Heart Sounds: normal S1 and normal S2 Extremities: normal capillary refill Gastrointestinal (Abdomen): Inspection/Auscultation: + abdomen distended Percussion/Palpation: + guarding (RUQ + liver mets), abdomen soft and + abdomen firm Skin: no rashes, warm and dry normal turgor and + pallor Psychiatric: Affect: + anxious affect and + tearful affect Mood: + anxious mood Judgement: good judgement Lymphatic: no cervical or axillary lymphadenopathy Results & Data Vital Signs (Past 12 Hours) Vital Signs Temp Pulse Resp BP Pulse Ox 01/30/19 07:25 37 C 94 H 18 152/95 H 95 01/29/19 23:39 36.7 C 97 H 20 168/104 H 98 Time Spent Midlevel Total time spent 35 minutes with > 50% of that time spent providing pain management and discussing wtih IDT
[2019-01-30] MEDS: MAGNESIUM HYDROXIDE SUSP 30 ML UDC PO PRN (12:28)
[2019-01-30] MEDS: OXYCODONE HCL 10 MG TABCR (OXYCONTIN) PO SCH ×2 (13:50→20:58)
[2019-01-30] MEDS: PROMETHAZINE HCL 12.5 MG in SODIUM CHLORIDE 0.9% 50 ML IV PRN (16:03)
[2019-01-30] MEDS: TRAMADOL HCL 50 MG TABLET PO PRN (17:08)
[2019-01-30] MEDS ORDERED: Nursing to Pharmacy Communication ONE (17:56)
[2019-01-30] MEDS ORDERED: OXYCODONE HCL IR 5 MG TAB (IMMEDIATE RELEASE) PO ONE (18:15)
[2019-01-30] MEDS: LORazepam 1 MG TAB PO SCH (20:58)
--- NOTE | 2019-01-30 23:03 | Hospitalist Progress Note ---
Date of Service January 30, 2019 Assessment & Plan (1) Cancer related pain: The patient presents to the emergency department with worsening pain associated with her 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 CT scan does show persistent hepatic metastases. CT also does show new bony metastases. d/w Dr. Chávez, there have been compliance issues as outpatient was prescribed Methadone, would take some days, other days would not Fentanyl patch was tried, she would sometimes leave the old patch on and place a new once causing unintentional overdose, lethargy Plan: increase Oxycontin to 10mg BID since it helped last night increase frequency of OxyIR 10mg to every 3 hours continue Fentanyl patch at 25mcg continue Decadron no current role for radiation therapy, they would like to see how pain is controlled when medications are maximized (2) Bony metastasis: As above. CT on admission shows that mets have increased in number, diffuse chemotherapy has failed (3) Small cell lung carcinoma: completed [address] Ohara recommends considering immune therapy generally well tolerated, about a third of patients have a favorable response patient knows that there are no curative treatments (4) Liver metastases: See above (5) Anxiety disorder: Continue lorazepam 1 mg p.o. every evening as needed. Subjective patient says that the Oxycontin improved pain control, got some sleep last night appetite is okay, c/o a lot of gas today d/w pain management, will increase frequency of OxyIR to q3 continue Fentanyl patch discussed with oncology, radiation oncology, appreciate their recommendations Review of Systems Review of Systems: All systems reviewed & are unremarkable except as noted in HPI & below Gastrointestinal: + abdominal pain (RUQ with liver mets), + belching, + bloating, + nausea and + vomiting; no constipation and no diarrhea/loose stools Musculoskeletal: + back pain (low, due to mets) and + joint pain Physical Exam Constitutional: WD/WN, vitals as above no acute distress Eyes: PERRL, conjunctivae normal, anicteric sclerae ENMT: external ear and nose normal, oropharynx normal Neck: trachea midline, no thyromegaly Respiratory: normal respiratory effort, lungs clear to auscultation Cardiovascular: RRR, no murmur, no edema Gastrointestinal (Abdomen): normal bowel sounds, soft, nontender, no hepatosplenomegaly Musculoskeletal: no cyanosis or clubbing, extremities motor strength 5/5 Skin: no rashes, warm and dry Neurologic: patellar DTR's 2+ bilat, sensation intact and PERRL, EOMI, accommodation nl, no face palsy, no dysarthria Psychiatric: Orientation: alert and oriented x 3 Affect: + depressed affect Mood: + depressed mood Lymphatic: no cervical or axillary lymphadenopathy Results & Data Vital Signs (Past 12 Hours) Vital Signs Temp Pulse Resp BP BP Pulse Ox 01/30/19 15:08 36.3 C L 83 19 100/68 93 01/30/19 12:02 37.2 C 95 H 20 125/85 96 Medications Administered Current Inpatient Medications Acetaminophen (Tylenol) 650 mg PO Q4H PRN PRN Reason: pain/fever Stop: 02/27/19 23:55 Last Admin: 01/29/19 02:24 Dose: 650 mg Documented by: Al Hydrox/Mg Hydrox/Simethicone (Maalox) 30 ml PO Q6H PRN PRN Reason: Dyspepsia Stop: 02/27/19 23:55 Last Admin: 01/29/19 08:17 Dose: 30 ml Documented by: Enoxaparin Sodium (Lovenox) 40 mg SQ Q24H [facility] Stop: 02/28/19 08:59 Last Admin: 01/30/19 08:00 Dose: Not Given Documented by: Fentanyl (Duragesic) 25 mcg TD Q3D [facility] Stop: 02/12/19 00:59 Last Admin: 01/29/19 01:05 Dose: 25 mcg Documented by: Ondansetron HCl 8 mg/ Dextrose 54 mls @ 200 mls/hr IV Q8H PRN PRN Reason: Nausea And Vomiting Stop: 02/28/19 00:17 Last Infusion: 01/30/19 11:34 Dose: Infused Documented by: Dexamethasone Sodium Phosphate (4 mg/ Syringe) 1 mls @ 1 mls/min IV Q8 [facility] Stop: 02/28/19 13:59 Last Admin: 01/30/19 21:32 Dose: 1 mls/min Documented by: Promethazine HCl 12.5 mg/ (Sodium Chloride) 50.5 mls @ 202 mls/hr IV Q3H PRN PRN Reason: Nausea Stop: 02/28/19 20:58 Last Infusion: 01/30/19 16:25 Dose: Infused Documented by: Ioversol (Optiray 320 100ml) 94 ml IV ONCE PRN PRN Reason: Interaction Checking Stop: 02/01/19 17:51 Last Admin: 01/28/19 17:52 Dose: 94 ml Documented by: Loratadine (Claritin) 10 mg PO QAM [facility] Stop: 02/28/19 08:59 Last Admin: 01/30/19 07:51 Dose: 10 mg Documented by: Lorazepam (Ativan) 1 mg PO PM PRN PRN Reason: anxiety/sleep Stop: 02/27/19 23:55 Last Admin: 01/29/19 23:29 Dose: 1 mg Documented by: Lorazepam (Ativan) 1 mg PO QPM [facility] Stop: 03/01/19 20:59 Last Admin: 01/30/19 20:58 Dose: 1 mg Documented by: Magnesium Hydroxide (Milk Of Magnesia) 30 ml PO Q6H PRN PRN Reason: Constipation Stop: 02/27/19 23:55 Last Admin: 01/30/19 12:28 Dose: 30 ml Documented by: Miscellaneous (Fentanyl Patch Check Placement) 1 ea N/A QS [facility] Stop: 02/28/19 07:59 Last Admin: 01/30/19 16:06 Dose: 1 ea Documented by: Miscellaneous (Fentanyl Patch Remove & Waste) 1 ea N/A Q3D [facility] Stop: 03/03/19 00:48 Multivitamins (Multivitamin Tab) 1 tab PO QAM [facility] Stop: 02/28/19 08:59 Last Admin: 01/30/19 07:51 Dose: 1 tab Documented by: Oxycodone HCl (Oxycontin) 10 mg PO Q12 [facility] Stop: 02/13/19 11:44 Last Admin: 01/30/19 20:58 Dose: 10 mg Documented by: Oxycodone HCl (Roxicodone Immediate Rel) 10 mg PO Q3H PRN PRN Reason: Pain Stop: 02/13/19 18:07 Polyethylene Glycol (Miralax Powder Packet) 17 gm PO DAILY PRN PRN Reason: Constipation Stop: 02/27/19 23:55 Prochlorperazine (Compazine) 10 mg PO Q6H PRN PRN Reason: Nausea Stop: 02/27/19 23:55 Last Admin: 01/29/19 20:55 Dose: 10 mg Documented by: Senna/Docusate Sodium (Senokot S) 1 tab PO BID [facility] Stop: 02/28/19 20:59 Last Admin: 01/30/19 21:32 Dose: Not Given Documented by: Tramadol HCl (Ultram) 50 mg PO Q4H PRN PRN Reason: Pain Stop: 02/27/19 23:55 Last Admin: 01/30/19 17:08 Dose: 50 mg Documented by: Vitamin D (Vitamin D3) 2,000 units PO QAM [facility] Stop: 02/28/19 08:59 Last Admin: 01/30/19 07:52 Dose: 2,000 units Documented by:
[2019-01-31] MEDS: CHECK FENTANYL PATCH PLACEMENT SCH ×4 (00:06→23:41)
[2019-01-31] MEDS: OXYCODONE HCL IR 5 MG TAB (IMMEDIATE RELEASE) PO PRN ×5 (03:39→20:03)
[2019-01-31] MEDS: DEXAMETHASONE SOD PHOSPHATE 4 MG in SYRINGE 0 ML IV SCH ×3 (06:18→21:03)
[2019-01-31] MEDS: TRAMADOL HCL 50 MG TABLET PO PRN ×2 (06:28→11:19)
[2019-01-31] MEDS: ENOXAPARIN INJ 40 MG/0.4 ML SYR SQ SCH (07:45)
[2019-01-31] MEDS: OXYCODONE HCL 10 MG TABCR (OXYCONTIN) PO SCH ×2 (07:54→21:02)
[2019-01-31] MEDS: LORATADINE 10 MG TAB PO SCH (09:24)
[2019-01-31] MEDS: MULTIVITAMIN TAB PO SCH (09:24)
[2019-01-31] MEDS: CHOLECALCIFEROL 1,000 UNITS TAB PO SCH (09:25)
[2019-01-31] MEDS: DOCUSATE SODIUM/SENNA 50/8.6MG TAB PO SCH ×2 (09:25→21:02)
[2019-01-31] MEDS ORDERED: HYDROmorphone INJ 1 MG/ML SYRINGE IV STA (11:45)
--- NOTE | 2019-01-31 11:48 | Hospitalist Progress Note ---
Date of Service January 31, 2019 Assessment & Plan (1) Cancer related pain: The patient presents to the emergency department with worsening pain associated with her 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 CT scan does show persistent hepatic metastases. CT also does show new bony metastases. d/w Dr. Chávez, there have been compliance issues as outpatient was prescribed Methadone, would take some days, other days would not Fentanyl patch was tried, she would sometimes leave the old patch on and place a new once causing unintentional overdose, lethargy Plan: continue Oxycontin 10mg BID since it is helping increase frequency of OxyIR 10mg to every 3 hours, some improvement in pain continue Fentanyl patch at 25mcg continue Decadron Dilaudid IV x 1 today no current role for radiation therapy, they would like to see how pain is controlled when medications are maximized (2) Bony metastasis: As above. CT on admission shows that mets have increased in number, diffuse chemotherapy has failed (3) Small cell lung carcinoma: completed [address] Ohara recommends considering immune therapy generally well tolerated, about a third of patients have a favorable response patient knows that there are no curative treatments Dr. Ohara will work on getting patient follow up this week (4) Liver metastases: See above (5) Anxiety disorder: Continue lorazepam 1 mg p.o. every evening as needed. (6) Hypocalcemia: Ca is slightly low at 8.1 but corrected is normal (7) Anemia: low at 9.1 on admission over past few months has ranged 8.5 to 9.5 likely bone marrow suppression from chemo repeat tomorrow Subjective patient was doing really well this morning, said her pain was 1 out of 10 she was cautiously optimistic about going home tomorrow later in the morning her pain became intense and severe, 10 out of 10 this was despite taking the Oxycontin, Fentanyl patch and Oxycodone 10 q3 gave dose of Dilaudid 1mg IV patient eating a little better, no BM today she is depressed, anxious about going home discussed that tomorrow would be reasonable goal Review of Systems Review of Systems: All systems reviewed & are unremarkable except as noted in HPI & below Musculoskeletal: + back pain (low, due to mets) and + joint pain Psychiatric: + depression Physical Exam Constitutional: WD/WN, vitals as above no acute distress Eyes: PERRL, conjunctivae normal, anicteric sclerae ENMT: external ear and nose normal, oropharynx normal Neck: trachea midline, no thyromegaly Respiratory: normal respiratory effort, lungs clear to auscultation Cardiovascular: RRR, no murmur, no edema Gastrointestinal (Abdomen): normal bowel sounds, soft, nontender, no hepatosplenomegaly Musculoskeletal: no cyanosis or clubbing, extremities motor strength 5/5 Spine: + limited thoraco-lumbar ROM and + sacral tenderness Skin: no rashes, warm and dry Neurologic: patellar DTR's 2+ bilat, sensation intact and PERRL, EOMI, accommodation nl, no face palsy, no dysarthria Psychiatric: Orientation: alert and oriented x 3 Affect: + depressed affect Mood: + depressed mood Lymphatic: no cervical or axillary lymphadenopathy Results & Data Vital Signs (Past 12 Hours) Vital Signs Temp Pulse Pulse Resp BP Pulse Ox 01/31/19 07:48 37.0 C 82 20 150/94 H 95 01/31/19 04:00 36.9 C 90 18 151/91 H 93 Medications Administered Current Inpatient Medications Acetaminophen (Tylenol) 650 mg PO Q4H PRN PRN Reason: pain/fever Stop: 02/27/19 23:55 Last Admin: 01/29/19 02:24 Dose: 650 mg Documented by: Al Hydrox/Mg Hydrox/Simethicone (Maalox) 30 ml PO Q6H PRN PRN Reason: Dyspepsia Stop: 02/27/19 23:55 Last Admin: 01/29/19 08:17 Dose: 30 ml Documented by: Enoxaparin Sodium (Lovenox) 40 mg SQ Q24H [facility] Stop: 02/28/19 08:59 Last Admin: 01/31/19 07:45 Dose: Not Given Documented by: Fentanyl (Duragesic) 25 mcg TD Q3D [facility] Stop: 02/12/19 00:59 Last Admin: 01/29/19 01:05 Dose: 25 mcg Documented by: Hydromorphone HCl (Dilaudid) 1 mg IV NOW STA Stop: 01/31/19 11:46 Ondansetron HCl 8 mg/ Dextrose 54 mls @ 200 mls/hr IV Q8H PRN PRN Reason: Nausea And Vomiting Stop: 02/28/19 00:17 Last Infusion: 01/30/19 11:34 Dose: Infused Documented by: Dexamethasone Sodium Phosphate (4 mg/ Syringe) 1 mls @ 1 mls/min IV Q8 [facility] Stop: 02/28/19 13:59 Last Admin: 01/31/19 06:18 Dose: 1 mls/min Documented by: Promethazine HCl 12.5 mg/ (Sodium Chloride) 50.5 mls @ 202 mls/hr IV Q3H PRN PRN Reason: Nausea Stop: 02/28/19 20:58 Last Infusion: 01/30/19 16:25 Dose: Infused Documented by: Ioversol (Optiray 320 100ml) 94 ml IV ONCE PRN PRN Reason: Interaction Checking Stop: 02/01/19 17:51 Last Admin: 01/28/19 17:52 Dose: 94 ml Documented by: Loratadine (Claritin) 10 mg PO QAM [facility] Stop: 02/28/19 08:59 Last Admin: 01/31/19 09:24 Dose: 10 mg Documented by: Lorazepam (Ativan) 1 mg PO PM PRN PRN Reason: anxiety/sleep Stop: 02/27/19 23:55 Last Admin: 01/29/19 23:29 Dose: 1 mg Documented by: Lorazepam (Ativan) 1 mg PO QPM [facility] Stop: 03/01/19 20:59 Last Admin: 01/30/19 20:58 Dose: 1 mg Documented by: Magnesium Hydroxide (Milk Of Magnesia) 30 ml PO Q6H PRN PRN Reason: Constipation Stop: 02/27/19 23:55 Last Admin: 01/30/19 12:28 Dose: 30 ml Documented by: Miscellaneous (Fentanyl Patch Check Placement) 1 ea N/A QS [facility] Stop: 02/28/19 07:59 Last Admin: 01/31/19 07:55 Dose: 1 ea Documented by: Miscellaneous (Fentanyl Patch Remove & Waste) 1 ea N/A Q3D [facility] Stop: 03/03/19 00:48 Multivitamins (Multivitamin Tab) 1 tab PO QAM [facility] Stop: 02/28/19 08:59 Last Admin: 01/31/19 09:24 Dose: 1 tab Documented by: Oxycodone HCl (Oxycontin) 10 mg PO Q12 [facility] Stop: 02/13/19 11:44 Last Admin: 01/31/19 07:54 Dose: 10 mg Documented by: Oxycodone HCl (Roxicodone Immediate Rel) 10 mg PO Q3H PRN PRN Reason: Pain Stop: 02/13/19 18:07 Last Admin: 01/31/19 09:25 Dose: 10 mg Documented by: Polyethylene Glycol (Miralax Powder Packet) 17 gm PO DAILY PRN PRN Reason: Constipation Stop: 02/27/19 23:55 Prochlorperazine (Compazine) 10 mg PO Q6H PRN PRN Reason: Nausea Stop: 02/27/19 23:55 Last Admin: 01/29/19 20:55 Dose: 10 mg Documented by: Senna/Docusate Sodium (Senokot S) 1 tab PO BID [facility] Stop: 02/28/19 20:59 Last Admin: 01/31/19 09:25 Dose: 1 tab Documented by: Tramadol HCl (Ultram) 50 mg PO Q4H PRN PRN Reason: Pain Stop: 02/27/19 23:55 Last Admin: 01/31/19 11:19 Dose: 50 mg Documented by: Vitamin D (Vitamin D3) 2,000 units PO QAM [facility] Stop: 02/28/19 08:59 Last Admin: 01/31/19 09:25 Dose: 2,000 units Documented by: (1) Anemia Anemia type: unspecified type Qualified Code(s): D64.9 - Anemia, unspecified
[2019-01-31] MEDS: ACETAMINOPHEN 325 MG TAB PO PRN (14:55)
[2019-01-31] MEDS: ONDANSETRON HCL 8 MG in DEXTROSE 5% 50 ML IV PRN (15:27)
[2019-01-31] MEDS: PROMETHAZINE HCL 12.5 MG in SODIUM CHLORIDE 0.9% 50 ML IV PRN (18:47)
[2019-01-31] MEDS: LORazepam 1 MG TAB PO SCH (21:02)
[2019-02-01] MEDS: OXYCODONE HCL IR 5 MG TAB (IMMEDIATE RELEASE) PO PRN ×5 (00:31→18:02)
[2019-02-01] MEDS: fentaNYL 25 MCG/HR TDSY TD SCH (00:31)
[2019-02-01] MEDS: TRAMADOL HCL 50 MG TABLET PO PRN ×2 (01:09→16:57)
[2019-02-01 05:52] LABS: Hematocrit (blood only) 29.6 % (37-47); Hemoglobin 10.1 g/dL (12.0-16.0); Mean Corpuscular Hgb Conc 34.1 g/dL (32-36); Mean Corpuscular Volume 92.8 fL (80-100); Mean Platelet Volume 9.6 fL (7.4-10.4); Platelet Count 194 K/uL (130-400); RDW Coefficient of Variation 15.8 % (11.5-14.5); RDW Standard Deviation 53.8 fL (36.4-46.3); Red Blood Count 3.19 M/uL (4.2-5.4); White Blood Count 19.67 K/uL (4.8-10.8)
[2019-02-01] MEDS: DEXAMETHASONE SOD PHOSPHATE 4 MG in SYRINGE 0 ML IV SCH (06:28)
[2019-02-01 06:35] LABS: BUN Creatinine Ratio 30.2 (10-20); Calcium 8.5 mg/dl (8.5-10.1); Creatinine Clr Calc Pharmacy 68.9 ml/min; Est GFR (African American) 106.9; Est GFR (Non-African American) 92.2; Potassium 4.5 mmol/L (3.5-5.1)
[2019-02-01] MEDS: OXYCODONE HCL 10 MG TABCR (OXYCONTIN) PO SCH ×2 (07:19→20:48)
[2019-02-01] MEDS: ENOXAPARIN INJ 40 MG/0.4 ML SYR SQ SCH (07:20)
[2019-02-01] MEDS: LORATADINE 10 MG TAB PO SCH (07:21)
[2019-02-01] MEDS: MULTIVITAMIN TAB PO SCH (07:21)
[2019-02-01] MEDS: DOCUSATE SODIUM/SENNA 50/8.6MG TAB PO SCH ×2 (07:21→20:49)
[2019-02-01] MEDS: CHOLECALCIFEROL 1,000 UNITS TAB PO SCH (07:21)
[2019-02-01] MEDS: PROMETHAZINE HCL 12.5 MG in SODIUM CHLORIDE 0.9% 50 ML IV PRN ×2 (07:31→15:29)
[2019-02-01] MEDS ORDERED: fentaNYL 12 MCG/HR TDSY TD SCH (11:30)
[2019-02-01] MEDS ORDERED: fentaNYL 25 MCG/HR TDSY TD SCH ×2 (11:30)
[2019-02-01] MEDS: CHECK FENTANYL PATCH PLACEMENT SCH ×2 (11:56→16:58)
[2019-02-01] MEDS: PANTOprazole 40 MG TAB PO SCH ×2 (12:37→20:49)
[2019-02-01] MEDS: SUCRALFATE 1 GM TAB PO SCH ×3 (12:37→20:48)
[2019-02-01] MEDS: ONDANSETRON HCL 8 MG in DEXTROSE 5% 50 ML IV PRN (12:52)
--- NOTE | 2019-02-01 13:50 | Hospitalist Progress Note ---
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 CT scan does show persistent hepatic metastases. CT also does show new bony metastases. d/w Dr. Chávez, there have been compliance issues as outpatient was prescribed Methadone, would take some days, other days would not Fentanyl patch was tried, she would sometimes leave the old patch on and place a new once causing unintentional overdose, lethargy Plan: increase Fentanyl patch from 25 to 37mcg starting today, patient did not want to increase to 50mcg continue Oxycontin 10mg BID since it is helping, could increase increase frequency of OxyIR 10mg to every 3 hours, some improvement in pain not sure that Decadron is helping, stop IV decadron start PO at q12 but not sure it would even be worth continuing on discharge no current role for radiation therapy, they would like to see how pain is controlled when medications are maximized if still having pain as outpatient could follow up with radiation oncology (2) Bony metastasis: As above. CT on admission shows that mets have increased in number, diffuse chemotherapy has failed calcium is normal (3) Small cell lung carcinoma: completed [address] Ohara recommends considering immune therapy generally well tolerated, about a third of patients have a favorable response patient knows that there are no curative treatments Dr. Ohara will work on getting patient follow up this week (4) Liver metastases: See above (5) Anxiety disorder: Continue lorazepam 1 mg p.o. every evening as needed. (6) Hypocalcemia: Ca is slightly low at 8.1 but corrected is normal (7) Anemia: low at 9.1 on admission over past few months has ranged 8.5 to 9.5 likely bone marrow suppression from chemo Hb is 10 today, stable (8) Gastritis: suspected, has not had EGD, doubt she would want one currently epigastric, post prandial pain Tums helps the pain at home will start Protonix 40mg PO BID x 2 weeks and try Carafate 1gm QID x 7 days to look for relief if it helps then would support gastritis or GERD diagnosis can follow up with her PCP about this issue Plan: d/c to home once pain is well controlled touch base with palliative care tomorrow patient should follow up with DR. Holbrook this week Subjective patient frustrated, says pain comes in waves, very intense it was down to a 1 yesterday but then quickly jumped to 10 again today she is having pain, mostly in her sacral area has RUQ pain with her liver and has post prandial pain, even after drinking water no known gastritis or GERD, says that Tums help at home reviewed labs, WBC up due to Decadron Hb stable at 10 discussed options, room to increase narcotics offered to raise Fentanyl from 25mcg to 50mcg, she said that made her nervous, would want 37mcg instead offered to raise Oxycontin from 10mg to 20mg BID, she just wants to try increasing the Fentanyl discussed treating the epigastric pain with Protonix and Carafate, she agreed Review of Systems Review of Systems: All systems reviewed & are unremarkable except as noted in HPI & below Gastrointestinal: + abdominal pain (epigastric and RUQ), + belching and + nausea; no vomiting, no constipation and no diarrhea/loose stools Musculoskeletal: + back pain (severe low back pain) Physical Exam Constitutional: WD/WN, vitals as above no acute distress Eyes: PERRL, conjunctivae normal, anicteric sclerae ENMT: external ear and nose normal, oropharynx normal Neck: trachea midline, no thyromegaly Respiratory: normal respiratory effort, lungs clear to auscultation Cardiovascular: RRR, no murmur, no edema Gastrointestinal (Abdomen): Inspection/Auscultation: abdomen normal to inspection; abdomen not distended Percussion/Palpation: + abdomen tender (RUQ), abdomen soft and + hepatomegaly (can feel liver edge, can palpate tumors); no guarding and abdomen not rigid Musculoskeletal: no cyanosis or clubbing, extremities motor strength 5/5 Spine: + limited thoraco-lumbar ROM and + sacral tenderness Skin: no rashes, warm and dry Neurologic: patellar DTR's 2+ bilat, sensation intact and PERRL, EOMI, accommodation nl, no face palsy, no dysarthria Psychiatric: Orientation: alert and oriented x 3 Affect: + depressed affect Mood: + depressed mood Lymphatic: no cervical or axillary lymphadenopathy Results & Data Vital Signs (Past 12 Hours) Vital Signs Temp Pulse Resp BP Pulse Ox 02/01/19 11:39 36.6 C 109 H 16 135/84 96 02/01/19 07:32 37.0 C 99 H 16 143/94 H 95 Laboratory Results Laboratory Results - last 24 hr 02/01/19 02/01/19 05:24 05:24 WBC 19.67 H RBC 3.19 L Hgb 10.1 L Hct 29.6 L MCV 92.8 MCH 31.7 MCHC 34.1 RDW Std Deviation 53.8 H RDW Coeff of Tesfaye 15.8 H Plt Count 194 MPV 9.6 Sodium 132 L Potassium 4.5 Chloride 98 Carbon Dioxide 29 Anion Gap 5.0 BUN 21 H Creatinine 0.70 Est Cr Clr Drug Dosing 68.9 Est GFR ( Amer) 106.9 Est GFR (Non-Af Amer) 92.2 BUN/Creatinine Ratio 30.2 H Glucose 102 H Calcium 8.5 Medications Administered Current Inpatient Medications Acetaminophen (Tylenol) 650 mg PO Q4H PRN PRN Reason: pain/fever Stop: 02/27/19 23:55 Last Admin: 01/31/19 14:55 Dose: 650 mg Documented by: Al Hydrox/Mg Hydrox/Simethicone (Maalox) 30 ml PO Q6H PRN PRN Reason: Dyspepsia Stop: 02/27/19 23:55 Last Admin: 01/29/19 08:17 Dose: 30 ml Documented by: Dexamethasone (Decadron) 1 mg PO Q12H [facility] Stop: 03/03/19 17:59 Enoxaparin Sodium (Lovenox) 40 mg SQ Q24H [facility] Stop: 02/28/19 08:59 Last Admin: 02/01/19 07:20 Dose: 40 mg Documented by: Fentanyl (Duragesic) 25 mcg TD Q3D [facility] Stop: 02/15/19 11:29 Last Admin: 02/01/19 11:53 Dose: 25 mcg Documented by: Fentanyl (Duragesic) 12 mcg TD Q3D [facility] Stop: 02/15/19 11:29 Last Admin: 02/01/19 11:53 Dose: 12 mcg Documented by: Ondansetron HCl 8 mg/ Dextrose 54 mls @ 200 mls/hr IV Q8H PRN PRN Reason: Nausea And Vomiting Stop: 02/28/19 00:17 Last Infusion: 02/01/19 13:09 Dose: Infused Documented by: Promethazine HCl 12.5 mg/ (Sodium Chloride) 50.5 mls @ 202 mls/hr IV Q3H PRN PRN Reason: Nausea Stop: 02/28/19 20:58 Last Infusion: 02/01/19 07:46 Dose: Infused Documented by: Ioversol (Optiray 320 100ml) 94 ml IV ONCE PRN PRN Reason: Interaction Checking Stop: 02/01/19 17:51 Last Admin: 01/28/19 17:52 Dose: 94 ml Documented by: Loratadine (Claritin) 10 mg PO QAM [facility] Stop: 02/28/19 08:59 Last Admin: 02/01/19 07:21 Dose: 10 mg Documented by: Lorazepam (Ativan) 1 mg PO PM PRN PRN Reason: anxiety/sleep Stop: 02/27/19 23:55 Last Admin: 01/29/19 23:29 Dose: 1 mg Documented by: Lorazepam (Ativan) 1 mg PO QPM [facility] Stop: 03/01/19 20:59 Last Admin: 01/31/19 21:02 Dose: 1 mg Documented by: Magnesium Hydroxide (Milk Of Magnesia) 30 ml PO Q6H PRN PRN Reason: Constipation Stop: 02/27/19 23:55 Last Admin: 01/30/19 12:28 Dose: 30 ml Documented by: Miscellaneous (Fentanyl Patch Check Placement) 1 ea N/A QS [facility] Stop: 02/28/19 07:59 Last Admin: 02/01/19 11:56 Dose: 1 ea Documented by: Miscellaneous (Fentanyl Patch Remove & Waste) 1 ea N/A Q72H [facility] Stop: 03/06/19 11:28 Multivitamins (Multivitamin Tab) 1 tab PO QAM [facility] Stop: 02/28/19 08:59 Last Admin: 02/01/19 07:21 Dose: 1 tab Documented by: Oxycodone HCl (Oxycontin) 10 mg PO Q12 [facility] Stop: 02/13/19 11:44 Last Admin: 02/01/19 07:19 Dose: 10 mg Documented by: Oxycodone HCl (Roxicodone Immediate Rel) 10 mg PO Q3H PRN PRN Reason: Pain Stop: 02/13/19 18:07 Last Admin: 02/01/19 10:05 Dose: 10 mg Documented by: Pantoprazole Sodium (Protonix) 40 mg PO BID [facility] Stop: 03/03/19 11:59 Last Admin: 02/01/19 12:37 Dose: 40 mg Documented by: Polyethylene Glycol (Miralax Powder Packet) 17 gm PO DAILY PRN PRN Reason: Constipation Stop: 02/27/19 23:55 Prochlorperazine (Compazine) 10 mg PO Q6H PRN PRN Reason: Nausea Stop: 02/27/19 23:55 Last Admin: 01/29/19 20:55 Dose: 10 mg Documented by: Senna/Docusate Sodium (Senokot S) 1 tab PO BID [facility] Stop: 02/28/19 20:59 Last Admin: 02/01/19 07:21 Dose: 1 tab Documented by: Sucralfate (Carafate Tab) 1 gm PO QID [facility] Stop: 03/03/19 12:59 Last Admin: 02/01/19 12:37 Dose: 1 gm Documented by: Tramadol HCl (Ultram) 50 mg PO Q4H PRN PRN Reason: Pain Stop: 02/27/19 23:55 Last Admin: 02/01/19 01:09 Dose: 50 mg Documented by: Vitamin D (Vitamin D3) 2,000 units PO QAM [facility] Stop: 02/28/19 08:59 Last Admin: 02/01/19 07:21 Dose: 2,000 units Documented by: (1) Anemia Anemia type: unspecified type Qualified Code(s): D64.9 - Anemia, unspecified
[2019-02-01] MEDS: ALUMINUM/MAGNESIUM SUSP 30 ML UDC PO PRN (17:02)
[2019-02-01] MEDS: dexAMETHasone 1 MG TAB PO SCH (17:02)
[2019-02-01] MEDS: LORazepam 1 MG TAB PO SCH (20:48)
[2019-02-02] MEDS: CHECK FENTANYL PATCH PLACEMENT SCH ×3 (00:13→15:48)
[2019-02-02] MEDS: OXYCODONE HCL IR 5 MG TAB (IMMEDIATE RELEASE) PO PRN ×5 (00:15→19:08)
[2019-02-02] MEDS: TRAMADOL HCL 50 MG TABLET PO PRN ×2 (02:22→13:55)
[2019-02-02] MEDS: dexAMETHasone 1 MG TAB PO SCH ×2 (05:40→19:08)
[2019-02-02] MEDS: ONDANSETRON HCL 8 MG in DEXTROSE 5% 50 ML IV PRN ×2 (07:56→16:07)
--- NOTE | 2019-02-02 08:52 | Progress Note ---
DATE: 02/02/2019 MEDICAL ONCOLOGY PROGRESS NOTE DIAGNOSES: 1. Intractable pain. 2. Extensive small cell cancer. 3. Osseous metastasis. 4. Gastritis. 5. Anxiety. 6. Hypocalcemia. SUBJECTIVE: Oralia is a pleasant 63-year-old patient of mine currently suffering from progressing extensive stage small cell lung cancer. She was admitted prior to the weekend with intractable pain. I have continued to struggle with Oralia regards to compliance and her pain meds. I believe that while at home, she was taking pain medication pretty much when she felt like there were any adverse effects she immediately would stop allowing her pain to return. It is my understanding she is now receiving fentanyl 37.5 and her oxycodone breakthrough dose has been increased to 20. Oralia expresses concern of feeling like a zombie and advised her that there are no opiates out there that Oralia is going to have that kind of effect and she needs to compromise and understand that pain control will never be zero, but we will do everything we can to make her quality of life better. She states her dietary intake is not in the best, but denies any overt nausea other than when she drinks a large volume of water. She has resorted to taking sips at this juncture. PHYSICAL EXAMINATION: GENERAL: She is in no acute distress, very pleasant at bedside today. VITAL SIGNS: Temperature 36.4, pulse 91, respiratory rate 16, blood pressure 96/63. SKIN: Without rash or lesion. HEENT: Head: Atraumatic, normocephalic. Oral mucosa without erythema or ulceration. NECK: Supple. HEART: Regular rate and rhythm. LUNGS: Clear to auscultation bilaterally. ABDOMEN: Soft, nontender, nondistended. EXTREMITIES: No clubbing, cyanosis or edema. IMPRESSION: 1. Intractable skeletal pain, attributable to disease progression. 2. Extensive stage small cell lung cancer. 3. Hypocalcemia. 4. Anxiety disorder. I appreciate the hospitalist efforts in preparing Oralia towards discharge. Seems like her pain is better controlled, but she does admit pain sometimes comes in waves. I discussed possible therapies moving forward. Perhaps nivolumab in combination with ipilimumab would be the next therapy offered. Her prognosis is exceedingly poor, but nonetheless she wants to continue her fight and will make arrangements to have her seen in the office within a week or two after discharge. Thank you again for assisting us in the care of this very pleasant patient.
[2019-02-02] MEDS: LORATADINE 10 MG TAB PO SCH (09:24)
[2019-02-02] MEDS: PANTOprazole 40 MG TAB PO SCH ×2 (09:24→20:43)
[2019-02-02] MEDS: MULTIVITAMIN TAB PO SCH (09:24)
[2019-02-02] MEDS: OXYCODONE HCL 10 MG TABCR (OXYCONTIN) PO SCH ×2 (09:24→20:42)
[2019-02-02] MEDS: SUCRALFATE 1 GM TAB PO SCH ×4 (09:24→20:42)
[2019-02-02] MEDS: DOCUSATE SODIUM/SENNA 50/8.6MG TAB PO SCH ×2 (09:25→20:43)
[2019-02-02] MEDS: CHOLECALCIFEROL 1,000 UNITS TAB PO SCH (09:25)
[2019-02-02] MEDS: ENOXAPARIN INJ 40 MG/0.4 ML SYR SQ SCH (09:26)
--- NOTE | 2019-02-02 10:00 | Palliative Care Progress Note ---
Date of Service February 02, 2019 Assessment & Plan (1) Palliative care encounter: -Over the weekend, despite her hesitation, she did eventually allow the Hospitalist to increase her Fentanyl patch from 25 mcg to 37.5 mcg. -She currently is on the following pain regimen which she states she feels comfortable with right now: Fentanyl 37.5mcg TD Q3D, Oxycontin 20mg po BID, OXY IR 10 mg po Q3 PRN, Tramadol 50 mg Q4 PRN She has taken 5 doses of Oxy IR in the past 24 hours and 2 doses of Tramadol in the past 24 hours -I did explain that it could be more difficult to manage her long-acting medications (Fentanyl patch and Oxycontin) with the Tramadol which likely has little benefit to providing relief with bone mets. She did decline removing the Tramadol from her regimen at this time. -Ultimately, my goal is to continue increasing her Fentanyl patch with her support, tomorrow, with hopeful decrease of IR use. -We did discuss medical marijuana which she is very receptive to and I advised the process and will assist with arranging. She mentioned she did discuss medical marijuana with Dr. Holbrook who was in support. -Patient stated that she knows she is going to and feels helpless about this. She said that she is beginning to understand that she will need more pain medications than what she initially thought. -We discussed compliance issues and need for consistency of pain management when she does return home. I explained that if she is feeling like her pain is contro lled, to continue taking the long-acting prescribed medications to prevent a large spike in pain, which at that point, will be more challenging to get under control. -I think that Home Health could benefit from a pain management, compliance standpoint to prevent rehospitalization, etc. -She has used [facility] before for RN/PT/OT/[employer] in August 2018 and she was happy with them. I notified Case Management for possible referral. -Will continue to follow and assist with pain management as patient allows. (2) Cancer related pain: (3) Bony metastasis: (4) Metastatic primary lung cancer: (5) H/O liver cancer: Subjective -Patient states that she is mostly having trouble sleeping due to her pain in her lower back. -She reports her pain level to be '4/10' but states she has a hard time putting a number to it. -Patient did have episode of nausea today after eating. She did have (+) appetite and ate 100% of her breakfast. -Patient stated that she knows she is going to and feels helpless about this. Review of Systems Ear, Nose, Mouth, Throat: as per Subjective / HPI Gastrointestinal: + constipation Musculoskeletal: as per Subjective / HPI Integumentary: as per Subjective / HPI Neurologic: as per Subjective / HPI Psychiatric: + hopelessness Physical Exam Constitutional: well developed and + ill appearing Eyes: PERRL, conjunctivae normal, anicteric sclerae ENMT: external ear and nose normal, oropharynx normal Neck: trachea midline, no thyromegaly Respiratory: normal respiratory effort Auscultation: + diminished lung sounds Cardiovascular: Rate/Rhythm: regular rate and regular rhythm Heart Sounds: normal S1 and normal S2 Extremities: normal capillary refill Gastrointestinal (Abdomen): Inspection/Auscultation: + abdomen distended Percussion/Palpation: + guarding (RUQ + liver mets), abdomen soft and + abdomen firm Skin: no rashes, warm and dry normal turgor and + pallor Psychiatric: Affect: + anxious affect and + tearful affect Mood: + anxious mood Judgement: good judgement Lymphatic: no cervical or axillary lymphadenopathy Results & Data Vital Signs (Past 12 Hours) Vital Signs Temp Pulse Resp BP Pulse Ox 02/02/19 07:28 36.4 C L 91 H 16 96/63 L 95 02/02/19 04:00 36.4 C L 105 H 19 110/76 97 02/01/19 23:56 36.7 C 62 20 126/79 91 Time Spent Midlevel Total time spent 65 minutes with > 50% of that time spent discussing pain and symptom management with the patient and discharge planning with IDT.
--- NOTE | 2019-02-02 12:44 | Hospitalist Progress Note ---
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 CT scan does show persistent hepatic metastases. CT also does show new bony metastases. d/w Dr. Chávez, there have been compliance issues as outpatient was prescribed Methadone, would take some days, other days would not Fentanyl patch was tried, she would sometimes leave the old patch on and place a new once causing unintentional overdose, lethargy Pain is improved somewhat today in the abdomen, remains in the lower back Plan: Continue Fentanyl patch 37mcg started on 02/01, consider increasing to 50mcg on 02/03 as per Palliative Care continue Oxycontin 10mg BID Continu OxyIR 10mg every 3 hours prn and try to cut back on this with increase in long acting opiate not sure that Decadron is helping, have since discotninued IV decadron and is on decadron 1mg po bid--> taper down -bowel regimen--> continue sennsa/docusate 1 tab bid and add Bisacodyl suppos. MOM causes cramping <miralax doesn't work for her -also placed referral for Medical Marijuana as outpt no current role for radiation therapy, they would like to see how pain is controlled when medications are maximized if still having pain as outpatient could follow up with radiation oncology (2) Bony metastasis: As above. CT on admission shows that mets have increased in number, diffuse chemotherapy has failed calcium is normal (3) Small cell lung carcinoma: completed [address] Ohara recommends considering immune therapy generally well tolerated, about a third of patients have a favorable response patient knows that there are no curative treatments Dr. Ohara will work on getting patient follow up this week (4) Liver metastases: See above (5) Anxiety disorder: Continue lorazepam 1 mg p.o. every evening as needed. (6) Hypocalcemia: Ca is slightly low at 8.1 but corrected is normal (7) Anemia: low at 9.1 on admission over past few months has ranged 8.5 to 9.5 likely bone marrow suppression from chemo Hb is 10, stable (8) Gastritis: suspected, has not had EGD, doubt she would want one currently epigastric, post prandial pain Tums helps the pain at home Continue Protonix 40mg PO BID x 2 weeks and Carafate 1gm QID x 7 days to look for relief if it helps then would support gastritis or GERD diagnosis can follow up with her PCP about this issue Plan: d/c to home once pain is well controlled Apprecaite palliative care management patient should follow up with DR. Holbrook this week Discharge in the next 1-2 days hopefully once pain better controlled, with home health (9) DVT prophylaxis: Add Lovenox given prolonged stay, continue SCDs, ambulation Subjective [place] nauseated this AM and at lunch because if it takes too long to get food, she gets nauseated. Pain is fairly severe today in the lower back, abdomen is better. Took Oxy IR 5 x and tramadol 2x in last 24 hrs. Is nervous about further increasing dose of Fentanyl patch. Review of Systems Review of Systems: All systems reviewed & are unremarkable except as noted in HPI & below Physical Exam Constitutional: WD/WN, vitals as above (alopecia) Eyes: PERRL, conjunctivae normal, anicteric sclerae Neck: trachea midline, no thyromegaly Respiratory: normal respiratory effort, lungs clear to auscultation Cardiovascular: Rate/Rhythm: regular rhythm and + tachycardic (mild) Heart Sounds: no murmur Extremities: no edema Gastrointestinal (Abdomen): Inspection/Auscultation: abdomen normal to inspection, + abdomen distended (mildly distended but soft) and normal bowel sounds Percussion/Palpation: abdomen nontender Musculoskeletal: Extremities: extremities normal to inspection; no cyanosis and no clubbing Skin: no rashes, warm and dry Neurologic: moves all extremities and awake; no focal motor deficits Psychiatric: A+Ox3, euthymic affect Results & Data Vital Signs (Past 12 Hours) Vital Signs Temp Pulse Resp BP BP Pulse Ox 02/02/19 11:31 36.9 C 106 H 16 93/64 L 96 02/02/19 09:40 114/77 02/02/19 07:28 36.4 C L 91 H 16 96/63 L 95 02/02/19 04:00 36.4 C L 105 H 19 110/76 97 (1) Anemia Anemia type: unspecified type Qualified Code(s): D64.9 - Anemia, unspecified
[2019-02-02] MEDS ORDERED: BISACODYL 10 MG SUPP PR PRN (12:45)
[2019-02-02] MEDS ORDERED: ENOXAPARIN INJ 40 MG/0.4 ML SYR SQ SCH (13:00)
[2019-02-02] MEDS: ALUMINUM/MAGNESIUM SUSP 30 ML UDC PO PRN ×2 (13:55→20:48)
[2019-02-02] MEDS ORDERED: ALUMINUM/MAGNESIUM SUSP 30 ML UDC PO STA (16:52)
[2019-02-02] MEDS: LORazepam 1 MG TAB PO SCH (20:42)
[2019-02-03] MEDS: CHECK FENTANYL PATCH PLACEMENT SCH ×3 (00:21→15:32)
[2019-02-03] MEDS: OXYCODONE HCL IR 5 MG TAB (IMMEDIATE RELEASE) PO PRN ×7 (00:24→22:35)
[2019-02-03] MEDS: TRAMADOL HCL 50 MG TABLET PO PRN ×4 (02:03→20:17)
[2019-02-03] MEDS: dexAMETHasone 1 MG TAB PO SCH (06:10)
[2019-02-03] MEDS: ONDANSETRON HCL 8 MG in DEXTROSE 5% 50 ML IV PRN ×2 (07:40→16:07)
[2019-02-03] MEDS: PANTOprazole 40 MG TAB PO SCH ×2 (07:52→20:19)
[2019-02-03] MEDS: CHOLECALCIFEROL 1,000 UNITS TAB PO SCH (07:52)
[2019-02-03] MEDS: SUCRALFATE 1 GM TAB PO SCH ×4 (07:52→20:18)
[2019-02-03] MEDS: DOCUSATE SODIUM/SENNA 50/8.6MG TAB PO SCH ×2 (07:53→20:18)
[2019-02-03] MEDS: ENOXAPARIN INJ 40 MG/0.4 ML SYR SQ SCH (07:53)
[2019-02-03] MEDS: LORATADINE 10 MG TAB PO SCH (07:53)
[2019-02-03] MEDS: MULTIVITAMIN TAB PO SCH (07:54)
--- NOTE | 2019-02-03 09:07 | Progress Note ---
DATE: 02/03/2019 MEDICAL ONCOLOGY PROGRESS NOTE DIAGNOSES: 1. Intractable skeletal pain. 2. Extensive small cell lung cancer. 3. Osseous metastases. 4. Gastritis. 5. Anxiety. SUBJECTIVE: Oralia is a pleasant 63-year-old patient, currently under my care and CCP for extensive stage small cell lung cancer. She is now hospital day #5. Pain remains suboptimally controlled. I worry about compliance with Oralia moving forward because as previous I believe she takes her medications only when she wants to and does not do an effective job staying ahead of the pain curve. At this juncture, we will be better served asking radiation oncology to see her to potentially palliate her pain with external beam therapy. Nursing reports no overnight difficulties. We will plan for salvage immune therapy upon discharge. PHYSICAL EXAMINATION: GENERAL: A pleasant 63-year-old female, in no acute distress. VITAL SIGNS: Temperature 36.5, pulse 89, respiratory rate 18, blood pressure 126/84. SKIN: Without rash or lesion. HEENT: Oral mucosa without erythema or ulceration. NECK: Supple. HEART: Regular rate and rhythm. LUNGS: Clear to auscultation bilaterally. ABDOMEN: Soft, nontender, nondistended. EXTREMITIES: No clubbing, cyanosis or edema. NEUROLOGIC: Grossly intact. IMPRESSION: 1. Intractable skeletal pain, attributable to disease progression. 2. Extensive stage small cell lung cancer. 3. Hypercalcemia. 4. Anxiety disorder. PLAN: At this point, I would request getting radiation oncology activated to consider palliative XRT. Trying to control her pain with various doses of opioids has been fraught with difficulty. Once Oralia is discharged, we will plan to initiate immune therapy as salvage. Unfortunately, her prognosis is poor; however, Oralia wants to continue fighting on. We will continue to follow her periodically during her stay. Thank you very much for assisting us in the care of this very pleasant patient.
[2019-02-03] MEDS: OXYCODONE HCL 10 MG TABCR (OXYCONTIN) PO SCH ×2 (09:16→20:17)
--- NOTE | 2019-02-03 16:12 | Radiation Oncology Progress Nt ---
Date of Service February 03, 2019 Assessment & Plan (1) Small cell lung carcinoma: Assessment/Plan: Today, Oralia's pain seems to be better controlled. I will continue to recommend no radiation therapy at this point in time. We will have the patient come back for follow-up evaluation in the beginning of February 2019 to reassess her pain control. If she continues to have issues with pain control and we have exhausted all other options, we can consider a second course of palliative radiation therapy. Additionally, I would recommend the primary hospital team consider consulting pain management for consideration of interventional procedures to help control the patient's pain. I have spoken with pain management and there could be potential benefit for either an inpatient or outpatient consultation with their team. Please call us with any further questions. Present on Admission?: Yes
--- NOTE | 2019-02-03 16:25 | Hospitalist Progress Note ---
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 CT scan does show persistent hepatic metastases. CT also does show new bony metastases. d/w Dr. Chávez, there have been compliance issues as outpatient was prescribed Methadone, would take some days, other days would not Fentanyl patch was tried, she would sometimes leave the old patch on and place a new once causing unintentional overdose, lethargy Pain is improved somewhat today in the abdomen, remains in the lower back Plan: Increase Fentanyl patch to 50 mcg continue Oxycontin 10mg BID Continue OxyIR 10mg every 3 hours prn and try to cut back on this with increase in long acting opiate not sure that Decadron is helping, taper down to 1mg daily in the AM -bowel regimen--> continue sennsa/docusate 1 tab bid and add Bisacodyl suppos. Give MOM today after dinner-pt agreeable -also placed referral for Medical Marijuana as outpt no current role for radiation therapy, they would like to see how pain is controlled when medications are maximized-reconsulted today and d/w Dr. Hubbard given Dr. Holbrook's recommendations to do so--> plan still to give pain meds a chance to help for longer and if still no relief, reconsider XRT (2) Bony metastasis: As above. CT on admission shows that mets have increased in number, diffuse chemotherapy has failed calcium is normal (3) Small cell lung carcinoma: completed [address] Ohara recommends considering immune therapy generally well tolerated, about a third of patients have a favorable response patient knows that there are no curative treatments Dr. Ohara will work on getting patient follow up this week (4) Liver metastases: See above, Rad Onc says no role for XRT of liver mets and don't seem to be bothering her much (5) Anxiety disorder: Continue lorazepam 1 mg p.o. every evening as needed. (6) Hypocalcemia: Ca is slightly low at 8.1 but corrected is normal (7) Anemia: low at 9.1 on admission over past few months has ranged 8.5 to 9.5 likely bone marrow suppression from chemo Hb is 10, stable (8) Gastritis: suspected, has not had EGD, doubt she would want one currently epigastric, post prandial pain Tums helps the pain at home Continue Protonix 40mg PO BID x 2 weeks and Carafate x 1 week if it helps then would support gastritis or GERD diagnosis can follow up with her PCP about this issue Plan: d/c to home once pain is well controlled Appreciate palliative care management patient should follow up with DR. Holbrook this week Discharge in the next 1-2 days hopefully once pain better controlled, with home health (9) DVT prophylaxis: Lovenox ,continue SCDs, ambulation Subjective Pt had severe lower back pain this AM that wok eher from sleep. She asked for PT to come and do some stretching with her which helped a little bit. Is ready to increase her Fentanyl patch given high continued requirement for oxy IR and tramadol. DIscussed case with Palliative Care MD Review of Systems Review of Systems: All systems reviewed & are unremarkable except as noted in HPI & below Physical Exam Constitutional: WD/WN, vitals as above (alopecia) Eyes: PERRL, conjunctivae normal, anicteric sclerae ENMT: external ear and nose normal, oropharynx normal Neck: trachea midline, no thyromegaly Respiratory: normal respiratory effort, lungs clear to auscultation Cardiovascular: RRR, no murmur, no edema Rate/Rhythm: regular rhythm and + tachycardic (mild) Heart Sounds: no murmur Extremities: no edema Gastrointestinal (Abdomen): normal bowel sounds, soft, nontender, no hepatosplenomegaly Inspection/Auscultation: abdomen normal to inspection, + abdomen distended (mildly distended but soft) and normal bowel sounds Percussion/Palpation: abdomen nontender Musculoskeletal: Spine: + paraspinal tenderness (lumbar spine) Extremities: extremities normal to inspection; no cyanosis and no clubbing Skin: no rashes, warm and dry Neurologic: moves all extremities and awake; no focal motor deficits Psychiatric: Orientation: alert and oriented x 3 Affect: + depressed affect Results & Data Vital Signs (Past 12 Hours) Vital Signs Temp Pulse Pulse Resp BP Pulse Ox 02/03/19 15:00 36.8 C 101 H 18 104/69 95 02/03/19 11:00 36.9 C 106 H 18 114/74 96 02/03/19 07:51 36.5 C 89 18 126/84 99 02/03/19 04:29 36.6 C 102 H 20 123/69 96 (1) Anemia Anemia type: unspecified type Qualified Code(s): D64.9 - Anemia, unspecified
[2019-02-03] MEDS ORDERED: fentaNYL 50 MCG/HR TDSY TD SCH (17:30)
[2019-02-03] MEDS: LORazepam 1 MG TAB PO SCH (22:35)
[2019-02-04] MEDS: CHECK FENTANYL PATCH PLACEMENT SCH ×3 (01:07→16:12)
[2019-02-04] MEDS: OXYCODONE HCL IR 5 MG TAB (IMMEDIATE RELEASE) PO PRN ×5 (01:16→21:29)
[2019-02-04] MEDS: ONDANSETRON HCL 8 MG in DEXTROSE 5% 50 ML IV PRN (07:42)
[2019-02-04] MEDS: SUCRALFATE 1 GM TAB PO SCH ×4 (07:48→21:31)
[2019-02-04] MEDS: PANTOprazole 40 MG TAB PO SCH ×2 (07:49→21:32)
[2019-02-04] MEDS: CHOLECALCIFEROL 1,000 UNITS TAB PO SCH (07:51)
[2019-02-04] MEDS: DOCUSATE SODIUM/SENNA 50/8.6MG TAB PO SCH ×2 (07:51→21:32)
[2019-02-04] MEDS: MULTIVITAMIN TAB PO SCH (07:51)
[2019-02-04] MEDS: ENOXAPARIN INJ 40 MG/0.4 ML SYR SQ SCH (07:51)
[2019-02-04] MEDS: LORATADINE 10 MG TAB PO SCH (07:51)
[2019-02-04] MEDS: OXYCODONE HCL 10 MG TABCR (OXYCONTIN) PO SCH ×2 (08:58→21:29)
[2019-02-04] MEDS ORDERED: dexAMETHasone 1 MG TAB PO SCH (09:00)
[2019-02-04] MEDS: TRAMADOL HCL 50 MG TABLET PO PRN ×2 (11:31→19:02)
[2019-02-04] MEDS: PROMETHAZINE HCL 12.5 MG in SODIUM CHLORIDE 0.9% 50 ML IV PRN (11:43)
--- NOTE | 2019-02-04 14:41 | Hospitalist Progress Note ---
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 CT scan does show persistent hepatic metastases. CT also does show new bony metastases. d/w Dr. Chávez, there have been compliance issues as outpatient was prescribed Methadone, would take some days, other days would not Fentanyl patch was tried, she would sometimes leave the old patch on and place a new once causing unintentional overdose, lethargy Pain is improved somewhat today in the abdomen, remains in the lower back Plan: Continue the increased Fentanyl patch 50 mcg continue Oxycontin 10mg BID Continue OxyIR 10mg every 3 hours prn and try to cut back on this with increase in long acting opiate not sure that Decadron is helping, discontinue now -bowel regimen--> continue sennsa/docusate 1 tab bid and add Bisacodyl suppos. Give MOM today after lunch-again discussed with nursing -also placed referral for Medical Marijuana as outpt no current role for radiation therapy, they would like to see how pain is controlled when medications are maximized-reconsulted today and d/w Dr. Hubbard given Dr. Holbrook's recommendations to do so--> plan still to give pain meds a chance to help for longer and if still no relief, reconsider XRT (2) Bony metastasis: As above. CT on admission shows that mets have increased in number, diffuse chemotherapy has failed calcium is normal (3) Small cell lung carcinoma: completed [address] Ohara recommends considering immune therapy generally well tolerated, about a third of patients have a favorable response patient knows that there are no curative treatments Dr. Ohara will work on getting patient follow up this week (4) Liver metastases: See above, Rad Onc says no role for XRT of liver mets and don't seem to be bothering her much (5) Anxiety disorder: Continue lorazepam 1 mg p.o. every evening as needed. (6) Hypocalcemia: Ca is slightly low at 8.1 but corrected is normal (7) Anemia: low at 9.1 on admission over past few months has ranged 8.5 to 9.5 likely bone marrow suppression from chemo Hb is 10, stable (8) Gastritis: suspected, has not had EGD, doubt she would want one currently epigastric, post prandial pain Tums helps the pain at home Continue Protonix 40mg PO BID x 2 weeks and Carafate x 1 week if it helps then would support gastritis or GERD diagnosis can follow up with her PCP about this issue Plan: d/c to home once pain is well controlled Appreciate palliative care management patient should follow up with DR. Holbrook this week Discharge hopefully tomorrow with home health (9) DVT prophylaxis: Lovenox ,continue SCDs, ambulation Subjective Pain much improved. Not using breakthrough oxycodone as much. Nausea still requiring IV Zofran with meals but she is willing to switch to p.o. Zofran. She is excited about returning home soon official sleep better at home. She still has not moved her bowels yet. She did not receive milk of magnesia yesterday that I asked the nurses to give her. Review of Systems Review of Systems: All systems reviewed & are unremarkable except as noted in HPI & below Physical Exam Constitutional: WD/WN, vitals as above (alopecia) Eyes: PERRL, conjunctivae normal, anicteric sclerae ENMT: external ear and nose normal, oropharynx normal Neck: trachea midline, no thyromegaly Respiratory: normal respiratory effort, lungs clear to auscultation Cardiovascular: RRR, no murmur, no edema Rate/Rhythm: regular rhythm and + tachycardic (mild) Heart Sounds: no murmur Extremities: no edema Gastrointestinal (Abdomen): normal bowel sounds, soft, nontender, no hepatosplenomegaly Inspection/Auscultation: abdomen normal to inspection, + abdomen distended (mildly distended but soft) and normal bowel sounds Per cussion/Palpation: abdomen nontender Musculoskeletal: Spine: + paraspinal tenderness (lumbar spine) Extremities: extremities normal to inspection; no cyanosis and no clubbing Skin: no rashes, warm and dry Neurologic: moves all extremities and awake; no focal motor deficits Psychiatric: Orientation: alert and oriented x 3 Affect: + depressed affect Results & Data Vital Signs (Past 12 Hours) Vital Signs Temp Pulse Resp BP Pulse Ox 02/04/19 07:13 37.0 C 99 H 18 137/85 96 (1) Anemia Anemia type: unspecified type Qualified Code(s): D64.9 - Anemia, unspecified
[2019-02-04] MEDS: ONDANSETRON 8 MG TABLET PO SCH (16:37)
[2019-02-04] MEDS: LORazepam 1 MG TAB PO SCH (21:31)
[2019-02-04] MEDS: PROCHLORPERAZINE MALEATE 10 MG TAB PO PRN (21:31)
[2019-02-04] MEDS: LORazepam 1 MG TAB PO PRN (22:14)
[2019-02-05] MEDS: OXYCODONE HCL IR 5 MG TAB (IMMEDIATE RELEASE) PO PRN ×4 (00:28→18:40)
[2019-02-05] MEDS: CHECK FENTANYL PATCH PLACEMENT SCH ×3 (00:35→16:09)
[2019-02-05] MEDS: TRAMADOL HCL 50 MG TABLET PO PRN ×3 (02:32→16:07)
[2019-02-05] MEDS: ONDANSETRON 8 MG TABLET PO SCH ×3 (07:31→16:07)
[2019-02-05] MEDS: SUCRALFATE 1 GM TAB PO SCH ×3 (07:32→16:07)
[2019-02-05] MEDS: ENOXAPARIN INJ 40 MG/0.4 ML SYR SQ SCH (07:33)
[2019-02-05] MEDS: PANTOprazole 40 MG TAB PO SCH (07:33)
[2019-02-05] MEDS: CHOLECALCIFEROL 1,000 UNITS TAB PO SCH (09:53)
[2019-02-05] MEDS: MULTIVITAMIN TAB PO SCH (09:53)
[2019-02-05] MEDS: LORATADINE 10 MG TAB PO SCH (09:53)
[2019-02-05] MEDS: DOCUSATE SODIUM/SENNA 50/8.6MG TAB PO SCH (09:53)
[2019-02-05] MEDS: OXYCODONE HCL 10 MG TABCR (OXYCONTIN) PO SCH (09:53)
--- NOTE | 2019-02-05 12:43 | Discharge Summary ---
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 She had completed her first course of chemotherapy, and is in consideration for her next options as far as chemo treatment. Her pain has worsened gradually over the past 2 weeks, to the point that her medications are no longer controlling her pain, and she was referred to the emergency department for further assessment. Principal Diagnosis Intractable pain-back and abdomen Metastatic lung CA Discharge Exam Constitutional WD/WN, vitals as above (alopecia) Eyes PERRL, conjunctivae normal, anicteric sclerae ENMT external ear and nose normal, oropharynx normal Neck trachea midline, no thyromegaly Respiratory normal respiratory effort, lungs clear to auscultation Cardiovascular RRR, no murmur, no edema Rate/Rhythm: regular rhythm and + tachycardic (mild) Heart Sounds: no murmur Extremities: no edema Gastrointestinal (Abdomen) normal bowel sounds, soft, nontender, no hepatosplenomegaly Inspection/Auscultation: abdomen normal to inspection, + abdomen distended (mildly distended but soft) and normal bowel sounds Percussion/Palpation: abdomen nontender Musculoskeletal Spine: + paraspinal tenderness (lumbar spine) Extremities: extremities normal to inspection; no cyanosis and no clubbing Skin no rashes, warm and dry Neurologic moves all extremities and awake; no focal motor deficits Psychiatric Orientation: alert and oriented x 3 Affect: + depressed affect Discharge Data Allergies Allergy/AdvReac Type Severity Reaction Status Date / Time aspartame AdvReac Intermediate Headache Verified 01/28/19 15:21 epinephrine AdvReac Mild Palpitation Verified 01/28/19 15:21 s Consultations 01/28/19 19:44 ED Decision to Admit Stat 01/28/19 23:56 Consult Hematology Routine 01/29/19 11:32 Consult Palliative Care Routine 01/29/19 11:40 Consult Radiation Oncology Routine Ordered Studies 01/28/19 15:30 CT abd pelvis IV con only Stat Hospital Course (1) Cancer related pain: The patient presents to the emergency department with worsening pain associated with her 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 CT scan does show persistent hepatic metastases. CT also does show new bony metastases. d/w Dr. Chávez, there have been compliance issues as outpatient was prescribed Methadone, would take some days, other days would not Fentanyl patch was tried, she would sometimes leave the old patch on and place a new once causing unintentional overdose, lethargy Pain is improved somewhat since admission in the abdomen and lower back, is able to function better. Is ambulating, tolerating po Plan: Continue the increased Fentanyl patch 50 mcg continue Oxycontin 10mg BID Continue OxyIR 10mg every 3 hours prn-was only using 1 dose in 24 hours prior to discharge -continue aggressive bowel regimen for opioid-induced constipation -also placed referral for Medical Marijuana as outpt Rad Onc Consulted--> no current role for radiation therapy, they would like to see how pain is controlled when medications are maximized -follow up in 1 month if still not controlled (2) Bony metastasis: As above. CT on admission shows that mets have increased in number, diffuse chemotherapy has failed calcium is normal (3) Small cell lung carcinoma: completed [address] Ohara recommends considering immune therapy generally well tolerated, about a third of patients have a favorable response patient knows that there are no curative treatments Dr. Ohara will work on getting patient follow up this week (4) Liver metastases: See above, Rad Onc says no role for XRT of liver mets and don't seem to be bothering her much (5) Anxiety disorder: Continue lorazepam 1 mg p.o. every evening as needed. (6) Hypocalcemia: Ca is slightly low at 8.1 but corrected is normal (7) Anemia: low at 9.1 on admission over past few months has ranged 8.5 to 9.5 likely bone marrow suppression from chemo Hb is 10, stable (8) Gastritis: suspected, has not had EGD, doubt she would want one currently epigastric, post prandial pain Tums helps the pain at home Continue Protonix 40mg PO BID x 2 weeks and Carafate x 1 week given while here if it helps then would support gastritis or GERD diagnosis can follow up with her PCP about this issue (9) DVT prophylaxis: Lovenox , SCDs, ambulation Dispo-stable for discharge to home with HomeHealth Needs assistance with compliance with medications as she gets confused easily. She states there is no one that can help her with her medications--> Home Health RN to assist Total Time Total Time Spent Total Time Spent (In Minutes): >30 min Total Time Includes: Examination of the Patient, Discharge Planning and Medication Reconciliation Discharge Plan Discharge Items Patient Disposition: Home - Home Health Services Reason For Visit: INTRACTABLE ABDOMINAL AND BACK CANCER PAIN Discharge Diagnosis: Intractable back and abdominal pain Condition: Fair Discharge Goals: Decrease discomfort, Improve disease control, Learn about illness and Therapeutic intervention Activity: As commented below Lifting: None Bathing: No limitations Exercise/Sports: As tolerated Driving/Machine Use Comment: No driving while taking pain medications Non-emergency contact: Primary Care Provider and Oncologist Call non-emergency contact if: you have any medication questions, your symptoms worsen, your pain is not controlled, your pain is worsening, your pain is unusual for you, your pain is concerning for you and your temperature is above 100.5 Follow-up/Referrals: [facility] [Other] (Please, call [facility] to arrange a follow up for medical marijuana treatment. The phone number is [phone]. ) Latha Warren DO [Primary Care Provider] - 02/11/19 10:20 am (Please, follow up at Dr. Warren's office with her associate, Thomas NUÑEZ, on SaturdayFebruary 11 at 10:20 am. *If you need to change this appointment, call their office at [phone].) Sharonda Peñaloza MD [Physician] - 02/10/19 2:00 pm (Please, follow up with Dr. Peñaloza at [facility] on SaturdayFebruary 10 at 2:[address] PEÑALOZA AND THEN PALOMO NUÑEZ *If you need to change this appointment, call the office at [phone].) Palomo Vee CRNP [Nurse Practitioner] - 02/10/19 2:50 pm (Please, follow up at [facility] with Palomo NUÑEZ on SaturdayFebruary 10 at 2:50 pm. *If you need to change this appointment, call the office at [phone].) Diet: Regular Addtl Provider Instructions: You were admitted with severe pain from your cancer. You were increased on your Fentanyl patch to 50mcg. This patch needs to be changed EVERY 3 DAYS, removing the old one at the time you place the new patch. You were started on a LONG ACTING OXYCONTIN that is to be taken in the AM and at night every day no matter what. The IMMEDIATE RELEASE Oxycodone 10mg is to be taken NEEDED for when you still have severe pain despite taking the other medications as prescribed. It is important to be aggressive with getting your bowels to move. You can eat a high fiber diet, take stool softeners, drink Miralax, take Milk of Magnesia, etc. Please follow up with Dr. Holbrook/Palomo as scheduled for you. We also scheduled you an appointment with Dr. Chávez for further pain management follow up. Prescriptions: New oxycodone [OxyContin] 10 mg Tablet,Oral Only,Ext.Rel.12 Hr 10 mg PO Q12 30 Days Qty: 60 RF: 0 pantoprazole 40 mg Tablet,Delayed Release (Dr/Ec) 40 mg PO QAM Qty: 30 RF: 0 fentanyl 50 mcg/hr patch 72 hour 1 patch TD Q72H Qty: 5 RF: 0 Continued multivitamin Tablet 1 tab PO QAM RF: 0 cholecalciferol (vitamin D3) [Vitamin D3] 2,000 unit Tablet 2,000 unit PO QAM RF: 0 prochlorperazine maleate [Compazine] 10 mg tablet 10 mg PO UD PRN (Reason: Nausea) RF: 0 lorazepam [Ativan] 1 mg tablet 1 mg PO PM PRN (Reason: anxiety/sleep) RF: 0 tramadol 50 mg Tablet 50 mg PO Q4H PRN (Reason: pain) Qty: 30 RF: 0 loratadine [Allergy Relief (loratadine)] 10 mg tablet 10 mg PO QAM RF: 0 ondansetron HCl [Zofran] 8 mg tablet 8 mg PO Q8 PRN (Reason: Nausea) Qty: 30 RF: 0 Changed oxycodone 10 mg tablet 10 mg PO Q4 PRN (Reason: breakthrough pain) Qty: 0 RF: 0 Discontinued fentanyl [Duragesic] 25 mcg/hr patch 72 hour 1 patch topical [id number] RF: 0 Stand-Alone Forms: [facility] Discharge Orders: Discharge Order (Routine); Ordered 02/05/19 Ordered By: Carine Bolden Admission Data Admit Date/Time: 01/28/19 22:11 Attending Provider: aCrine Bolden Admit Provider: Chad Burden Primary Care Provider: Latha Warren Other Providers: Chad Burden ; Sameer Holbrook V ; Sharonda Peñaloza ; Dajuan Hubbard Service: Medical Other Interventions: Discharge Summary Assessment (RN) Last Done: 02/05/19 13:17 Pending Studies at Discharge: No DC Date/Time DO NOT enter until pt leaves facility: 02/05/19 19:04
[2019-02-05] MEDS: MAGNESIUM HYDROXIDE SUSP 30 ML UDC PO PRN (16:07)
== END 2019-02-05 19:04 | disposition home health service (06) | DRG 948 ==
LOC: ED 13:40 → SUATTDRO 22:11 → 4E 22:11
DX: D64.9 Anemia, unspecified; G89.3 Neoplasm related pain (acute) (chronic); K29.70 Gastritis, unspecified, without bleeding; Z91.14 Patient's other noncompliance with medication regimen; E22.2 Syndrome of inappropriate secretion of antidiuretic hormone; C79.51 Secondary malignant neoplasm of bone; E83.51 Hypocalcemia; F41.9 Anxiety disorder, unspecified; C34.02 Malignant neoplasm of left main bronchus; Z88.8 Allergy status to other drugs, medicaments and biological substances; C78.7 Secondary malignant neoplasm of liver and intrahepatic bile duct; Z87.891 Personal history of nicotine dependence